=== PATIENT | male | born 1945 | race Two or more races ===

== ENCOUNTER 2017-04-09 17:45 | Inpatient (IN) | payer SELFPAY ==
[~2017-04-09] VITALS: Ht 160 cm; Wt 104.8 kg
[~2017-04-09 17:45] MED LIST: CAR200T PO; LIS5T PO; TRAM-297 PO
[2017-04-09] MEDS ORDERED: PANTOPRAZOLE 40 MG/10 ML VIAL IV STA (18:24)
[2017-04-09] MEDS ORDERED: SODIUM CHLORIDE 0.9% 500 ML IVB ONE (18:24)
[2017-04-09] MEDS ORDERED: ONDANSETRON HCL 4 MG/2 ML VIAL IV ONE ×2 (18:30→20:45)
[2017-04-09] MEDS ORDERED: MORPHINE SULFATE 4 MG/ML SYR/VIAL IV ONE (18:30)
[2017-04-09 18:52] LABS: Albumin 3.2 g/dL (3.4-5.0); Potassium 3.3 mmol/L (3.5-5.1)
[2017-04-09 18:53] LABS: INR 1.11 (0.9-1.15); Partial Thromboplastin Time 32.1 sec (22.64-33.71); Prothrombin Time 12.1 sec (9.37-12.3)
[2017-04-09 18:54] LABS: Basophils # (auto) 0 uL; Eosinophils # (auto) 0 uL; Lymphocytes # (auto) 0.9 uL; Lymphocytes % (auto) 7.6 % (10.0-50.0)
[2017-04-09 18:59] LABS: BUN/Creatinine Ratio 11.2; Basophils % (auto) 0.2 % (0.0-2.0); Bilirubin, Total 2.7 mg/dL (0.2-1.0); Eosinophils % (auto) 0.1 % (0.0-7.0); Hematocrit 51.2 % (41.0-53.0); Hemoglobin 18.1 g/dL (13.5-17.5); Mean Corpuscular Hemoglobin 36.2 pg (28.0-32.0); Mean Corpuscular Hgb Conc. 35.3 g/dL (32.0-36.0); Mean Corpuscular Volume 102.4 fL (80.0-100.0); Monocytes # (auto) 0.9 uL; Monocytes % (auto) 7.3 % (0.0-12.0); Neutrophils # (auto) 10.2 uL; Neutrophils % (auto) 84.8 % (37.0-80.0); Nucleated Red Blood Cells % 0.7 %; Platelet Count (auto) 103 10^3/uL (140-450); Red Cell Distribution Width 14.4 % (11.8-14.3); Total Protein 7.8 g/dL (6.4-8.2)
[2017-04-09 19:01] LABS: Amylase 141 U/L (25-115); Lipase 274 U/L (73-393)
[2017-04-09] MEDS ORDERED: BENZOCAINE (DENTAL) 20 % SPRAY 60ML MT ONE (20:42)
[2017-04-09] MEDS ORDERED: HYDROcodone-ACET 5/325MG TAB PO PRN (21:00)
[2017-04-09] MEDS ORDERED: ACETAMINOPHEN 500 MG TAB PO PRN (21:00)
[2017-04-09] MEDS ORDERED: cefTRIAXone 1GM/10ml IVPUSH 10 ML IV ONE (21:15)
[2017-04-09] MEDS: metroNIDAZOLE 500MG/100ML 100 ML IV SCH (21:48)
[2017-04-09] MEDS ORDERED: SODIUM CHLORIDE 0.9% 1,000 ML IV SCH (23:30)
[2017-04-10 00:57] LABS: Urine Bacteria NONE SEEN /hpf (None Seen); Urine Blood 2+ /uL (Negative); Urine Hyaline Cast MANY /lpf (0 - 2); Urine Mucus FEW (None Seen); Urine Specific Gravity 1.021 (1.001-1.035); Urine WBC 11 /hpf (0 - 3)
[2017-04-10] MEDS ORDERED: cefTRIAXone 1GM/10ml IVPUSH 10 ML IV ONE (03:02)
[2017-04-10] MEDS: metroNIDAZOLE 500MG/100ML 100 ML IV SCH ×3 (05:44→22:06)
[2017-04-10 06:48] LABS: Basophils # (auto) 0 uL; Lymphocytes # (auto) 1.1 uL; Neutrophils # (auto) 8.3 uL; Nucleated Red Blood Cells % 0.1 %
[2017-04-10 06:50] LABS: Basophils % (auto) 0.2 % (0.0-2.0); Eosinophils # (auto) 0.1 uL; Eosinophils % (auto) 0.5 % (0.0-7.0); Hematocrit 45.3 % (41.0-53.0); Lymphocytes % (auto) 10.2 % (10.0-50.0); Mean Corpuscular Hemoglobin 36.3 pg (28.0-32.0); Mean Corpuscular Hgb Conc. 35.3 g/dL (32.0-36.0); Monocytes # (auto) 1.2 uL; Monocytes % (auto) 11.5 % (0.0-12.0); Neutrophils % (auto) 77.6 % (37.0-80.0); Platelet Count (auto) 70 10^3/uL (140-450); Red Cell Distribution Width 14.5 % (11.8-14.3); White Blood Cell 10.7 10^3/uL (4.4-10.8)
[2017-04-10 06:53] LABS: BUN/Creatinine Ratio 15.3; Calcium 7.9 mg/dL (8.5-10.1); Potassium 3.5 mmol/L (3.5-5.1)
[2017-04-10] MEDS: cefTRIAXone 1GM/10ml IVPUSH 10 ML IV SCH (09:47)
[2017-04-10] MEDS: ONDANSETRON HCL 4 MG/2 ML VIAL IV PRN ×2 (10:08→10:59)
[2017-04-10] MEDS: MORPHINE SULFATE 4 MG/ML SYR/VIAL IV PRN ×2 (10:08→15:44)
[2017-04-10] MEDS ORDERED: GASTROGRAFIN 120 ML SOL ONE (11:41)
[2017-04-10] MEDS: D5W/SOD CHL 0.45%/KCL 20MEQ 1,000 ML IV SCH ×2 (11:42→22:06)
[2017-04-10 17:08] LABS: Basophils # (auto) 0 uL; Basophils % (auto) 0.3 % (0.0-2.0); Eosinophils # (auto) 0.1 uL; Mean Corpuscular Hgb Conc. 35.4 g/dL (32.0-36.0); Neutrophils # (auto) 7.5 uL
[2017-04-10 17:10] LABS: Eosinophils % (auto) 0.9 % (0.0-7.0); Hematocrit 48.1 % (41.0-53.0); Lymphocytes # (auto) 0.6 uL; Lymphocytes % (auto) 6.7 % (10.0-50.0); Mean Corpuscular Hemoglobin 36.6 pg (28.0-32.0); Mean Corpuscular Volume 103.4 fL (80.0-100.0); Monocytes % (auto) 10.7 % (0.0-12.0); Neutrophils % (auto) 81.4 % (37.0-80.0); Nucleated Red Blood Cells % 0.2 %; Platelet Count (auto) 71 10^3/uL (140-450); Red Blood Cells 4.65 10^6/uL (4.5-5.90); White Blood Cell 9.2 10^3/uL (4.4-10.8)
[2017-04-10 17:22] LABS: Albumin 2.8 g/dL (3.4-5.0); BUN/Creatinine Ratio 20.3; Calcium 7.9 mg/dL (8.5-10.1); Potassium 3.3 mmol/L (3.5-5.1)
[2017-04-10 17:25] LABS: Bilirubin, Total 2.7 mg/dL (0.2-1.0)
[2017-04-10 18:45] VITALS: BP 141/83
[2017-04-10 19:00] VITALS: BP 115/81
[2017-04-10 22:31] VITALS: BP 115/81
[2017-04-11] MEDS: MORPHINE SULFATE 4 MG/ML SYR/VIAL IV PRN ×4 (04:10→23:53)
[2017-04-11 05:34] VITALS: BP 133/77
[2017-04-11] MEDS: metroNIDAZOLE 500MG/100ML 100 ML IV SCH ×3 (05:58→23:27)
[2017-04-11 08:00] VITALS: BP 134/84
[2017-04-11 08:35] VITALS: BP 134/84
[2017-04-11] MEDS: D5W/SOD CHL 0.45%/KCL 20MEQ 1,000 ML IV SCH (10:00)
[2017-04-11] MEDS: cefTRIAXone 1GM/10ml IVPUSH 10 ML IV SCH (10:00)
[2017-04-11] MEDS: ONDANSETRON HCL 4 MG/2 ML VIAL IV PRN ×3 (10:18→23:52)
[2017-04-11] MEDS ORDERED: METOCLOPRAMIDE HCL 5MG/ml INJ 2ml VIAL IV ONE (10:30)
[2017-04-11 11:33] LABS: BUN/Creatinine Ratio 25.9
[2017-04-11 13:00] VITALS: BP 120/75
[2017-04-11] MEDS: D5W/SOD CHL 0.45%/KCL 40MEQ 1,000 ML IV SCH ×2 (13:42→20:15)
[2017-04-11 16:44] VITALS: BP 132/66
[2017-04-11 22:13] VITALS: BP 130/90
[2017-04-12 05:00] VITALS: BP 124/83
[2017-04-12] MEDS: metroNIDAZOLE 500MG/100ML 100 ML IV SCH ×3 (05:51→20:44)
[2017-04-12] MEDS: D5W/SOD CHL 0.45%/KCL 40MEQ 1,000 ML IV SCH ×3 (05:51→20:44)
[2017-04-12] MEDS: MORPHINE SULFATE 4 MG/ML SYR/VIAL IV PRN ×3 (06:49→16:30)
[2017-04-12] MEDS: ONDANSETRON HCL 4 MG/2 ML VIAL IV PRN (06:49)
[2017-04-12 08:00] VITALS: BP 139/93
[2017-04-12] MEDS: cefTRIAXone 1GM/10ml IVPUSH 10 ML IV SCH (09:53)
[2017-04-12] MEDS: HYDROcodone-ACET 10/325MG TAB PO PRN ×3 (11:36→19:03)
[2017-04-12 12:00] VITALS: BP 153/81
[2017-04-12 17:00] VITALS: BP 132/82
[2017-04-12] MEDS: CARISOPRODOL 350 MG TAB PO PRN (17:28)
[2017-04-12 21:56] VITALS: BP 136/90
[2017-04-13] MEDS: MORPHINE SULFATE 4 MG/ML SYR/VIAL IV PRN ×3 (03:25→13:34)
[2017-04-13 05:29] VITALS: BP 130/85
[2017-04-13] MEDS: metroNIDAZOLE 500MG/100ML 100 ML IV SCH ×3 (05:46→22:19)
[2017-04-13 07:06] LABS: Potassium 3.6 mmol/L (3.5-5.1)
[2017-04-13 07:09] LABS: BUN/Creatinine Ratio 17.9; Calcium 7.9 mg/dL (8.5-10.1)
[2017-04-13] MEDS: HYDROcodone-ACET 10/325MG TAB PO PRN ×4 (07:33→18:56)
[2017-04-13] MEDS: CARISOPRODOL 350 MG TAB PO PRN ×2 (07:33→15:37)
[2017-04-13] MEDS: D5W/SOD CHL 0.45%/KCL 40MEQ 1,000 ML IV SCH ×2 (08:00→18:21)
[2017-04-13 09:00] VITALS: BP 146/92
[2017-04-13] MEDS: cefTRIAXone 1GM/10ml IVPUSH 10 ML IV SCH (10:05)
[2017-04-13 13:00] VITALS: BP 150/90
[2017-04-13 17:00] VITALS: BP 143/88
[2017-04-13 20:00] VITALS: BP 141/86
[2017-04-13 22:00] VITALS: BP 141/86
[2017-04-14] MEDS: D5W/SOD CHL 0.45%/KCL 40MEQ 1,000 ML IV SCH ×2 (04:29→13:39)
[2017-04-14] MEDS: metroNIDAZOLE 500MG/100ML 100 ML IV SCH ×3 (05:36→21:39)
[2017-04-14 05:38] VITALS: BP 137/69
[2017-04-14 05:50] LABS: Basophils # (auto) 0 uL; Basophils % (auto) 0.9 % (0.0-2.0); Eosinophils # (auto) 0.4 uL; Hemoglobin 15.2 g/dL (13.5-17.5); Lymphocytes # (auto) 0.6 uL; Mean Corpuscular Hgb Conc. 35.4 g/dL (32.0-36.0); Monocytes # (auto) 0.4 uL; Red Blood Cells 4.14 10^6/uL (4.5-5.90)
[2017-04-14 05:53] LABS: Eosinophils % (auto) 13.1 % (0.0-7.0); Hematocrit 42.9 % (41.0-53.0); Mean Corpuscular Hemoglobin 36.7 pg (28.0-32.0); Mean Corpuscular Volume 103.7 fL (80.0-100.0); Monocytes % (auto) 13.8 % (0.0-12.0); Neutrophils # (auto) 1.4 uL; Neutrophils % (auto) 50.2 % (37.0-80.0); Nucleated Red Blood Cells % 0.3 %; Red Cell Distribution Width 14.5 % (11.8-14.3)
[2017-04-14 05:57] LABS: White Blood Cell 2.9 10^3/uL (4.4-10.8)
[2017-04-14 05:58] LABS: Platelet Count (auto) 43 10^3/uL (140-450)
[2017-04-14] MEDS: HYDROcodone-ACET 10/325MG TAB PO PRN (08:22)
[2017-04-14 08:30] VITALS: BP 133/82
[2017-04-14] MEDS: cefTRIAXone 1GM/10ml IVPUSH 10 ML IV SCH (09:22)
[2017-04-14 13:00] VITALS: BP 136/92
[2017-04-14 17:00] VITALS: BP 105/74
[2017-04-14 20:00] VITALS: BP 148/60
[2017-04-14 22:20] VITALS: BP 148/60
[2017-04-15] MEDS: D5W/SOD CHL 0.45%/KCL 40MEQ 1,000 ML IV SCH ×2 (00:20→10:00)
[2017-04-15 04:10] VITALS: BP 133/78
[2017-04-15] MEDS: metroNIDAZOLE 500MG/100ML 100 ML IV SCH (06:26)
[2017-04-15 06:58] LABS: BUN/Creatinine Ratio 11.6; Calcium 7.3 mg/dL (8.5-10.1); Potassium 3.9 mmol/L (3.5-5.1)
[2017-04-15] MEDS: cefTRIAXone 1GM/10ml IVPUSH 10 ML IV SCH (08:42)
[2017-04-15 08:44] VITALS: BP 132/93
[2017-04-15 12:19] VITALS: BP 139/92
== END 2017-04-15 13:30 | disposition home or self-care (01) | DRG 389 ==
LOC: ER 17:45 → OVERFLOW 17:46 → EAST 04-10 18:38
PROVIDERS: ADMIT Nurse Practitioner Family; ATTEND Internal Medicine Pulmonary Disease
DX: K56.0 Paralytic ileus (principal); K76.6 Portal hypertension; E44.0 Moderate protein-calorie malnutrition; D69.6 Thrombocytopenia, unspecified; Z68.41 Body mass index [BMI] 40.0-44.9, adult; E86.0 Dehydration; I11.9 Hypertensive heart disease without heart failure; K56.609 Unspecified intestinal obstruction, unspecified as to partial versus complete obstruction; D72.829 Elevated white blood cell count, unspecified; E87.6 Hypokalemia; K56.600 Partial intestinal obstruction, unspecified as to cause; K74.60 Unspecified cirrhosis of liver; N20.0 Calculus of kidney
CPT/HCPCS: 36415; 71045; 74021; 74176; 74250; 80048; 80053; 81001; 82150; 83690; 85025; 85610; 85730; 87040; 93005; 94761; 96361; 96365; 96375; 96376; C9113; J2405; J3490

== ENCOUNTER 2017-09-14 09:39 | Inpatient (IN) | payer MEDICAID, MEDICARE ==
[~2017-09-14] VITALS: Ht 167.6 cm; Wt 108.0 kg
[2017-09-14 10:42] LABS: Basophils # (auto) 0 uL; Lymphocytes # (auto) 1.1 uL; Monocytes # (auto) 0.9 uL; Neutrophils # (auto) 6.5 uL; Platelet Count (auto) 72 10^3/uL (140-450)
[2017-09-14 10:43] LABS: Basophils % (auto) 0.5 % (0.0-2.0); Eosinophils # (auto) 0.1 uL; Eosinophils % (auto) 0.7 % (0.0-7.0); Hematocrit 49.5 % (41.0-53.0); Hemoglobin 17.6 g/dL (13.5-17.5); Mean Corpuscular Hgb Conc. 35.5 g/dL (32.0-36.0); Mean Corpuscular Volume 104.3 fL (80.0-100.0); Monocytes % (auto) 10.7 % (0.0-12.0); Neutrophils % (auto) 75.1 % (37.0-80.0); Nucleated Red Blood Cells % 0.3 %; Red Blood Cells 4.74 10^6/uL (4.5-5.90); Red Cell Distribution Width 14.2 % (11.8-14.3); White Blood Cell 8.7 10^3/uL (4.4-10.8)
[2017-09-14 10:52] LABS: Alanine Aminotransferase 38 U/L (16-61); Albumin 2.8 g/dL (3.4-5.0); Amylase 78 U/L (25-115); Anion Gap 11 (5-15); Aspartate Aminotransferase 44 U/L (15-37); BUN/Creatinine Ratio 12.3; Blood Urea Nitrogen 19 mg/dL (7-18); Calcium 8.2 mg/dL (8.5-10.1); Carbon Dioxide 25 mmol/L (21-32); Chloride 104 mmol/L (98-107); GFR African American 57 mL/min; GFR Non-African American 47 mL/min; Glucose 105 mg/dL (74-106); Lipase 192 U/L (73-393); Potassium 3.5 mmol/L (3.5-5.1); Sodium 140 mmol/L (136-145)
[2017-09-14 11:03] LABS: Alkaline Phosphatase 105 U/L (45-117); Bilirubin, Total 3.6 mg/dL (0.2-1.0); Total Protein 7.5 g/dL (6.4-8.2)
[2017-09-14 11:11] LABS: Urine Bacteria FEW /hpf (None Seen); Urine Blood 1+ /uL (Negative); Urine Mucus FEW (None Seen); Urine Specific Gravity 1.025 (1.001-1.035); Urine WBC 5 /hpf (0 - 3)
[2017-09-14] MEDS ORDERED: SODIUM CHLORIDE 0.9% 1,000 ML IV ONE (11:17)
[2017-09-14] MEDS ORDERED: MORPHINE SULFATE 4 MG/ML SYR/VIAL IV ONE (13:00)
[2017-09-14] MEDS ORDERED: ONDANSETRON HCL 4 MG/2 ML VIAL IV ONE (13:00)
[2017-09-14] MEDS: SODIUM CHLORIDE 0.9% 1,000 ML IV SCH ×2 (13:28→23:16)
[2017-09-14] MEDS ORDERED: MORPHINE SULF INJ 2 MG/ML SYRINGE 1ML IV PRN (13:30)
[2017-09-14] MEDS ORDERED: NITROGLYCERIN 0.4 MG SL TAB SL PRN (13:30)
[2017-09-14] MEDS ORDERED: TEMAZEPAM 15 MG CAP PO PRN (13:30)
[2017-09-14] MEDS ORDERED: cefTRIAXone 1GM/10ml IVPUSH 10 ML IV ONE (13:30)
[2017-09-14] MEDS ORDERED: LORazepam 0.5 MG TAB PO PRN (13:30)
[2017-09-14] MEDS ORDERED: PROMETHAZINE HCL 25 MG/ML 1ML IV PRN (13:30)
[2017-09-14 13:40] LABS: Amylase 80 U/L (25-115); Lipase 179 U/L (73-393)
[2017-09-14] MEDS: metroNIDAZOLE 500MG/100ML 100 ML IV SCH ×3 (13:52→23:40)
[2017-09-14] MEDS: FAMOTIDINE (10MG/ML) 2ML VL IV SCH (13:52)
[2017-09-14 20:00] VITALS: BP 107/71
[2017-09-14 21:07] VITALS: BP_SYST 107; BP_SYST 109; BP_SYST 134; BP_DIAS 65; BP_DIAS 71; BP_DIAS 76
[2017-09-14] MEDS: MORPHINE SULFATE 4 MG/ML SYR/VIAL IV PRN (22:07)
[2017-09-15] MEDS: FAMOTIDINE (10MG/ML) 2ML VL IV SCH ×2 (01:18→13:23)
[2017-09-15] MEDS: MORPHINE SULFATE 4 MG/ML SYR/VIAL IV PRN ×4 (02:47→20:37)
[2017-09-15] MEDS: SODIUM CHLORIDE 0.9% 1,000 ML IV SCH ×3 (05:04→20:09)
[2017-09-15 05:32] VITALS: BP 122/87
[2017-09-15 05:55] LABS: Basophils # (auto) 0 uL; Lymphocytes # (auto) 0.9 uL; Monocytes # (auto) 0.7 uL; Nucleated Red Blood Cells % 0.1 %; Red Blood Cells 4.24 10^6/uL (4.5-5.90); White Blood Cell 6.6 10^3/uL (4.4-10.8)
[2017-09-15 05:57] LABS: Basophils % (auto) 0.3 % (0.0-2.0); Eosinophils # (auto) 0.3 uL; Eosinophils % (auto) 4.7 % (0.0-7.0); Hematocrit 44.8 % (41.0-53.0); Lymphocytes % (auto) 14.4 % (10.0-50.0); Mean Corpuscular Hemoglobin 37.8 pg (28.0-32.0); Mean Corpuscular Hgb Conc. 35.8 g/dL (32.0-36.0); Mean Corpuscular Volume 105.7 fL (80.0-100.0); Monocytes % (auto) 10.7 % (0.0-12.0); Neutrophils # (auto) 4.6 uL; Neutrophils % (auto) 69.9 % (37.0-80.0); Platelet Count (auto) 55 10^3/uL (140-450); Red Cell Distribution Width 14.5 % (11.8-14.3)
[2017-09-15] MEDS: metroNIDAZOLE 500MG/100ML 100 ML IV SCH ×4 (06:04→23:44)
[2017-09-15 06:19] LABS: Albumin 2.5 g/dL (3.4-5.0); BUN/Creatinine Ratio 21.9; Bilirubin, Total 2.8 mg/dL (0.2-1.0); Calcium 7.2 mg/dL (8.5-10.1); Potassium 3.5 mmol/L (3.5-5.1); Total Protein 6.6 g/dL (6.4-8.2)
[2017-09-15 09:00] VITALS: BP 135/82
[2017-09-15] MEDS: cefTRIAXone 1GM/10ml IVPUSH 10 ML IV SCH (09:00)
[2017-09-15] MEDS: ENOXAPARIN SOD 40 MG/0.4 ML SYRINGE SC SCH (09:45)
[2017-09-15 13:00] VITALS: BP 116/84
[2017-09-15 17:24] VITALS: BP 156/97
[2017-09-15 20:00] VITALS: BP 144/92
[2017-09-15 21:55] VITALS: BP 144/92
[2017-09-16] MEDS: MORPHINE SULFATE 4 MG/ML SYR/VIAL IV PRN ×2 (02:51→20:27)
[2017-09-16 05:24] VITALS: BP 132/77
[2017-09-16] MEDS: metroNIDAZOLE 500MG/100ML 100 ML IV SCH ×4 (05:42→23:49)
[2017-09-16 05:51] LABS: Basophils # (auto) 0 uL; Eosinophils # (auto) 0.4 uL; Mean Corpuscular Volume 106.5 fL (80.0-100.0); Monocytes # (auto) 0.4 uL
[2017-09-16 05:54] LABS: Basophils % (auto) 0.4 % (0.0-2.0); Eosinophils % (auto) 9.5 % (0.0-7.0); Hematocrit 41.9 % (41.0-53.0); Hemoglobin 15.1 g/dL (13.5-17.5); Lymphocytes # (auto) 0.9 uL; Lymphocytes % (auto) 21.9 % (10.0-50.0); Mean Corpuscular Hemoglobin 38.3 pg (28.0-32.0); Mean Corpuscular Hgb Conc. 35.9 g/dL (32.0-36.0); Monocytes % (auto) 10.2 % (0.0-12.0); Neutrophils # (auto) 2.3 uL; Nucleated Red Blood Cells % 0.3 %; Platelet Count (auto) 51 10^3/uL (140-450); Red Blood Cells 3.94 10^6/uL (4.5-5.90); Red Cell Distribution Width 14.3 % (11.8-14.3)
[2017-09-16 06:03] LABS: Potassium 3.5 mmol/L (3.5-5.1)
[2017-09-16 06:08] LABS: Albumin 2.5 g/dL (3.4-5.0); Calcium 7.8 mg/dL (8.5-10.1); Magnesium 2.2 mg/dL (1.6-2.6)
[2017-09-16 06:11] LABS: Bilirubin, Total 1.8 mg/dL (0.2-1.0); Total Protein 6.3 g/dL (6.4-8.2)
[2017-09-16 08:06] VITALS: BP 140/60
[2017-09-16] MEDS: cefTRIAXone 1GM/10ml IVPUSH 10 ML IV SCH (09:13)
[2017-09-16] MEDS: ENOXAPARIN SOD 40 MG/0.4 ML SYRINGE SC SCH (09:13)
[2017-09-16] MEDS: PANTOPRAZOLE 40 MG/10 ML VIAL IV SCH (09:13)
[2017-09-16 12:21] VITALS: BP 138/62
[2017-09-16] MEDS ORDERED: GASTROGRAFIN 120 ML SOL ONE (14:23)
[2017-09-16 16:12] VITALS: BP 147/79
[2017-09-16] MEDS: SODIUM CHLORIDE 0.9% 1,000 ML IV SCH (17:11)
[2017-09-16 20:00] VITALS: BP 148/93
[2017-09-16 21:30] VITALS: BP 148/93
[2017-09-17] VITALS (7 sets, daily range): BP systolic 109–159; BP diastolic 65–96
[2017-09-17] MEDS: SODIUM CHLORIDE 0.9% 1,000 ML IV SCH ×2 (04:31→12:27)
[2017-09-17] MEDS: metroNIDAZOLE 500MG/100ML 100 ML IV SCH ×3 (05:32→18:13)
[2017-09-17 07:27] LABS: Basophils # (auto) 0 uL; Eosinophils # (auto) 0.2 uL; Neutrophils # (auto) 2.5 uL
[2017-09-17 07:30] LABS: Basophils % (auto) 0.5 % (0.0-2.0); Eosinophils % (auto) 5.8 % (0.0-7.0); Hematocrit 42.5 % (41.0-53.0); Lymphocytes # (auto) 0.6 uL; Lymphocytes % (auto) 17.1 % (10.0-50.0); Mean Corpuscular Hemoglobin 37.1 pg (28.0-32.0); Mean Corpuscular Hgb Conc. 35.2 g/dL (32.0-36.0); Mean Corpuscular Volume 105.4 fL (80.0-100.0); Monocytes # (auto) 0.4 uL; Monocytes % (auto) 10.9 % (0.0-12.0); Neutrophils % (auto) 65.7 % (37.0-80.0); Nucleated Red Blood Cells % 0.1 %; Platelet Count (auto) 58 10^3/uL (140-450); Red Blood Cells 4.04 10^6/uL (4.5-5.90); Red Cell Distribution Width 14.4 % (11.8-14.3); White Blood Cell 3.8 10^3/uL (4.4-10.8)
[2017-09-17 07:51] LABS: Albumin 2.5 g/dL (3.4-5.0); BUN/Creatinine Ratio 19.4; Bilirubin, Total 1.4 mg/dL (0.2-1.0); Calcium 7.6 mg/dL (8.5-10.1); Potassium 3.6 mmol/L (3.5-5.1); Total Protein 6.5 g/dL (6.4-8.2)
[2017-09-17] MEDS: cefTRIAXone 1GM/10ml IVPUSH 10 ML IV SCH (10:07)
[2017-09-17] MEDS: PANTOPRAZOLE 40 MG/10 ML VIAL IV SCH (10:07)
[2017-09-17] MEDS: ENOXAPARIN SOD 40 MG/0.4 ML SYRINGE SC SCH (10:07)
[2017-09-17] MEDS: LACTULOSE 20Gm/30ML SOLN PO SCH ×2 (12:42→18:13)
[2017-09-18 05:00] VITALS: BP 101/67
[2017-09-18] MEDS: metroNIDAZOLE 500MG/100ML 100 ML IV SCH ×3 (05:48→11:46)
[2017-09-18] MEDS: LACTULOSE 20Gm/30ML SOLN PO SCH ×3 (05:48→11:46)
[2017-09-18 07:25] LABS: Albumin 2.3 g/dL (3.4-5.0); BUN/Creatinine Ratio 15.2; Calcium 7.5 mg/dL (8.5-10.1); Potassium 3.4 mmol/L (3.5-5.1)
[2017-09-18 07:28] LABS: Total Protein 5.6 g/dL (6.4-8.2)
[2017-09-18 08:30] VITALS: BP 98/69
[2017-09-18 09:07] VITALS: BP 98/69
[2017-09-18] MEDS: PANTOPRAZOLE 40 MG/10 ML VIAL IV SCH (09:38)
[2017-09-18] MEDS: cefTRIAXone 1GM/10ml IVPUSH 10 ML IV SCH (09:38)
[2017-09-18] MEDS: ENOXAPARIN SOD 40 MG/0.4 ML SYRINGE SC SCH (09:38)
[2017-09-18] MEDS: SODIUM CHLORIDE 0.9% 1,000 ML IV SCH (11:46)
[2017-09-18] MEDS ORDERED: POTASSIUM CHL 20 Meq TABLET PO ONE (13:15)
[2017-09-18 13:18] VITALS: BP 99/69
[2017-09-18 14:24] VITALS: BP 99/69
[2017-09-18 17:00] VITALS: BP 125/75
== END 2017-09-18 17:40 | disposition home health service (06) | DRG 388 ==
LOC: ER 09:39 → TELE 09:40 → TELE-WESTW 16:04
PROVIDERS: ADMIT Internal Medicine; ATTEND Internal Medicine
DX: K56.609 Unspecified intestinal obstruction, unspecified as to partial versus complete obstruction (principal); N17.0 Acute kidney failure with tubular necrosis; N39.0 Urinary tract infection, site not specified; K76.6 Portal hypertension; E44.0 Moderate protein-calorie malnutrition; K43.9 Ventral hernia without obstruction or gangrene; K74.60 Unspecified cirrhosis of liver; D69.59 Other secondary thrombocytopenia; I10 Essential (primary) hypertension; I70.0 Atherosclerosis of aorta; K56.0 Paralytic ileus; Z90.49 Acquired absence of other specified parts of digestive tract; D75.89 Other specified diseases of blood and blood-forming organs; Z68.38 Body mass index [BMI] 38.0-38.9, adult
CPT/HCPCS: 36415; 71045; 74176; 74250; 80053; 81001; 82140; 82150; 83690; 83735; 84484; 85025; 85652; 87086; 93005; 96361; 96374; 96375; 97163; A6257; C9113; J0696; J2405; J3490

== ENCOUNTER → 2017-09-27 | Outpatient (CLI) | payer MEDICAID ==
[2017-09-27 08:07] LABS: Basophils # (auto) 0 uL; Eosinophils # (auto) 0.2 uL; Hemoglobin 16.2 g/dL (13.5-17.5); Lymphocytes # (auto) 1.2 uL; Lymphocytes % (auto) 38.7 % (10.0-50.0); Monocytes # (auto) 0.4 uL; Neutrophils # (auto) 1.3 uL; Red Cell Distribution Width 14.9 % (11.8-14.3); White Blood Cell 3.1 10^3/uL (4.4-10.8)
[2017-09-27 08:11] LABS: Basophils % (auto) 1.5 % (0.0-2.0); Eosinophils % (auto) 5.6 % (0.0-7.0); Hematocrit 45.5 % (41.0-53.0); Mean Corpuscular Hemoglobin 37.7 pg (28.0-32.0); Mean Corpuscular Hgb Conc. 35.6 g/dL (32.0-36.0); Mean Corpuscular Volume 105.8 fL (80.0-100.0); Monocytes % (auto) 12.6 % (0.0-12.0); Neutrophils % (auto) 41.6 % (37.0-80.0); Nucleated Red Blood Cells % 0.2 %; Platelet Count (auto) 85 10^3/uL (140-450); Urine Blood TRACE /uL (Negative); Urine Specific Gravity 1.009 (1.001-1.035)
[2017-09-27 08:18] LABS: INR 1.15 (0.9-1.15); Prothrombin Time 12.2 sec (9.27-12.13)
[2017-09-27 08:33] LABS: Albumin 2.8 g/dL (3.4-5.0); BUN/Creatinine Ratio 12.8; Bilirubin, Total 2.1 mg/dL (0.2-1.0); Calcium 8.1 mg/dL (8.5-10.1); Potassium 3.9 mmol/L (3.5-5.1); Total Protein 7.3 g/dL (6.4-8.2)
[2017-09-27 08:35] LABS: % Iron Saturation 83.6 % (20-55)
[2017-09-27 08:42] LABS: Folate (Folic Acid) 10.92 ng/mL (5.38-24)
== END | disposition home or self-care (01) ==
LOC: LAB 07:17
PROVIDERS: ATTEND Nurse Practitioner
DX: K70.30 Alcoholic cirrhosis of liver without ascites (principal); I10 Essential (primary) hypertension
CPT/HCPCS: 36415; 80053; 80061; 81003; 82150; 82306; 82607; 82746; 83036; 83540; 83550; 83690; 84443; 85025; 85610; 85730

== ENCOUNTER → 2017-10-02 | Outpatient (CLI) | payer MEDICAID | END | disposition home or self-care (01) | LOC: LAB 12:12 | PROVIDERS: ATTEND Nurse Practitioner | DX: K70.30 Alcoholic cirrhosis of liver without ascites (principal) | CPT/HCPCS: 82270 ==

== ENCOUNTER 2019-08-01 13:48 | Inpatient (IN) | payer MEDICAID, MEDICARE ==
[~2019-08-01] VITALS: Ht 162.6 cm; Wt 110.6 kg
[~2019-08-01 13:48] MED LIST changes: -CAR200T PO; +ENAL2.5T PO; +GABA300C10 PO; +LACT10SO3 PO; -LIS5T PO; +RIFA550T PO; +SPIR25TA88 PO; -TRAM-297 PO
[2019-08-01] MEDS ORDERED: KETOROLAC TROMETH 60MG/2ML VIAL IM ONE (14:45)
[2019-08-01 15:20] LABS: Anion Gap 6 (5-15); Blood Urea Nitrogen 15 mg/dL (7-18); Calcium 7.4 mg/dL (8.5-10.1); Carbon Dioxide 22 mmol/L (21-32); Chloride 114 mmol/L (98-107); Glucose 88 mg/dL (74-106); Hemoglobin 9.7 g/dL (13.5-17.5); Sodium 142 mmol/L (136-145)
[2019-08-01 15:22] LABS: Basophils # (auto) 0 10 ^3/uL (0-0.2); Basophils % (auto) 0.9 % (0.0-2.0); Eosinophils # (auto) 0.2 10 ^3/uL (0-0.8); Eosinophils % (auto) 6.8 % (0.0-7.0); Hematocrit 30.2 % (41.0-53.0); Lymphocytes # (auto) 0.7 10 ^3/uL (0.4-5.4); Lymphocytes % (auto) 21.3 % (10.0-50.0); Mean Corpuscular Hemoglobin 27.8 pg (28.0-32.0); Mean Corpuscular Hgb Conc. 32.2 g/dL (32.0-36.0); Mean Corpuscular Volume 86.3 fL (80.0-100.0); Monocytes # (auto) 0.4 10 ^3/uL (0-1.3); Monocytes % (auto) 13.4 % (0.0-12.0); Neutrophils # (auto) 1.9 10 ^3/uL (1.6-8.6); Neutrophils % (auto) 57.6 % (37.0-80.0); Nucleated Red Blood Cells % 0.2 %; White Blood Cell 3.3 10^3/uL (4.4-10.8)
[2019-08-01 15:23] LABS: Alanine Aminotransferase 34 U/L (16-61); Aspartate Aminotransferase 41 U/L (15-37); BUN/Creatinine Ratio 14.9; GFR African American 94 mL/min; GFR Non-African American 77 mL/min
[2019-08-01 15:27] LABS: Alkaline Phosphatase 87 U/L (45-117); Bilirubin, Total 1.3 mg/dL (0.2-1.0); Total Protein 5.5 g/dL (6.4-8.2)
[2019-08-01 15:30] LABS: Red Cell Distribution Width 20.8 % (11.8-14.3)
[2019-08-01 15:31] LABS: Platelet Count (auto) 17 10^3/uL (140-450)
[2019-08-01] MEDS ORDERED: ALUM & MAG HYDROX-SIMETH LIQ(MAALOX) 30 ML PO PRN (17:00)
[2019-08-01] MEDS ORDERED: ONDANSETRON HCL 4 MG/2 ML VIAL IV PRN (17:00)
[2019-08-01] MEDS ORDERED: LORazepam 0.5 MG TAB PO PRN (17:00)
[2019-08-01] MEDS ORDERED: DOCUSATE SOD 100 MG CAP PO PRN (17:00)
[2019-08-01] MEDS ORDERED: MORPHINE SULF INJ 2 MG/ML SYRINGE 1ML IV PRN ×3 (17:00)
[2019-08-01] MEDS ORDERED: NITROGLYCERIN 0.4 MG SL TAB SL PRN ×2 (17:00)
[2019-08-01 17:25] LABS: Urine Bacteria NONE SEEN /hpf (None Seen); Urine Blood Negative /uL (Negative); Urine Specific Gravity 1.004 (1.001-1.035); Urine WBC <1 /hpf (0 - 3)
[2019-08-01 17:42] LABS: Amphetamine Screen, Urine NEGATIVE (NEGATIVE); Barbiturate Scree,Urine NEGATIVE (NEGATIVE); Benzodiazephine Screen, Urine NEGATIVE (NEGATIVE); Cannabinoid Screen, Urine NEGATIVE (NEGATIVE); Cocaine Screen, Urine NEGATIVE (NEGATIVE); Opiate Scree,Urine NEGATIVE (NEGATIVE); Phencyclidine Screen, Urine NEGATIVE (NEGATIVE)
[2019-08-01 17:49] LABS: Alcohol, Urine < 3.0 mg/dL (0-10)
[2019-08-01 18:06] LABS: Cholesterol 92 mg/dL (< 200)
[2019-08-01 18:10] LABS: HDL Cholesterol 46 mg/dL (40-59); LDL Cholesterol 38 mg/dL (< 100); Triglycerides 66 mg/dL (< 150)
[2019-08-01] MEDS ORDERED: GABAPENTIN 300 MG CAP PO ONE (18:30)
[2019-08-01] MEDS ORDERED: FUROSEMIDE 20 MG/2 ML VIAL IV ONE (18:30)
[2019-08-01] MEDS ORDERED: PANTOPRAZOLE 40 MG/10 ML VIAL INJ IV ONE (18:30)
[2019-08-01 20:40] VITALS: BP 132/90
[2019-08-01] MEDS: HYDROcodone-ACET 5/325MG TAB PO PRN (21:24)
[2019-08-01] MEDS: rifAXIMin 550 MG TAB PO SCH (21:24)
[2019-08-01 22:00] VITALS: BP 132/90
[2019-08-02 05:00] VITALS: BP 124/86
[2019-08-02] MEDS: GABAPENTIN 300 MG CAP PO SCH ×2 (05:15→13:59)
[2019-08-02] MEDS: LACTULOSE 20Gm/30ML SOLN PO SCH ×3 (05:15→12:00)
[2019-08-02] MEDS ORDERED: FUROSEMIDE 20 MG/2 ML VIAL IV SCH (06:00)
[2019-08-02 06:53] LABS: Basophils # (auto) 0 10 ^3/uL (0-0.2); Eosinophils # (auto) 0.2 10 ^3/uL (0-0.8); Hemoglobin 9.9 g/dL (13.5-17.5); Lymphocytes # (auto) 0.6 10 ^3/uL (0.4-5.4); Monocytes # (auto) 0.4 10 ^3/uL (0-1.3); Neutrophils # (auto) 1.4 10 ^3/uL (1.6-8.6); White Blood Cell 2.6 10^3/uL (4.4-10.8)
[2019-08-02 06:55] LABS: Basophils % (auto) 0.7 % (0.0-2.0); Eosinophils % (auto) 9.1 % (0.0-7.0); Hematocrit 30.3 % (41.0-53.0); Lymphocytes % (auto) 21.6 % (10.0-50.0); Mean Corpuscular Hemoglobin 28.3 pg (28.0-32.0); Mean Corpuscular Hgb Conc. 32.5 g/dL (32.0-36.0); Mean Corpuscular Volume 87.1 fL (80.0-100.0); Monocytes % (auto) 15.1 % (0.0-12.0); Neutrophils % (auto) 53.5 % (37.0-80.0); Nucleated Red Blood Cells % 0.1 %; Red Blood Cells 3.48 10^6/uL (4.5-5.90)
[2019-08-02 06:57] LABS: INR 1.28 (0.9-1.15); Partial Thromboplastin Time 34.2 sec (23.64-32.05)
[2019-08-02 06:59] LABS: Red Cell Distribution Width 20.7 % (11.8-14.3)
[2019-08-02 07:07] LABS: Alanine Aminotransferase 33 U/L (16-61); Albumin 1.9 g/dL (3.4-5.0); Anion Gap 6 (5-15); Aspartate Aminotransferase 39 U/L (15-37); BUN/Creatinine Ratio 15.2; Blood Urea Nitrogen 14 mg/dL (7-18); Carbon Dioxide 22 mmol/L (21-32); Chloride 113 mmol/L (98-107); GFR African American 104 mL/min; GFR Non-African American 86 mL/min; Glucose 72 mg/dL (74-106); Potassium 3.7 mmol/L (3.5-5.1); Sodium 141 mmol/L (136-145); Uric Acid 6.9 mg/dL (3.5-7.2)
[2019-08-02 07:12] LABS: Alkaline Phosphatase 86 U/L (45-117); Bilirubin, Total 1.9 mg/dL (0.2-1.0); Phosphorus 3.4 mg/dL (2.5-4.90); Total Protein 5.4 g/dL (6.4-8.2)
[2019-08-02 08:56] VITALS: BP 132/81
[2019-08-02] MEDS: HYDROcodone-ACET 5/325MG TAB PO PRN (09:17)
[2019-08-02] MEDS: rifAXIMin 550 MG TAB PO SCH (09:17)
[2019-08-02] MEDS ORDERED: ENALAPRIL MALEATE 2.5 MG TAB PO SCH (10:00)
[2019-08-02] MEDS ORDERED: SPIRONOLACTONE 25 MG TAB PO SCH (10:00)
[2019-08-02] MEDS ORDERED: PANTOPRAZOLE 40 MG/10 ML VIAL INJ IV SCH (10:00)
[2019-08-02 10:03] LABS: Platelet Count (auto) 30 10^3/uL (140-450)
[2019-08-02 12:33] VITALS: BP 132/75
[2019-08-02] MEDS ORDERED: GICOCKTAIL PO (15:05)
[2019-08-02] MEDS ORDERED: LACT10SO3 PO (15:05)
[2019-08-02] MEDS ORDERED: RIFA550T PO (15:05)
[2019-08-02] MEDS ORDERED: PANT40TA2 PO (15:05)
[2019-08-02] MEDS ORDERED: FURO1TAB31 PO (15:05)
[2019-08-02] MEDS ORDERED: SPIR25TA88 PO (15:05)
[2019-08-02] MEDS ORDERED: ENAL2.5T PO (15:05)
[2019-08-02] MEDS ORDERED: GABA300C10 PO (15:05)
[2019-08-02] MEDS ORDERED: DOCU100C8 PO (15:05)
[2019-08-02 16:40] VITALS: BP 128/74
[2019-08-02 16:41] VITALS: BP 128/84
== END 2019-08-02 17:30 | disposition home or self-care (01) | DRG 48 ==
LOC: ER 13:48 → TELE 13:49 → TELE-WESTW 20:35
PROVIDERS: ADMIT Hospitalist; ATTEND Hospitalist
DX: G50.0 Trigeminal neuralgia (principal); E43 Unspecified severe protein-calorie malnutrition; K70.31 Alcoholic cirrhosis of liver with ascites; G93.40 Encephalopathy, unspecified; N18.6 End stage renal disease; D61.818 Other pancytopenia; K76.6 Portal hypertension; Z68.41 Body mass index [BMI] 40.0-44.9, adult; K72.90 Hepatic failure, unspecified without coma; K43.2 Incisional hernia without obstruction or gangrene; Z79.899 Other long term (current) drug therapy; K31.89 Other diseases of stomach and duodenum; R60.1 Generalized edema; D63.8 Anemia in other chronic diseases classified elsewhere; D46.9 Myelodysplastic syndrome, unspecified
CPT/HCPCS: 36415; 70450; 80053; 80061; 80307; 81001; 83036; 83735; 83880; 84100; 84484; 84550; 85025; 85610; 85730; 87086; 93005; 99291; C9113; G0378; J1885

== ENCOUNTER 2019-08-15 02:58 | Inpatient (IN) | payer MEDICAID, MEDICARE ==
[~2019-08-15] VITALS: Ht 167.6 cm; Wt 99.5 kg
[~2019-08-15 02:58] MED LIST changes: +DOCU100C8 PO; +FURO1TAB31 PO; +GICOCKTAIL PO; +PANT40TA2 PO
[2019-08-15] MEDS ORDERED: ACCU-CHEK COMFORT CURVE STRIP VI ONE (03:15)
[2019-08-15] MEDS ORDERED: HALOPERIDOL LACTATE 5 MG/ML INJ VIAL IM ONE ×2 (03:45→04:30)
[2019-08-15] MEDS ORDERED: diphenhdrAMINE HCL 50 MG/1 ML VL IM ONE ×2 (03:45→04:30)
[2019-08-15] MEDS ORDERED: LORazepam 2MG/ML-1ML VIAL IM ONE ×2 (03:45→04:30)
[2019-08-15 04:43] LABS: Urine Bacteria FEW /hpf (None Seen); Urine Blood Negative /uL (Negative); Urine Specific Gravity 1.016 (1.001-1.035); Urine WBC 1 /hpf (0 - 3)
[2019-08-15 04:46] LABS: Amphetamine Screen, Urine NEGATIVE (NEGATIVE); Barbiturate Scree,Urine NEGATIVE (NEGATIVE); Benzodiazephine Screen, Urine NEGATIVE (NEGATIVE); Cannabinoid Screen, Urine NEGATIVE (NEGATIVE); Cocaine Screen, Urine NEGATIVE (NEGATIVE); Opiate Scree,Urine NEGATIVE (NEGATIVE); Phencyclidine Screen, Urine NEGATIVE (NEGATIVE)
[2019-08-15 04:49] LABS: Alcohol, Urine < 3.0 mg/dL (0-10)
[2019-08-15 06:07] LABS: Basophils # (auto) 0 10 ^3/uL (0-0.2); Eosinophils # (auto) 0 10 ^3/uL (0-0.8); Hemoglobin 10.5 g/dL (13.5-17.5); Lymphocytes # (auto) 0.2 10 ^3/uL (0.4-5.4); Mean Corpuscular Hgb Conc. 32.4 g/dL (32.0-36.0); Monocytes # (auto) 0.3 10 ^3/uL (0-1.3); Neutrophils # (auto) 1.7 10 ^3/uL (1.6-8.6); White Blood Cell 2.3 10^3/uL (4.4-10.8)
[2019-08-15 06:12] LABS: Basophils % (auto) 0.9 % (0.0-2.0); Eosinophils % (auto) 1.1 % (0.0-7.0); Hematocrit 32.6 % (41.0-53.0); Lymphocytes % (auto) 9.4 % (10.0-50.0); Mean Corpuscular Volume 86.5 fL (80.0-100.0); Monocytes % (auto) 13.5 % (0.0-12.0); Neutrophils % (auto) 75.1 % (37.0-80.0); Nucleated Red Blood Cells % 0.2 %; Red Blood Cells 3.76 10^6/uL (4.5-5.90)
[2019-08-15 06:21] LABS: Red Cell Distribution Width 20.5 % (11.8-14.3)
[2019-08-15 06:24] LABS: Alanine Aminotransferase 32 U/L (16-61); Albumin 2.3 g/dL (3.4-5.0); Anion Gap 6 (5-15); Aspartate Aminotransferase 40 U/L (15-37); BUN/Creatinine Ratio 15.8; Blood Urea Nitrogen 18 mg/dL (7-18); Calcium 7.8 mg/dL (8.5-10.1); Carbon Dioxide 24 mmol/L (21-32); Chloride 114 mmol/L (98-107); GFR African American 81 mL/min; GFR Non-African American 67 mL/min; Glucose 102 mg/dL (74-106); INR 1.23 (0.9-1.15); Potassium 3.6 mmol/L (3.5-5.1); Sodium 144 mmol/L (136-145)
[2019-08-15 06:25] LABS: Platelet Count (auto) 19 10^3/uL (140-450)
[2019-08-15 06:29] LABS: Alkaline Phosphatase 81 U/L (45-117); Bilirubin, Total 1.7 mg/dL (0.2-1.0); Total Protein 6.1 g/dL (6.4-8.2)
[2019-08-15] MEDS ORDERED: LACTULOSE 20Gm/30ML SOLN PR ONE (07:15)
[2019-08-15] MEDS ORDERED: NITROGLYCERIN 0.4 MG SL TAB SL PRN (07:30)
[2019-08-15] MEDS ORDERED: ONDANSETRON HCL 4 MG/2 ML VIAL IV PRN (07:30)
[2019-08-15] MEDS ORDERED: MORPHINE SULF INJ 2 MG/ML SYRINGE 1ML IV PRN (07:30)
[2019-08-15] MEDS: SODIUM CHLORIDE 0.9% 1,000 ML IV SCH ×2 (08:14→18:16)
[2019-08-15] MEDS: cefTRIAXone 1GM/50ML D5W 50 ML IV SCH (08:58)
[2019-08-15] MEDS ORDERED: LACTULOSE 20Gm/30ML SOLN PR SCH (12:00)
[2019-08-15 12:01] VITALS: BP 118/62
[2019-08-15] MEDS: LACTULOSE 20Gm/30ML SOLN NG SCH ×2 (12:16→18:15)
[2019-08-15 12:17] VITALS: BP 128/82
[2019-08-15 14:15] VITALS: BP 131/77
[2019-08-15 15:15] VITALS: BP 135/75
--- NOTE | 2019-08-15 15:30 | NUR ---
MS admit from ER MARK BLANCHARD admitted to tele/MS after SBAR received. Patient unresponsive when asked name. Respirations noted to be even and unlabored on 2L oxygen via nasal cannula. NG tube to R nare is currently clamped. This nurse did not receive orders to start suction. Patient also has a urethral catheter hanging below bladder and draining to gravity. Rectal tube is also in place and secure. Mittens applied to both hands for safety. Patient trying to pull IVF tubing, fraser tubing. Sitter is at bedside for safety. Bed is low, locked with 2x side rails up. Call light is within reach. Will continue to monitor Q1hr and PRN.
--- NOTE | 2019-08-15 15:55 | NUR ---
Spoke with family Spoke with Olga () and obtained patient's history. Advised to bring a copy of medication list, verbalized understanding. is aware of patient's status. She stated that patient became very altered over night and then stopped responding verbally when asked questions. All questions have been answered. Will continue to monitor.
[2019-08-15 16:44] VITALS: BP 111/64
[2019-08-15] MEDS ORDERED: chlordiazePOXIDE HCL 5 MG CAP NG PRN (17:45)
--- NOTE | 2019-08-15 18:06 | NUR ---
MRSA swab Collected and sent to lab.
--- NOTE | 2019-08-15 19:25 | NUR ---
Opening Shift Note Assumed care of patient, awake, alert to self, on 2L of oxygen via NC with even and unlabored respirations, no S/S of distress/SOB or pain. Sitter at bedside, patient able to turn in bed independently, bed in lowest locked position, side rails up x2, and call light within reach. Instructed on POC and to call for assist PRN, will continue to monitor for changes Q1hr and PRN.
[2019-08-15 21:14] VITALS: BP 118/70
[2019-08-16 04:56] VITALS: BP 101/63
--- NOTE | 2019-08-16 05:45 | NUR ---
NG TUBE REMOVED ROUNDING ON PATIENT, NOTICED HIS NG TUBE HAD BEEN PULLED FROM NARES. PATIENT STILL SLEEPING AND HARD TO WAKE, WILL CONTINUE TO MONITOR.
[2019-08-16 06:00] VITALS: BP 139/82
[2019-08-16 06:08] LABS: Hematocrit 30.5 % (41.0-53.0); White Blood Cell 2.7 10^3/uL (4.4-10.8)
[2019-08-16 06:10] LABS: Hemoglobin 9.8 g/dL (13.5-17.5); Mean Corpuscular Hemoglobin 27.7 pg (28.0-32.0); Mean Corpuscular Hgb Conc. 32.2 g/dL (32.0-36.0); Red Blood Cells 3.54 10^6/uL (4.5-5.90)
[2019-08-16 06:13] LABS: Platelet Count (auto) 19 10^3/uL (140-450); Red Cell Distribution Width 20.9 % (11.8-14.3)
[2019-08-16 06:14] LABS: Band Neutrophils % (manual) 0; Basophils % (manual) 0 (0.0-2.0); Blast Cells 0; Metamyelocytes % 0; Myelocytes % 0; Promyelocytes % 0; Reactive Lymphocytes 0
--- NOTE | 2019-08-16 06:25 | NUR ---
CRITICAL LAB RECEIVED CALL FROM LAB, PLATELETS 19. HOSPITALIST PAGED, NO NEW ORDERS RECEIVED, WILL CONTINUE TO MONITOR AND NOTIFY DAY SHIFT RN.
[2019-08-16 06:27] LABS: Albumin 2.1 g/dL (3.4-5.0); BUN/Creatinine Ratio 14.6; Calcium 7.4 mg/dL (8.5-10.1); Potassium 3.7 mmol/L (3.5-5.1)
[2019-08-16 06:30] LABS: Bilirubin, Total 2.2 mg/dL (0.2-1.0); Total Protein 5.7 g/dL (6.4-8.2)
[2019-08-16 08:50] LABS: Eosinophils % (manual) 5 (0-7); Lymphocytes % (manual) 23 (10.0-50.0); Monocytes % (manual) 13 (0-12)
[2019-08-16] MEDS: LACTULOSE 20Gm/30ML SOLN NG SCH ×5 (09:04→23:06)
[2019-08-16] MEDS: SODIUM CHLORIDE 0.9% 1,000 ML IV SCH ×2 (09:04→23:30)
[2019-08-16] MEDS: cefTRIAXone 1GM/50ML D5W 50 ML IV SCH (09:45)
[2019-08-16] MEDS: IBUPROFEN 600 MG TAB PO PRN (12:33)
[2019-08-16 13:00] VITALS: BP 123/77
[2019-08-16 16:57] VITALS: BP 128/73
[2019-08-16 22:00] VITALS: BP 124/75
[2019-08-16] MEDS: GABAPENTIN 100 MG CAP PO SCH (22:00)
[2019-08-17 05:00] VITALS: BP 124/69
[2019-08-17] MEDS: LACTULOSE 20Gm/30ML SOLN NG SCH (05:15)
[2019-08-17 09:00] VITALS: BP 115/59
[2019-08-17] MEDS: cefTRIAXone 1GM/50ML D5W 50 ML IV SCH (09:10)
[2019-08-17] MEDS: GABAPENTIN 100 MG CAP PO SCH (09:44)
--- NOTE | 2019-08-17 10:00 | NUR ---
REMOVED RECTAL TUBE PATIENT AMBULATED TO BATHROOM HAD LARGE SOFT BM. NO COMPLAINTS OF ABDOMINAL PAIN.
[2019-08-17 10:30] LABS: Basophils # (auto) 0 10 ^3/uL (0-0.2); Eosinophils # (auto) 0.2 10 ^3/uL (0-0.8); Hemoglobin 10.2 g/dL (13.5-17.5); Lymphocytes # (auto) 0.6 10 ^3/uL (0.4-5.4); Monocytes # (auto) 0.4 10 ^3/uL (0-1.3); Neutrophils # (auto) 1.7 10 ^3/uL (1.6-8.6); Neutrophils % (auto) 58.7 % (37.0-80.0); Nucleated Red Blood Cells % 0.1 %
[2019-08-17 10:31] LABS: Eosinophils % (auto) 5.9 % (0.0-7.0); Hematocrit 31.5 % (41.0-53.0); Lymphocytes % (auto) 20.9 % (10.0-50.0); Mean Corpuscular Hemoglobin 27.9 pg (28.0-32.0); Mean Corpuscular Hgb Conc. 32.5 g/dL (32.0-36.0); Mean Corpuscular Volume 85.9 fL (80.0-100.0); Monocytes % (auto) 13.5 % (0.0-12.0); Platelet Count (auto) 44 10^3/uL (140-450); Red Blood Cells 3.66 10^6/uL (4.5-5.90); White Blood Cell 2.9 10^3/uL (4.4-10.8)
[2019-08-17 10:32] LABS: Red Cell Distribution Width 20.4 % (11.8-14.3)
[2019-08-17] MEDS ORDERED: rifAXIMin 550 MG TAB PO ONE (12:15)
[2019-08-17 13:00] VITALS: BP 115/57
[2019-08-17] MEDS: SODIUM CHLORIDE 0.9% 1,000 ML IV SCH (13:36)
--- NOTE | 2019-08-17 16:10 | NUR ---
Nutrition Assessment Notes Please refer to link for full assessment notes. Est Energy needs: 3034-3651 kcals (14-18 kcal/kgBW) Est Protein needs: 97-129 gms/day (1.56-2.0 gm/kgIBW) Will continue to monitor and reassess prn. Addendum: 08/17/19 at [address] Amended: Links added.
[2019-08-17 17:00] VITALS: BP 129/80
[2019-08-17] MEDS: LACTULOSE 20Gm/30ML SOLN PO SCH ×2 (18:05→23:06)
--- NOTE | 2019-08-17 20:05 | NUR ---
C/O PAIN PATIENT C/O SUDDEN ONSET OF HEADACHE RATED 9/10 USING ADULT PAIN SCALE. ONLY PRN OFFERED AT THIS TIME, PATIENT VERBALIZED UNDERSTANDING AND IN AGREEMENT. SEE EMAR FOR ADMINISTRATION. ON[facility]CALL [facility] PAGED. AWAITING CALL BACK.
[2019-08-17] MEDS: IBUPROFEN 600 MG TAB PO PRN (20:06)
--- NOTE | 2019-08-17 20:30 | NUR ---
CALL BACK FROM MD RECEIVED CALL BACK FROM ON-CALL HOSP. UPDATED MD ON PATIENT STATUS AND COMPLAINT. NEW ORDERS RECEIVED, READ BACK AND VERIFIED (SEE NEW ORDERS). WILL CARRY OUT. WILL CONTINUE TO MONITOR PATIENT.
[2019-08-17] MEDS ORDERED: ACETAMINOPHEN 325 MG TAB PO PRN (20:45)
[2019-08-17] MEDS ORDERED: HYDROcodone-ACET 5/325MG TAB PO PRN (20:45)
--- NOTE | 2019-08-17 21:00 | NUR ---
Robles catheter dc'd Robles not indicated. Patient requests removal which is causing discomfort. Per protocol, Robles dc'd with clean technique after deflation of balloon. Patient tolerated well with no complaints of pain. Will continue to monitor urine output.
[2019-08-17] MEDS: rifAXIMin 550 MG TAB PO SCH (21:16)
[2019-08-17 22:00] VITALS: BP 104/72
[2019-08-17] MEDS: MORPHINE SULF INJ 2 MG/ML SYRINGE 1ML IV PRN (22:54)
--- NOTE | 2019-08-17 23:00 | NUR ---
Urine Output Patient's urine output 300ml at this. Will continue to monitor.
--- NOTE | 2019-08-18 01:00 | NUR ---
URINE OUTPUT PATIENT URINATED ADDITIONAL 200ML AFTER PULIDO REMOVAL. NO BLADDER DISTENSION. WILL CONTINUE TO MONITOR.
[2019-08-18] MEDS: SODIUM CHLORIDE 0.9% 1,000 ML IV SCH ×3 (01:20→21:25)
--- NOTE | 2019-08-18 05:00 | NUR ---
URINE OUTPUT ADDITIONAL 185 ML URINE OUTPUT. NO BLADDER DISTENSION OR DISCOMFORT. WILL CONTINUE TO MONITOR.
[2019-08-18 05:16] VITALS: BP 123/70
[2019-08-18] MEDS: LACTULOSE 20Gm/30ML SOLN PO SCH ×3 (05:23→17:30)
--- NOTE | 2019-08-18 07:10 | NUR ---
OPENING SHIFT NOTE ASSUMED CARE OF PATIENT FROM GROUP ACCOUNT DIRECTOR RN PATI. PATIENT IS AWAKE, ALERT, AND ORIENTED X4. PATIENT HAS NO S/S OF DISTRESS/SOB OR PAIN. INSTRUCTED PATIENT ON POC, PATIENT VERBALIZED UNDERSTANDING. BED IS IN LOWEST POSITION WITH SIDE RAILS RAISED X2, BED WHEELS LOCKED, AND CALL LIGHT IS WITHIN REACH. WILL CONTINUE TO MONITOR.
[2019-08-18 08:00] VITALS: BP 116/75
[2019-08-18 09:00] VITALS: BP 116/75
[2019-08-18] MEDS: rifAXIMin 550 MG TAB PO SCH ×2 (09:13→21:25)
[2019-08-18] MEDS: cefTRIAXone 1GM/50ML D5W 50 ML IV SCH (09:13)
--- NOTE | 2019-08-18 10:27 | NUR ---
PATIENT TAKEN DOWN FOR SMALL BOWEL SERIES.
[2019-08-18] MEDS ORDERED: GASTROGRAFIN 120 ML SOL ONE (10:41)
--- NOTE | 2019-08-18 11:25 | NUR ---
SPOKE WITH DR. MAGALLON. PER MD CALL JESSICA WITH SMALL BOWEL SERIES RESULTS AND IF THEY ARE NEGATIVE AND DR. LOPEZ CLEARS HIM, HE WILL PUT IN DISCHARGE ORDER. WILL FOLLOW THROUGH WITH ORDERS.
--- NOTE | 2019-08-18 12:36 | NUR ---
SPOKE WITH AUDITOR IN CHARGE. PER TECH THEY ARE NOT DONE WITH SMALL BOWEL SERIES, PATIENT IS NPO.
[2019-08-18 13:00] VITALS: BP 122/85
--- NOTE | 2019-08-18 14:20 | NUR ---
ELECTROENCEPHALOGRAM EEG COMPLETED AT BEDSIDE. PRIMARY RN JANETT MACIAS.
[2019-08-18 15:28] LABS: Folate (Folic Acid) 12.55 ng/mL (5.38-24)
[2019-08-18 17:00] VITALS: BP 136/82
[2019-08-18] MEDS: MORPHINE SULF INJ 2 MG/ML SYRINGE 1ML IV PRN (17:31)
--- NOTE | 2019-08-18 19:07 | NUR ---
CLOSING SHIFT NOTE ENDORSED CARE TO FLIGHT SECURITY SPECIALIST RN LAZARO. PATIENT HAS NO S/S OF DISTRESS/SOB OR PAIN AT THIS TIME.
--- NOTE | 2019-08-18 19:45 | NUR ---
Opening Shift Note Assumed care of patient after receiving report from day RN. Patient is awake and alert with no S/S of distress/SOB or pain. Call light within reach, bed in lowest position x2 side rails, HOB in semi Fowlers. Instructed on POC and to call for assist PRN, will continue to monitor for changes Q1hr and PRN.
--- NOTE | 2019-08-18 21:00 | NUR ---
Patient ambulating Patient ambulated to restroom, even gait noted. Standby assistance needed for stability.
[2019-08-18 22:00] VITALS: BP 132/77
[2019-08-19] MEDS: LACTULOSE 20Gm/30ML SOLN PO SCH ×3 (00:15→12:00)
[2019-08-19 05:00] VITALS: BP 116/78
[2019-08-19 08:00] VITALS: BP 124/82
[2019-08-19] MEDS: rifAXIMin 550 MG TAB PO SCH (09:10)
[2019-08-19] MEDS: cefTRIAXone 1GM/50ML D5W 50 ML IV SCH (09:10)
[2019-08-19 09:11] VITALS: BP 124/82
[2019-08-19 12:44] VITALS: BP 124/86
--- NOTE | 2019-08-19 12:52 | NUR ---
PATIENT DISCHARGED HOME WITH FAMILY. ALL IV ACCESS DISCONTINUED. PATIENT NON TELEMETRY. ALL DISCHARGE INSTRUCTIONS GIVEN. ALL DISCHARGE PAPERWORK SIGNED.
== END 2019-08-19 12:50 | disposition home or self-care (01) | DRG 280 ==
LOC: ER 03:01 → OVERFLOW 03:02 → WEST WING 15:04
PROVIDERS: ADMIT Nurse Practitioner; ATTEND Family Medicine
PROC: 30233R1 Transfusion of Nonautologous Platelets into Peripheral Vein, Percutaneous Approach (ICD-10-PCS; principal; 2019-08-15)
DX: K70.40 Alcoholic hepatic failure without coma (principal); G92 Toxic encephalopathy; K56.600 Partial intestinal obstruction, unspecified as to cause; D61.818 Other pancytopenia; E72.20 Disorder of urea cycle metabolism, unspecified; K70.31 Alcoholic cirrhosis of liver with ascites; G50.0 Trigeminal neuralgia; I10 Essential (primary) hypertension; D69.6 Thrombocytopenia, unspecified; F17.200 Nicotine dependence, unspecified, uncomplicated; J32.0 Chronic maxillary sinusitis; Z79.899 Other long term (current) drug therapy; Z82.49 Family history of ischemic heart disease and other diseases of the circulatory system; Z87.898 Personal history of other specified conditions
CPT/HCPCS: 36415; 36430; 70450; 71045; 71250; 74176; 74250; 80053; 80307; 81001; 82140; 82607; 82746; 82962; 83605; 83880; 84484; 85007; 85025; 85027; 85610; 85730; 86850; 86900; 86901; 87040; 87081; 93005; 95819; 96365; 96372; A4565; G0378; J0696

== ENCOUNTER 2019-09-16 16:20 | Emergency (ER) | payer MEDICAID ==
[~2019-09-16] VITALS: Ht 167.6 cm; Wt 93.0 kg
[~2019-09-16 16:20] MED LIST changes: -ENAL2.5T PO; +ENAL2.5T7 PO
[2019-09-16 17:17] LABS: Basophils # (auto) 0 10 ^3/uL (0-0.2); Eosinophils # (auto) 0.1 10 ^3/uL (0-0.8); Lymphocytes # (auto) 0.6 10 ^3/uL (0.4-5.4); Mean Corpuscular Volume 86.1 fL (80.0-100.0); Monocytes # (auto) 0.2 10 ^3/uL (0-1.3); Platelet Count (auto) 46 10^3/uL (140-450)
[2019-09-16 17:19] LABS: Basophils % (auto) 0.9 % (0.0-2.0); Eosinophils % (auto) 7.3 % (0.0-7.0); Hematocrit 31.5 % (41.0-53.0); Lymphocytes % (auto) 29.4 % (10.0-50.0); Mean Corpuscular Hemoglobin 27.4 pg (28.0-32.0); Mean Corpuscular Hgb Conc. 31.8 g/dL (32.0-36.0); Monocytes % (auto) 11.1 % (0.0-12.0); Neutrophils % (auto) 51.3 % (37.0-80.0); Red Blood Cells 3.66 10^6/uL (4.5-5.90)
[2019-09-16 17:26] LABS: Red Cell Distribution Width 21.6 % (11.8-14.3)
[2019-09-16 17:34] LABS: Albumin 1.9 g/dL (3.4-5.0); Anion Gap 7 (5-15); Blood Urea Nitrogen 12 mg/dL (7-18); Calcium 7.5 mg/dL (8.5-10.1); Carbon Dioxide 20 mmol/L (21-32); Chloride 115 mmol/L (98-107); Glucose 126 mg/dL (74-106); Sodium 142 mmol/L (136-145)
[2019-09-16 17:36] LABS: Alanine Aminotransferase 34 U/L (16-61); GFR African American 104 mL/min; GFR Non-African American 86 mL/min
[2019-09-16 17:38] LABS: Alkaline Phosphatase 81 U/L (45-117); Aspartate Aminotransferase 37 U/L (15-37); Bilirubin, Total 1.3 mg/dL (0.2-1.0); Total Protein 5.7 g/dL (6.4-8.2)
[2019-09-16] MEDS ORDERED: ONDANSETRON HCL 4 MG/2 ML VIAL IV ONE (20:45)
[2019-09-16] MEDS ORDERED: MORPHINE SULFATE 4 MG/ML SYR/VIAL IV ONE (20:45)
[2019-09-16 21:00] VITALS: BP 108/67
[2019-09-16 22:43] LABS: Urine Bacteria NONE SEEN /hpf (None Seen); Urine Blood Negative /uL (Negative); Urine Specific Gravity 1.014 (1.001-1.035); Urine WBC 4 /hpf (0 - 3)
== END 2019-09-16 22:20 | disposition home or self-care (01) ==
LOC: ER 16:20
DX: R60.0 Localized edema (principal); R10.9 Unspecified abdominal pain; D72.819 Decreased white blood cell count, unspecified; Z90.49 Acquired absence of other specified parts of digestive tract
CPT/HCPCS: 36415; 70450; 74176; 80053; 81001; 83880; 84484; 85025; 93005; 96374; 96375; 99285; J2270; J2405

== ENCOUNTER 2020-03-29 14:26 | Inpatient (IN) | payer MEDICAID, MEDICARE ==
[~2020-03-29] VITALS: Ht 167.6 cm; Wt 104.6 kg
[~2020-03-29 14:26] MED LIST changes: +DOCU100C10 PO; -DOCU100C8 PO; +SPIR25TA PO; -SPIR25TA88 PO
[2020-03-29 16:38] LABS: Albumin 2.2 g/dL (3.4-5.0); Calcium 8.1 mg/dL (8.5-10.1); Potassium 3.9 mmol/L (3.5-5.1)
[2020-03-29 16:39] LABS: BUN/Creatinine Ratio 16.8
[2020-03-29 16:42] LABS: Bilirubin, Total 1.4 mg/dL (0.2-1.0); Total Protein 6.2 g/dL (6.4-8.2)
[2020-03-29 18:53] LABS: Hematocrit 34.1 % (41.0-53.0); Hemoglobin 11.1 g/dL (13.5-17.5); Mean Corpuscular Hgb Conc. 32.7 g/dL (32.0-36.0); Mean Corpuscular Volume 91.9 fL (80.0-100.0); Red Blood Cells 3.71 10^6/uL (4.5-5.90); Red Cell Distribution Width 22.2 % (11.8-14.3); White Blood Cell 3.9 10^3/uL (4.4-10.8)
[2020-03-29 18:54] LABS: Basophils % (manual) 0 (0.0-2.0); Blast Cells 0; Eosinophils % (manual) 0 (0-7); Platelet Count (auto) 32 10^3/uL (140-450); Promyelocytes % 0; Reactive Lymphocytes 0
[2020-03-29 19:09] LABS: Band Neutrophils % (manual) 22; Lymphocytes % (manual) 12 (10.0-50.0); Metamyelocytes % 1; Monocytes % (manual) 17 (0-12); Myelocytes % 1
[2020-03-29] MEDS ORDERED: MORPHINE SULF INJ 2 MG/ML SYRINGE 1ML IV PRN ×2 (19:30)
[2020-03-29] MEDS ORDERED: NITROGLYCERIN 0.4 MG SL TAB SL PRN (19:30)
[2020-03-29] MEDS ORDERED: ONDANSETRON HCL 4 MG/2 ML VIAL IV PRN (19:30)
[2020-03-29] MEDS ORDERED: ACETAMINOPHEN 500 MG TAB PO PRN (19:30)
[2020-03-30] VITALS (8 sets, daily range): BP systolic 107–130; BP diastolic 66–83
[2020-03-30] MEDS: LACTULOSE 20Gm/30ML SOLN PO SCH ×3 (03:30→21:26)
[2020-03-30] MEDS: PROPRANOLOL HCL 20 MG TAB PO SCH ×3 (03:31→21:28)
[2020-03-30] MEDS: carBAMazepine 200 MG TAB PO SCH ×3 (03:32→21:29)
[2020-03-30 06:33] LABS: Albumin 1.9 g/dL (3.4-5.0); Calcium 7.8 mg/dL (8.5-10.1); Potassium 4.1 mmol/L (3.5-5.1)
[2020-03-30 06:36] LABS: BUN/Creatinine Ratio 18.5
[2020-03-30 06:42] LABS: Bilirubin, Total 1.2 mg/dL (0.2-1.0); Total Protein 5.3 g/dL (6.4-8.2)
[2020-03-30 08:10] LABS: Hemoglobin 10.2 g/dL (13.5-17.5)
[2020-03-30 08:14] LABS: Hematocrit 30.3 % (41.0-53.0); Mean Corpuscular Hemoglobin 31.2 pg (28.0-32.0); Mean Corpuscular Hgb Conc. 33.7 g/dL (32.0-36.0); Mean Corpuscular Volume 92.4 fL (80.0-100.0); Red Blood Cells 3.28 10^6/uL (4.5-5.90); White Blood Cell 3.3 10^3/uL (4.4-10.8)
[2020-03-30 08:22] LABS: Platelet Count (auto) 18 10^3/uL (140-450); Red Cell Distribution Width 22.3 % (11.8-14.3)
[2020-03-30 08:23] LABS: Basophils % (manual) 0 (0.0-2.0); Blast Cells 0; Metamyelocytes % 0; Myelocytes % 0; Promyelocytes % 0; Reactive Lymphocytes 0
[2020-03-30 09:18] LABS: Band Neutrophils % (manual) 1; Eosinophils % (manual) 3 (0-7); Lymphocytes % (manual) 20 (10.0-50.0); Monocytes % (manual) 27 (0-12)
[2020-03-30] MEDS: FUROSEMIDE 40 MG TAB PO SCH (11:25)
[2020-03-30] MEDS: SPIRONOLACTONE 25 MG TAB PO SCH (11:26)
[2020-03-30] MEDS ORDERED: AZITHROMYCIN 500MG/ 250ML 250 ML IV ONE ×2 (12:45→16:15)
[2020-03-30] MEDS ORDERED: cefTRIAXone 1GM/50ML D5W 50 ML IV ONE ×2 (12:45→16:15)
[2020-03-30] MEDS ORDERED: CHOLECALCIFEROL (VITD3) 2,000 UNIT CAP/TAB PO ONE ×2 (12:45→16:15)
[2020-03-30] MEDS ORDERED: ZINC SULFATE 220mg CAP or TAB PO ONE ×2 (12:45→16:15)
[2020-03-30] MEDS ORDERED: ASCORBIC ACID 500 MG TAB PO ONE ×2 (12:45→16:15)
[2020-03-30] MEDS ORDERED: IOHEXOL 350 MG/ML 100ML IJ ONE ×2 (12:53→16:16)
[2020-03-30] MEDS: DexAMETHasone SOD PHOS 10MG/1ML VIAL INJ IV SCH (13:28)
[2020-03-30 17:15] LABS: BUN/Creatinine Ratio 17.3; Calcium 7.6 mg/dL (8.5-10.1)
[2020-03-30 17:17] LABS: INR 1.18 (0.9-1.15); Partial Thromboplastin Time 32.6 sec (23.0-31.2)
[2020-03-30] MEDS ORDERED: [UNRECOGNIZED DRUG - CODE] PO (18:23)
[2020-03-30 20:09] LABS: Hematocrit 33.2 % (41.0-53.0); Mean Corpuscular Hgb Conc. 33.2 g/dL (32.0-36.0)
[2020-03-30 20:12] LABS: Mean Corpuscular Hemoglobin 30.7 pg (28.0-32.0); Mean Corpuscular Volume 92.4 fL (80.0-100.0); Red Blood Cells 3.59 10^6/uL (4.5-5.90)
[2020-03-30 20:34] LABS: Red Cell Distribution Width 22.3 % (11.8-14.3)
[2020-03-30 20:35] LABS: Platelet Count (auto) 19 10^3/uL (140-450)
[2020-03-30 20:36] LABS: Basophils % (manual) 0 (0.0-2.0); Blast Cells 0; Promyelocytes % 0; Reactive Lymphocytes 0
[2020-03-30 22:05] LABS: Band Neutrophils % (manual) 25; Eosinophils % (manual) 6 (0-7); Lymphocytes % (manual) 20 (10.0-50.0); Metamyelocytes % 3; Monocytes % (manual) 15 (0-12); Myelocytes % 1
[2020-03-31 01:29] VITALS: BP 122/73
[2020-03-31 05:00] VITALS: BP 105/73
[2020-03-31 06:44] LABS: Hemoglobin 9.9 g/dL (13.5-17.5); White Blood Cell 2.6 10^3/uL (4.4-10.8)
[2020-03-31 06:47] LABS: Hematocrit 28.9 % (41.0-53.0); Mean Corpuscular Hemoglobin 31.3 pg (28.0-32.0); Mean Corpuscular Hgb Conc. 34.3 g/dL (32.0-36.0); Mean Corpuscular Volume 91.4 fL (80.0-100.0); Red Blood Cells 3.16 10^6/uL (4.5-5.90)
[2020-03-31 07:07] LABS: Band Neutrophils % (manual) 0; Basophils % (manual) 0 (0.0-2.0); Blast Cells 0; Metamyelocytes % 0; Myelocytes % 0; Promyelocytes % 0; Reactive Lymphocytes 0
[2020-03-31 07:51] LABS: Eosinophils % (manual) 5 (0-7); Lymphocytes % (manual) 35 (10.0-50.0); Monocytes % (manual) 16 (0-12)
[2020-03-31 08:24] VITALS: BP 87/42
[2020-03-31] MEDS: FUROSEMIDE 40 MG TAB PO SCH (10:00)
[2020-03-31] MEDS: PROPRANOLOL HCL 20 MG TAB PO SCH ×2 (10:00→22:00)
[2020-03-31] MEDS: cefTRIAXone 1GM/50ML D5W 50 ML IV SCH (10:29)
[2020-03-31] MEDS: DexAMETHasone SOD PHOS 10MG/1ML VIAL INJ IV SCH (10:29)
[2020-03-31] MEDS: AZITHROMYCIN 500MG/ 250ML 250 ML IV SCH (10:30)
[2020-03-31] MEDS: SPIRONOLACTONE 25 MG TAB PO SCH (10:31)
[2020-03-31] MEDS: ZINC SULFATE 220mg CAP or TAB PO SCH (10:31)
[2020-03-31] MEDS: LACTULOSE 20Gm/30ML SOLN PO SCH ×2 (10:31→22:35)
[2020-03-31] MEDS: carBAMazepine 200 MG TAB PO SCH ×2 (10:32→22:36)
[2020-03-31] MEDS: CHOLECALCIFEROL (VITD3) 2,000 UNIT CAP/TAB PO SCH (10:33)
[2020-03-31] MEDS: ASCORBIC ACID 500 MG TAB PO SCH (10:33)
[2020-03-31 12:39] VITALS: BP 98/66
[2020-03-31 16:55] VITALS: BP 97/66
[2020-03-31 22:00] VITALS: BP 95/52
[2020-04-01 05:00] VITALS: BP 120/72
[2020-04-01 06:29] LABS: Basophils # (auto) 0 10 ^3/uL (0-0.2); Basophils % (auto) 0.1 % (0.0-2.0); Eosinophils # (auto) 0 10 ^3/uL (0-0.8); Monocytes % (auto) 6.1 % (0.0-12.0); Neutrophils # (auto) 4.5 10 ^3/uL (1.6-8.6); White Blood Cell 5.7 10^3/uL (4.4-10.8)
[2020-04-01 06:31] LABS: Hematocrit 31.5 % (41.0-53.0); Hemoglobin 10.6 g/dL (13.5-17.5); Lymphocytes # (auto) 0.8 10 ^3/uL (0.4-5.4); Lymphocytes % (auto) 14.8 % (10.0-50.0); Mean Corpuscular Hemoglobin 31.1 pg (28.0-32.0); Mean Corpuscular Hgb Conc. 33.7 g/dL (32.0-36.0); Mean Corpuscular Volume 92.2 fL (80.0-100.0); Monocytes # (auto) 0.3 10 ^3/uL (0-1.3); Nucleated Red Blood Cells % 0.3 %; Red Blood Cells 3.42 10^6/uL (4.5-5.90)
[2020-04-01 06:42] LABS: Red Cell Distribution Width 21.5 % (11.8-14.3)
[2020-04-01 06:45] LABS: Albumin 2.1 g/dL (3.4-5.0); Calcium 7.8 mg/dL (8.5-10.1); Potassium 4.1 mmol/L (3.5-5.1)
[2020-04-01 06:47] LABS: BUN/Creatinine Ratio 16.7
[2020-04-01 06:49] LABS: Bilirubin, Total 1.3 mg/dL (0.2-1.0); Total Protein 5.7 g/dL (6.4-8.2)
[2020-04-01 09:00] VITALS: BP 107/69
[2020-04-01] MEDS: cefTRIAXone 1GM/50ML D5W 50 ML IV SCH (09:56)
[2020-04-01 10:13] LABS: Hepatitis B Surface Antibody Negative
[2020-04-01] MEDS: LACTULOSE 20Gm/30ML SOLN PO SCH ×2 (10:17→21:52)
[2020-04-01] MEDS: ZINC SULFATE 220mg CAP or TAB PO SCH (10:17)
[2020-04-01] MEDS: AZITHROMYCIN 500MG/ 250ML 250 ML IV SCH (10:17)
[2020-04-01] MEDS: DexAMETHasone SOD PHOS 10MG/1ML VIAL INJ IV SCH (10:17)
[2020-04-01] MEDS: SPIRONOLACTONE 25 MG TAB PO SCH (10:18)
[2020-04-01] MEDS: carBAMazepine 200 MG TAB PO SCH ×2 (10:18→21:53)
[2020-04-01] MEDS: PROPRANOLOL HCL 20 MG TAB PO SCH ×2 (10:18→21:52)
[2020-04-01] MEDS: ASCORBIC ACID 500 MG TAB PO SCH (10:18)
[2020-04-01] MEDS: FUROSEMIDE 40 MG TAB PO SCH (10:18)
[2020-04-01] MEDS: CHOLECALCIFEROL (VITD3) 2,000 UNIT CAP/TAB PO SCH (10:19)
[2020-04-01 10:21] LABS: Hepatitis A Total Antibody Positive
[2020-04-01 12:29] LABS: Hepatitis B Core Total AB Negative; Hepatitis B Surface Antigen Negative (Negative); Hepatitis C Antibody Negative (Negative)
[2020-04-01 13:00] VITALS: BP 109/70
[2020-04-01 17:00] VITALS: BP 124/74
[2020-04-01] MEDS: HYDROcodone-ACET 5/325MG TAB PO PRN (17:42)
[2020-04-01 22:04] VITALS: BP 127/79
[2020-04-02] MEDS: HYDROcodone-ACET 5/325MG TAB PO PRN ×2 (04:57→11:42)
[2020-04-02 05:00] VITALS: BP 121/72
[2020-04-02 06:04] LABS: Basophils # (auto) 0 10 ^3/uL (0-0.2); Eosinophils # (auto) 0 10 ^3/uL (0-0.8); Hemoglobin 11.1 g/dL (13.5-17.5); Lymphocytes # (auto) 0.9 10 ^3/uL (0.4-5.4); Monocytes # (auto) 0.5 10 ^3/uL (0-1.3); Nucleated Red Blood Cells % 0.1 %; White Blood Cell 6.1 10^3/uL (4.4-10.8)
[2020-04-02 06:06] LABS: Basophils % (auto) 0.1 % (0.0-2.0); Hematocrit 32.9 % (41.0-53.0); Lymphocytes % (auto) 15.4 % (10.0-50.0); Mean Corpuscular Hemoglobin 31.3 pg (28.0-32.0); Mean Corpuscular Hgb Conc. 33.6 g/dL (32.0-36.0); Mean Corpuscular Volume 93.2 fL (80.0-100.0); Monocytes % (auto) 8.9 % (0.0-12.0); Neutrophils # (auto) 4.6 10 ^3/uL (1.6-8.6); Neutrophils % (auto) 75.6 % (37.0-80.0); Red Blood Cells 3.53 10^6/uL (4.5-5.90)
[2020-04-02 06:10] LABS: Red Cell Distribution Width 21.6 % (11.8-14.3)
[2020-04-02 06:23] LABS: Potassium 4.1 mmol/L (3.5-5.1)
[2020-04-02 06:31] LABS: Albumin 2.2 g/dL (3.4-5.0); BUN/Creatinine Ratio 19.2; Bilirubin, Total 1.2 mg/dL (0.2-1.0); Calcium 7.4 mg/dL (8.5-10.1); Total Protein 6.1 g/dL (6.4-8.2)
[2020-04-02 08:00] VITALS: BP 94/42
[2020-04-02] MEDS: DexAMETHasone SOD PHOS 10MG/1ML VIAL INJ IV SCH (09:28)
[2020-04-02] MEDS: cefTRIAXone 1GM/50ML D5W 50 ML IV SCH (09:28)
[2020-04-02] MEDS: carBAMazepine 200 MG TAB PO SCH ×2 (09:29→21:31)
[2020-04-02] MEDS: AZITHROMYCIN 500MG/ 250ML 250 ML IV SCH (09:29)
[2020-04-02] MEDS: CHOLECALCIFEROL (VITD3) 2,000 UNIT CAP/TAB PO SCH (09:30)
[2020-04-02] MEDS: ASCORBIC ACID 500 MG TAB PO SCH (09:30)
[2020-04-02] MEDS: LACTULOSE 20Gm/30ML SOLN PO SCH ×2 (09:32→21:31)
[2020-04-02] MEDS: ZINC SULFATE 220mg CAP or TAB PO SCH (09:33)
[2020-04-02] MEDS: SPIRONOLACTONE 25 MG TAB PO SCH (09:36)
[2020-04-02 10:00] VITALS: BP 97/61
[2020-04-02 16:00] VITALS: BP 90/64
[2020-04-02 22:00] VITALS: BP 97/65
[2020-04-03 05:00] VITALS: BP 95/55
[2020-04-03 08:30] VITALS: BP 98/62
[2020-04-03] MEDS: ZINC SULFATE 220mg CAP or TAB PO SCH (09:59)
[2020-04-03] MEDS: CHOLECALCIFEROL (VITD3) 2,000 UNIT CAP/TAB PO SCH (09:59)
[2020-04-03] MEDS: cefTRIAXone 1GM/50ML D5W 50 ML IV SCH (09:59)
[2020-04-03] MEDS: ASCORBIC ACID 500 MG TAB PO SCH (09:59)
[2020-04-03] MEDS: LACTULOSE 20Gm/30ML SOLN PO SCH ×2 (09:59→21:47)
[2020-04-03] MEDS: SPIRONOLACTONE 25 MG TAB PO SCH (10:00)
[2020-04-03] MEDS: carBAMazepine 200 MG TAB PO SCH ×2 (10:00→21:47)
[2020-04-03] MEDS: DexAMETHasone SOD PHOS 10MG/1ML VIAL INJ IV SCH (10:00)
[2020-04-03] MEDS: AZITHROMYCIN 500MG/ 250ML 250 ML IV SCH (11:22)
[2020-04-03 12:30] VITALS: BP 120/71
[2020-04-03 16:40] VITALS: BP 109/74
[2020-04-03 22:02] VITALS: BP 123/79
[2020-04-04 05:28] VITALS: BP 100/61
[2020-04-04] MEDS: HYDROcodone-ACET 5/325MG TAB PO PRN (05:30)
[2020-04-04 08:41] VITALS: BP 124/88
[2020-04-04] MEDS: cefTRIAXone 1GM/50ML D5W 50 ML IV SCH (08:43)
[2020-04-04] MEDS: ASCORBIC ACID 500 MG TAB PO SCH (08:43)
[2020-04-04] MEDS: DexAMETHasone SOD PHOS 10MG/1ML VIAL INJ IV SCH (08:43)
[2020-04-04] MEDS: carBAMazepine 200 MG TAB PO SCH (08:43)
[2020-04-04] MEDS: LACTULOSE 20Gm/30ML SOLN PO SCH (08:43)
[2020-04-04] MEDS: ZINC SULFATE 220mg CAP or TAB PO SCH (08:44)
[2020-04-04] MEDS: CHOLECALCIFEROL (VITD3) 2,000 UNIT CAP/TAB PO SCH (08:44)
[2020-04-04] MEDS: AZITHROMYCIN 500MG/ 250ML 250 ML IV SCH (10:00)
[2020-04-04 11:33] VITALS: BP 124/88
== END 2020-04-04 13:04 | disposition home or self-care (01) | DRG 280 ==
LOC: ER 14:26 → TELE 14:27 → TELE-WESTW 03-30 16:05
PROVIDERS: ADMIT Nurse Practitioner Acute Care; ATTEND Family Medicine
PROC: 30233R1 Transfusion of Nonautologous Platelets into Peripheral Vein, Percutaneous Approach (ICD-10-PCS; principal; 2020-03-30)
DX: K70.31 Alcoholic cirrhosis of liver with ascites (principal); K72.90 Hepatic failure, unspecified without coma; U07.1 COVID-19; J12.82 Pneumonia due to coronavirus disease 2019; K76.6 Portal hypertension; E44.0 Moderate protein-calorie malnutrition; G50.0 Trigeminal neuralgia; I11.0 Hypertensive heart disease with heart failure; I50.9 Heart failure, unspecified; D69.6 Thrombocytopenia, unspecified; D63.8 Anemia in other chronic diseases classified elsewhere; E66.9 Obesity, unspecified; I67.2 Cerebral atherosclerosis; Z90.49 Acquired absence of other specified parts of digestive tract; Z79.899 Other long term (current) drug therapy; Z82.49 Family history of ischemic heart disease and other diseases of the circulatory system; Z68.37 Body mass index [BMI] 37.0-37.9, adult
CPT/HCPCS: 36415; 70450; 71045; 71250; 71275; 74176; 80048; 80053; 82140; 83880; 84484; 85007; 85025; 85027; 85379; 85610; 85730; 86704; 86706; 86708; 86803; 86850; 86900; 86901; 87340; 87426; 93005; 93970; 99291; G0378; J0696; J1100; J2405

== ENCOUNTER 2020-04-13 09:50 | Inpatient (IN) | payer MEDICAID, MEDICARE ==
[~2020-04-13] VITALS: Ht 165.1 cm; Wt 108.0 kg
[~2020-04-13 09:50] MED LIST changes: +[UNRECOGNIZED DRUG - CODE] PO
[2020-04-13 10:37] LABS: Urine WBC None Seen /hpf (0 - 3)
[2020-04-13 10:42] LABS: White Blood Cell 2.5 10^3/uL (4.4-10.8)
[2020-04-13 10:44] LABS: Hematocrit 29.1 % (41.0-53.0); Hemoglobin 9.6 g/dL (13.5-17.5); Mean Corpuscular Hemoglobin 30.9 pg (28.0-32.0); Mean Corpuscular Hgb Conc. 33.1 g/dL (32.0-36.0); Mean Corpuscular Volume 93.5 fL (80.0-100.0); Red Blood Cells 3.11 10^6/uL (4.5-5.90)
[2020-04-13 10:50] LABS: Urine Bacteria NONE SEEN /hpf (None Seen); Urine Blood Negative /uL (Negative); Urine Specific Gravity 1.006 (1.001-1.035)
[2020-04-13 10:53] LABS: Red Cell Distribution Width 21.7 % (11.8-14.3)
[2020-04-13 10:54] LABS: Band Neutrophils % (manual) 0; Blast Cells 0; Metamyelocytes % 0; Myelocytes % 0; Promyelocytes % 0; Reactive Lymphocytes 0
[2020-04-13 11:06] LABS: Basophils % (manual) 1 (0.0-2.0); Eosinophils % (manual) 1 (0-7); Lymphocytes % (manual) 22 (10.0-50.0); Monocytes % (manual) 13 (0-12)
[2020-04-13 11:08] LABS: Albumin 1.9 g/dL (3.4-5.0); Calcium 7.2 mg/dL (8.5-10.1); Potassium 3.7 mmol/L (3.5-5.1)
[2020-04-13 11:11] LABS: Bilirubin, Total 0.9 mg/dL (0.2-1.0); Total Protein 5.4 g/dL (6.4-8.2)
[2020-04-13] MEDS ORDERED: NITROGLYCERIN 0.4 MG SL TAB SL PRN (12:30)
[2020-04-13] MEDS ORDERED: ONDANSETRON HCL 4 MG/2 ML VIAL IV PRN (12:30)
[2020-04-13] MEDS ORDERED: MORPHINE SULFATE INJECTION 2 MG/ML SYRG IV PRN (12:30)
[2020-04-13] MEDS ORDERED: ACETAMINOPHEN 500 MG TAB PO PRN (12:30)
[2020-04-13] MEDS: cefTRIAXone 1GM/50ML D5W 50 ML IV SCH (13:28)
[2020-04-13] MEDS: MORPHINE SULFATE INJECTION 2 MG/ML SYRG IV PRN (13:42)
[2020-04-13] MEDS: GABAPENTIN 300 MG CAP PO SCH ×2 (14:11→21:33)
[2020-04-13 16:41] VITALS: BP 139/77
[2020-04-13] MEDS: LACTULOSE 20Gm/30ML SOLN PO SCH (17:33)
[2020-04-13 20:00] VITALS: BP 107/76
[2020-04-13] MEDS: HYDROcodone-ACET 5/325MG TAB PO PRN (20:07)
[2020-04-13 21:53] VITALS: BP 112/67
[2020-04-13 22:00] VITALS: BP 112/67
[2020-04-13 22:09] VITALS: BP 112/67
[2020-04-14] VITALS (8 sets, daily range): BP systolic 100–135; BP diastolic 54–84
[2020-04-14] MEDS: MORPHINE SULFATE INJECTION 2 MG/ML SYRG IV PRN (04:10)
[2020-04-14 05:36] LABS: Hematocrit 28.8 % (41.0-53.0)
[2020-04-14 05:40] LABS: Hemoglobin 9.5 g/dL (13.5-17.5); Mean Corpuscular Hemoglobin 30.9 pg (28.0-32.0); Mean Corpuscular Volume 93.4 fL (80.0-100.0); Red Blood Cells 3.08 10^6/uL (4.5-5.90)
[2020-04-14 05:50] LABS: INR 1.22 (0.9-1.15); Partial Thromboplastin Time 37.3 sec (23.0-31.2)
[2020-04-14] MEDS: GABAPENTIN 300 MG CAP PO SCH ×3 (05:50→21:46)
[2020-04-14] MEDS: LACTULOSE 20Gm/30ML SOLN PO SCH ×5 (05:50→18:09)
[2020-04-14 05:55] LABS: Albumin 1.8 g/dL (3.4-5.0); Calcium 7.2 mg/dL (8.5-10.1); Potassium 4.3 mmol/L (3.5-5.1)
[2020-04-14 05:59] LABS: BUN/Creatinine Ratio 18.9
[2020-04-14 07:01] LABS: Red Cell Distribution Width 22.1 % (11.8-14.3); White Blood Cell 1.7 10^3/uL (4.4-10.8)
[2020-04-14 07:03] LABS: Blast Cells 0; Metamyelocytes % 0; Myelocytes % 0; Promyelocytes % 0; Reactive Lymphocytes 0
[2020-04-14 08:08] LABS: Band Neutrophils % (manual) 1; Basophils % (manual) 1 (0.0-2.0); Eosinophils % (manual) 11 (0-7); Lymphocytes % (manual) 10 (10.0-50.0); Monocytes % (manual) 19 (0-12)
[2020-04-14] MEDS ORDERED: CARBAMAZEPINE 100 MG PO SCH (10:00)
[2020-04-14] MEDS ORDERED: FUROSEMIDE 40 MG/4 ML VIAL IV SCH (10:00)
[2020-04-14] MEDS: cefTRIAXone 1GM/50ML D5W 50 ML IV SCH (10:21)
[2020-04-14] MEDS: SPIRONOLACTONE 25 MG TAB PO SCH ×2 (10:28→13:04)
[2020-04-14] MEDS: PANTOPRAZOLE 40 MG TAB PO SCH (10:28)
[2020-04-14] MEDS ORDERED: carBAMazepine 200 MG TAB PO ONE (11:00)
[2020-04-14] MEDS: HYDROcodone-ACET 5/325MG TAB PO PRN (19:43)
[2020-04-14] MEDS: carBAMazepine 200 MG TAB PO SCH (21:46)
[2020-04-15 05:10] VITALS: BP 101/65
[2020-04-15] MEDS: LACTULOSE 20Gm/30ML SOLN PO SCH ×4 (05:45→19:15)
[2020-04-15] MEDS: GABAPENTIN 300 MG CAP PO SCH ×3 (05:45→21:14)
[2020-04-15 06:36] LABS: Basophils # (auto) 0 10 ^3/uL (0-0.2); Eosinophils # (auto) 0.1 10 ^3/uL (0-0.8); Hematocrit 27.2 % (41.0-53.0); Hemoglobin 9.1 g/dL (13.5-17.5); Lymphocytes # (auto) 0.5 10 ^3/uL (0.4-5.4); Mean Corpuscular Hgb Conc. 33.5 g/dL (32.0-36.0); Monocytes # (auto) 0.3 10 ^3/uL (0-1.3); Neutrophils # (auto) 0.8 10 ^3/uL (1.6-8.6)
[2020-04-15 06:39] LABS: Basophils % (auto) 1.2 % (0.0-2.0); Eosinophils % (auto) 4.5 % (0.0-7.0); Lymphocytes % (auto) 28.9 % (10.0-50.0); Mean Corpuscular Hemoglobin 31.3 pg (28.0-32.0); Mean Corpuscular Volume 93.5 fL (80.0-100.0); Monocytes % (auto) 17.8 % (0.0-12.0); Neutrophils % (auto) 47.6 % (37.0-80.0); Nucleated Red Blood Cells % 0.4 %; Red Blood Cells 2.91 10^6/uL (4.5-5.90)
[2020-04-15 06:54] LABS: White Blood Cell 1.6 10^3/uL (4.4-10.8)
[2020-04-15 07:08] LABS: Calcium 7.1 mg/dL (8.5-10.1)
[2020-04-15 07:11] LABS: BUN/Creatinine Ratio 19.5
[2020-04-15 08:39] VITALS: BP 105/73
[2020-04-15] MEDS ORDERED: FUROSEMIDE 40 MG TAB PO SCH (10:00)
[2020-04-15] MEDS ORDERED: FUROSEMIDE 20 MG/2 ML VIAL IV ONE (11:15)
[2020-04-15 12:56] VITALS: BP 109/65
[2020-04-15] MEDS: SPIRONOLACTONE 25 MG TAB PO SCH (15:20)
[2020-04-15] MEDS: carBAMazepine 200 MG TAB PO SCH ×2 (15:20→21:14)
[2020-04-15] MEDS: cefTRIAXone 1GM/50ML D5W 50 ML IV SCH (15:20)
[2020-04-15] MEDS: PANTOPRAZOLE 40 MG TAB PO SCH (15:20)
[2020-04-15 17:00] VITALS: BP 108/63
[2020-04-15] MEDS: HYDROcodone-ACET 5/325MG TAB PO PRN (20:39)
[2020-04-15 22:40] VITALS: BP 101/61
[2020-04-16] MEDS: HYDROcodone-ACET 5/325MG TAB PO PRN (04:47)
[2020-04-16 05:20] VITALS: BP 112/64
[2020-04-16] MEDS: GABAPENTIN 300 MG CAP PO SCH (06:02)
[2020-04-16] MEDS: LACTULOSE 20Gm/30ML SOLN PO SCH ×3 (06:02→11:48)
[2020-04-16 06:04] LABS: Calcium 7.3 mg/dL (8.5-10.1); Potassium 3.8 mmol/L (3.5-5.1)
[2020-04-16 06:07] LABS: BUN/Creatinine Ratio 17.9
[2020-04-16] MEDS: cefTRIAXone 1GM/50ML D5W 50 ML IV SCH (08:46)
[2020-04-16] MEDS: PANTOPRAZOLE 40 MG TAB PO SCH (08:47)
[2020-04-16] MEDS: carBAMazepine 200 MG TAB PO SCH (08:47)
[2020-04-16] MEDS: SPIRONOLACTONE 25 MG TAB PO SCH (08:47)
[2020-04-16 08:55] VITALS: BP 100/61
[2020-04-16] MEDS ORDERED: FUROSEMIDE 20 MG/2 ML VIAL IV SCH (10:00)
[2020-04-16 12:40] VITALS: BP 100/61
[2020-06-25] MEDS ORDERED: AMOX500T86 PO (12:06)
[2020-06-25] MEDS ORDERED: LACT10SO3 PO (12:17)
[2020-06-25] MEDS ORDERED: RIFA550T PO (12:17)
== END 2020-04-16 13:30 | disposition home or self-care (01) | DRG 432 ==
LOC: ER 09:50 → TELE 09:51 → TELE-CENTR 14:22 → TELE-EAST 14:46 → TELE-CENTR 17:32 → CENTRAL 04-14 14:16
PROVIDERS: ADMIT Nurse Practitioner Acute Care; ATTEND Internal Medicine
PROC: 0W9G3ZZ Drainage of Peritoneal Cavity, Percutaneous Approach (ICD-10-PCS; principal; 2020-04-14)
DX: K74.60 Unspecified cirrhosis of liver (principal); K65.9 Peritonitis, unspecified; R18.8 Other ascites; D61.818 Other pancytopenia; E44.0 Moderate protein-calorie malnutrition; Z68.41 Body mass index [BMI] 40.0-44.9, adult; E66.9 Obesity, unspecified; G50.0 Trigeminal neuralgia; D63.8 Anemia in other chronic diseases classified elsewhere; D72.819 Decreased white blood cell count, unspecified; D73.1 Hypersplenism; Z20.822 Contact with and (suspected) exposure to COVID-19; I10 Essential (primary) hypertension; Z82.49 Family history of ischemic heart disease and other diseases of the circulatory system; E87.70 Fluid overload, unspecified; Z90.49 Acquired absence of other specified parts of digestive tract
CPT/HCPCS: 10022; 36415; 49083; 74176; 76700; 76942; 80048; 80053; 81001; 83605; 83880; 83986; 85007; 85025; 85027; 85610; 85730; 86850; 86900; 86901; 87040; 87081; 87205; 87426; 89051; 93005; 96365; 96375; G0378; J0696; J2405

== ENCOUNTER 2020-06-14 20:46 | Inpatient (IN) | payer MEDICARE, MEDICAID ==
[~2020-06-14] VITALS: Ht 165.1 cm; Wt 100.0 kg
[2020-06-14 22:08] LABS: Urine Bacteria NONE SEEN /hpf (None Seen); Urine Blood Negative /uL (Negative); Urine Specific Gravity 1.014 (1.001-1.035); Urine WBC <1 /hpf (0 - 3)
[2020-06-14 22:11] LABS: Eosinophils # (auto) 0 10 ^3/uL (0-0.8); Hemoglobin 10.3 g/dL (13.5-17.5); Lymphocytes # (auto) 0.2 10 ^3/uL (0.4-5.4); Monocytes # (auto) 0.4 10 ^3/uL (0-1.3); Neutrophils # (auto) 2.4 10 ^3/uL (1.6-8.6); Red Cell Distribution Width 19.5 % (11.8-14.3)
[2020-06-14 22:13] LABS: Basophils # (auto) 0.1 10 ^3/uL (0-0.2); Basophils % (auto) 1.6 % (0.0-2.0); Eosinophils % (auto) 0.9 % (0.0-7.0); Hematocrit 31.4 % (41.0-53.0); Lymphocytes % (auto) 7.7 % (10.0-50.0); Mean Corpuscular Hemoglobin 31.2 pg (28.0-32.0); Mean Corpuscular Hgb Conc. 32.8 g/dL (32.0-36.0); Mean Corpuscular Volume 95.1 fL (80.0-100.0); Monocytes % (auto) 13.6 % (0.0-12.0); Neutrophils % (auto) 76.2 % (37.0-80.0); Nucleated Red Blood Cells % 0.3 %; White Blood Cell 3.2 10^3/uL (4.4-10.8)
[2020-06-14 22:21] LABS: Alcohol, Urine < 3.0 mg/dL (0-10); Amphetamine Screen, Urine NEGATIVE (NEGATIVE); Barbiturate Scree,Urine NEGATIVE (NEGATIVE); Benzodiazephine Screen, Urine NEGATIVE (NEGATIVE); Cannabinoid Screen, Urine NEGATIVE (NEGATIVE); Cocaine Screen, Urine NEGATIVE (NEGATIVE); Opiate Scree,Urine NEGATIVE (NEGATIVE); Phencyclidine Screen, Urine NEGATIVE (NEGATIVE)
[2020-06-14 22:22] LABS: Albumin 2.1 g/dL (3.4-5.0); Anion Gap 11 (5-15); Blood Alcohol < 3.0 mg/dL (0-5); Blood Urea Nitrogen 15 mg/dL (7-18); Calcium 7.2 mg/dL (8.5-10.1); Carbon Dioxide 14 mmol/L (21-32); Chloride 111 mmol/L (98-107); Glucose 97 mg/dL (74-106); Lipase 173 U/L (73-393); Magnesium 2.2 mg/dL (1.6-2.6); Potassium 4.6 mmol/L (3.5-5.1); Sodium 136 mmol/L (136-145)
[2020-06-14 22:25] LABS: Lactic Acid w/Reflex 2.8 mmol/L (0.4-2.0)
[2020-06-14 22:26] LABS: Alanine Aminotransferase 32 U/L (16-61); Alkaline Phosphatase 85 U/L (45-117); Aspartate Aminotransferase 45 U/L (15-37); Bilirubin, Total 1.2 mg/dL (0.2-1.0); GFR African American 109 mL/min; GFR Non-African American 90 mL/min; Total Protein 5.6 g/dL (6.4-8.2)
[2020-06-14 22:54] LABS: INR 1.32 (0.9-1.15); Partial Thromboplastin Time 34.9 sec (23.0-31.2)
[2020-06-14] MEDS ORDERED: LACTULOSE 20Gm/30ML SOLN PO ONE (23:00)
[2020-06-14 23:03] LABS: Platelet Count (auto) 220 10^3/uL (140-450)
[2020-06-14] MEDS ORDERED: IOHEXOL 300 MG/ML 100ML BOTTLE IJ ONE (23:19)
[2020-06-15] VITALS (17 sets, daily range): BP systolic 106–139; BP diastolic 62–83
[2020-06-15] MEDS ORDERED: MORPHINE SULF INJ 2 MG/ML SYRINGE 1ML IV PRN (02:30)
[2020-06-15] MEDS ORDERED: NITROGLYCERIN 0.4 MG SL TAB SL PRN (02:30)
[2020-06-15] MEDS ORDERED: LACTULOSE 20Gm/30ML SOLN ONE ×3 (02:53→02:55)
[2020-06-15] MEDS ORDERED: LACTULOSE 10g/15ml SOLN PR ONE ×2 (04:00)
[2020-06-15] MEDS: LACTULOSE 10g/15ml SOLN PR SCH ×4 (09:45→18:11)
[2020-06-15] MEDS: FUROSEMIDE 40 MG TAB PO SCH (10:00)
[2020-06-15] MEDS: SPIRONOLACTONE 25 MG TAB PO SCH (10:00)
[2020-06-15] MEDS: ENALAPRIL MALEATE 2.5 MG TAB PO SCH (10:00)
[2020-06-15] MEDS: rifAXIMin 550 MG TAB PO SCH ×2 (10:00→22:00)
[2020-06-15] MEDS: PANTOPRAZOLE 40 MG TAB PO SCH (10:00)
[2020-06-16] VITALS (76 sets, daily range): BP systolic 95–131; BP diastolic 57–88
[2020-06-16] MEDS: LACTULOSE 10g/15ml SOLN PR SCH ×2 (00:03→06:31)
[2020-06-16 05:11] LABS: Basophils # (auto) 0 10 ^3/uL (0-0.2); Eosinophils # (auto) 0.1 10 ^3/uL (0-0.8); Eosinophils % (auto) 1.6 % (0.0-7.0); Hemoglobin 9.6 g/dL (13.5-17.5); Lymphocytes # (auto) 0.5 10 ^3/uL (0.4-5.4); Monocytes # (auto) 0.5 10 ^3/uL (0-1.3); Neutrophils # (auto) 2.9 10 ^3/uL (1.6-8.6); Nucleated Red Blood Cells % 0.1 %
[2020-06-16 05:14] LABS: Basophils % (auto) 0.4 % (0.0-2.0); Hematocrit 28.1 % (41.0-53.0); Mean Corpuscular Hgb Conc. 34.2 g/dL (32.0-36.0); Mean Corpuscular Volume 99.5 fL (80.0-100.0); Monocytes % (auto) 12.8 % (0.0-12.0); Neutrophils % (auto) 72.2 % (37.0-80.0); Red Blood Cells 2.83 10^6/uL (4.5-5.90); Red Cell Distribution Width 19.4 % (11.8-14.3); White Blood Cell 4.1 10^3/uL (4.4-10.8)
[2020-06-16 05:26] LABS: INR 1.31 (0.9-1.15)
[2020-06-16 05:28] LABS: Calcium 7.5 mg/dL (8.5-10.1); Magnesium 2.2 mg/dL (1.6-2.6)
[2020-06-16 05:32] LABS: BUN/Creatinine Ratio 19.5; Bilirubin, Total 1.9 mg/dL (0.2-1.0)
[2020-06-16 06:20] LABS: Platelet Count (auto) 186 10^3/uL (140-450)
[2020-06-16] MEDS: PANTOPRAZOLE 40 MG TAB PO SCH (09:31)
[2020-06-16] MEDS: SPIRONOLACTONE 25 MG TAB PO SCH (09:31)
[2020-06-16] MEDS: rifAXIMin 550 MG TAB PO SCH ×2 (09:31→23:17)
[2020-06-16] MEDS: ENALAPRIL MALEATE 2.5 MG TAB PO SCH (09:31)
[2020-06-16] MEDS: FUROSEMIDE 40 MG TAB PO SCH (09:32)
[2020-06-16] MEDS: LACTULOSE 20Gm/30ML SOLN PO SCH ×3 (13:26→23:17)
[2020-06-16] MEDS ORDERED: FOLIC ACID 1 MG, MULTIPLE VITAMIN 10 ML, MAGNESIUM SULF SDV 50% 8 MEQ, THIAMINE INJ 100... INJ ONE ×5 (14:15)
[2020-06-17] MEDS: chlordiazePOXIDE HCL 25 MG CAP PO PRN ×2 (03:27→23:35)
[2020-06-17 05:45] VITALS: BP 119/74
[2020-06-17] MEDS: LACTULOSE 20Gm/30ML SOLN PO SCH ×4 (05:59→23:35)
[2020-06-17 06:10] LABS: INR 1.29 (0.9-1.15)
[2020-06-17 06:11] LABS: Calcium 7.5 mg/dL (8.5-10.1); Magnesium 2.3 mg/dL (1.6-2.6); Potassium 3.4 mmol/L (3.5-5.1)
[2020-06-17 07:33] LABS: Basophils # (auto) 0 10 ^3/uL (0-0.2); Lymphocytes # (auto) 0.6 10 ^3/uL (0.4-5.4); Monocytes # (auto) 0.5 10 ^3/uL (0-1.3); Neutrophils # (auto) 1.8 10 ^3/uL (1.6-8.6)
[2020-06-17 07:35] LABS: Basophils % (auto) 0.9 % (0.0-2.0); Eosinophils # (auto) 0.1 10 ^3/uL (0-0.8); Eosinophils % (auto) 2.2 % (0.0-7.0); Hemoglobin 10.8 g/dL (13.5-17.5); Lymphocytes % (auto) 21.2 % (10.0-50.0); Mean Corpuscular Hgb Conc. 33.6 g/dL (32.0-36.0); Mean Corpuscular Volume 92.1 fL (80.0-100.0); Monocytes % (auto) 15.9 % (0.0-12.0); Neutrophils % (auto) 59.8 % (37.0-80.0); Nucleated Red Blood Cells % 0.3 %; Red Blood Cells 3.47 10^6/uL (4.5-5.90); Red Cell Distribution Width 19.6 % (11.8-14.3); White Blood Cell 2.9 10^3/uL (4.4-10.8)
[2020-06-17 09:00] VITALS: BP 124/76
[2020-06-17] MEDS ORDERED: POTASSIUM CHL 20 Meq TABLET PO ONE (10:15)
[2020-06-17] MEDS: rifAXIMin 550 MG TAB PO SCH ×2 (10:33→22:08)
[2020-06-17] MEDS: SPIRONOLACTONE 25 MG TAB PO SCH (10:34)
[2020-06-17] MEDS: ENALAPRIL MALEATE 2.5 MG TAB PO SCH (10:35)
[2020-06-17] MEDS: FUROSEMIDE 40 MG TAB PO SCH (10:36)
[2020-06-17] MEDS: PANTOPRAZOLE 40 MG TAB PO SCH (10:37)
[2020-06-17] MEDS ORDERED: FOLIC ACID 1 MG, MULTIPLE VITAMIN 10 ML, MAGNESIUM SULF SDV 50% 8 MEQ, THIAMINE INJ 100... INJ SCH ×5 (12:00)
[2020-06-17] MEDS ORDERED: THIAMINE HCL 100 MG TAB PO ONE (12:30)
[2020-06-17] MEDS ORDERED: FOLIC ACID 1 MG TAB PO ONE (12:30)
[2020-06-17 13:00] VITALS: BP 135/78
[2020-06-17 17:00] VITALS: BP 98/124
[2020-06-17 22:18] VITALS: BP 133/78
[2020-06-18 04:42] VITALS: BP 109/74
[2020-06-18] MEDS: LACTULOSE 20Gm/30ML SOLN PO SCH ×3 (05:35→19:51)
[2020-06-18 06:13] LABS: Magnesium 2.2 mg/dL (1.6-2.6); Potassium 3.6 mmol/L (3.5-5.1)
[2020-06-18 06:18] LABS: Bilirubin, Total 2.2 mg/dL (0.2-1.0)
[2020-06-18 09:05] VITALS: BP 108/71
[2020-06-18] MEDS: THIAMINE HCL 100 MG TAB PO SCH (09:57)
[2020-06-18] MEDS: MULTIPLE VITAMINS W/ MINERALS TAB PO SCH (09:58)
[2020-06-18] MEDS: PANTOPRAZOLE 40 MG TAB PO SCH (09:58)
[2020-06-18] MEDS: ENALAPRIL MALEATE 2.5 MG TAB PO SCH (09:58)
[2020-06-18] MEDS: rifAXIMin 550 MG TAB PO SCH ×2 (09:58→21:44)
[2020-06-18] MEDS: FUROSEMIDE 40 MG TAB PO SCH (09:58)
[2020-06-18] MEDS: SPIRONOLACTONE 25 MG TAB PO SCH (09:59)
[2020-06-18] MEDS: FOLIC ACID 1 MG TAB PO SCH (09:59)
[2020-06-18] MEDS ORDERED: HYDROcodone-ACET 5/325MG TAB PO ONE (10:15)
[2020-06-18 13:36] VITALS: BP 103/66
[2020-06-18] MEDS: ALUM & MAG HYDROX-SIMETH LIQ(MAALOX) 30 ML PO PRN (16:44)
[2020-06-18 17:00] VITALS: BP 106/70
[2020-06-18 22:00] VITALS: BP 100/53
[2020-06-19] MEDS: LACTULOSE 20Gm/30ML SOLN PO SCH ×4 (00:02→18:00)
[2020-06-19] MEDS: ALUM & MAG HYDROX-SIMETH LIQ(MAALOX) 30 ML PO PRN ×2 (04:47→12:28)
[2020-06-19 05:00] VITALS: BP 121/78
[2020-06-19 06:49] LABS: Basophils # (auto) 0 10 ^3/uL (0-0.2); Eosinophils # (auto) 0 10 ^3/uL (0-0.8); Lymphocytes # (auto) 0.4 10 ^3/uL (0.4-5.4); Monocytes # (auto) 0.5 10 ^3/uL (0-1.3); Neutrophils # (auto) 3.1 10 ^3/uL (1.6-8.6)
[2020-06-19 06:51] LABS: Basophils % (auto) 0.4 % (0.0-2.0); Eosinophils % (auto) 0.6 % (0.0-7.0); Hematocrit 35.3 % (41.0-53.0); Hemoglobin 11.9 g/dL (13.5-17.5); Lymphocytes % (auto) 10.5 % (10.0-50.0); Mean Corpuscular Hemoglobin 31.1 pg (28.0-32.0); Mean Corpuscular Hgb Conc. 33.7 g/dL (32.0-36.0); Mean Corpuscular Volume 92.2 fL (80.0-100.0); Monocytes % (auto) 11.7 % (0.0-12.0); Neutrophils % (auto) 76.8 % (37.0-80.0); Nucleated Red Blood Cells % 0.1 %; Red Blood Cells 3.82 10^6/uL (4.5-5.90); Red Cell Distribution Width 19.2 % (11.8-14.3)
[2020-06-19 07:14] LABS: Potassium 3.7 mmol/L (3.5-5.1)
[2020-06-19 07:18] LABS: Albumin 2.4 g/dL (3.4-5.0); BUN/Creatinine Ratio 12.5
[2020-06-19 07:21] LABS: Bilirubin, Total 2.6 mg/dL (0.2-1.0); Total Protein 6.3 g/dL (6.4-8.2)
[2020-06-19 09:00] VITALS: BP 118/70
[2020-06-19] MEDS: Pro-Stat SF 30ml Vanilla PO SCH (10:00)
[2020-06-19] MEDS ORDERED: ONDANSETRON HCL 4 MG/2 ML VIAL IV PRN (10:15)
[2020-06-19] MEDS ORDERED: ONDANSETRON HCL 4 MG/2 ML VIAL ONE (10:21)
[2020-06-19] MEDS: THIAMINE HCL 100 MG TAB PO SCH (10:25)
[2020-06-19] MEDS: rifAXIMin 550 MG TAB PO SCH ×2 (10:26→20:58)
[2020-06-19] MEDS: PANTOPRAZOLE 40 MG TAB PO SCH (10:26)
[2020-06-19] MEDS: SPIRONOLACTONE 25 MG TAB PO SCH (10:26)
[2020-06-19] MEDS: MULTIPLE VITAMINS W/ MINERALS TAB PO SCH (10:26)
[2020-06-19] MEDS: FUROSEMIDE 40 MG TAB PO SCH (10:27)
[2020-06-19] MEDS: FOLIC ACID 1 MG TAB PO SCH (10:27)
[2020-06-19] MEDS: ENALAPRIL MALEATE 2.5 MG TAB PO SCH (10:27)
[2020-06-19] MEDS: Ensure Pudding Vanilla 4 oz Cup PO SCH ×2 (12:00→18:00)
[2020-06-19 12:39] VITALS: BP 128/86
[2020-06-19] MEDS: ONDANSETRON HCL 4 MG/2 ML VIAL IV PRN ×2 (15:41→20:59)
[2020-06-19 17:00] VITALS: BP 125/80
[2020-06-19] MEDS: chlordiazePOXIDE HCL 25 MG CAP PO PRN (20:58)
[2020-06-19 21:47] VITALS: BP 126/78
[2020-06-20] MEDS: LACTULOSE 20Gm/30ML SOLN PO SCH ×5 (02:09→18:00)
[2020-06-20] MEDS: ONDANSETRON HCL 4 MG/2 ML VIAL IV PRN ×3 (03:01→18:58)
[2020-06-20] MEDS: ALUM & MAG HYDROX-SIMETH LIQ(MAALOX) 30 ML PO PRN (03:31)
[2020-06-20 05:00] VITALS: BP 120/76
[2020-06-20 06:36] LABS: Basophils # (auto) 0 10 ^3/uL (0-0.2); Basophils % (auto) 0.1 % (0.0-2.0); Hemoglobin 12.7 g/dL (13.5-17.5); Lymphocytes # (auto) 0.9 10 ^3/uL (0.4-5.4); Lymphocytes % (auto) 9.1 % (10.0-50.0); Monocytes # (auto) 1.1 10 ^3/uL (0-1.3); Neutrophils # (auto) 7.6 10 ^3/uL (1.6-8.6); Nucleated Red Blood Cells % 0.1 %; White Blood Cell 9.6 10^3/uL (4.4-10.8)
[2020-06-20 06:39] LABS: Eosinophils # (auto) 0 10 ^3/uL (0-0.8); Eosinophils % (auto) 0.3 % (0.0-7.0); Hematocrit 37.3 % (41.0-53.0); Mean Corpuscular Volume 91.3 fL (80.0-100.0); Monocytes % (auto) 11.6 % (0.0-12.0); Neutrophils % (auto) 78.9 % (37.0-80.0); Red Blood Cells 4.08 10^6/uL (4.5-5.90); Red Cell Distribution Width 19.5 % (11.8-14.3)
[2020-06-20 06:47] LABS: Albumin 2.6 g/dL (3.4-5.0); Calcium 8.8 mg/dL (8.5-10.1); Potassium 3.6 mmol/L (3.5-5.1)
[2020-06-20 06:50] LABS: BUN/Creatinine Ratio 14.1
[2020-06-20 06:52] LABS: Bilirubin, Total 2.8 mg/dL (0.2-1.0); Total Protein 6.6 g/dL (6.4-8.2)
[2020-06-20] MEDS: Ensure Pudding Vanilla 4 oz Cup PO SCH ×3 (08:00→18:00)
[2020-06-20 09:00] VITALS: BP 138/86
[2020-06-20] MEDS ORDERED: ALUM & MAG HYDROX-SIMETH LIQ(MAALOX) 30 ML GT PRN (09:30)
[2020-06-20] MEDS: Pro-Stat SF 30ml Vanilla PO SCH (10:00)
[2020-06-20] MEDS: PROMETHAZINE HCL 25 MG/ML 1ML IV PRN ×2 (10:16→21:13)
[2020-06-20] MEDS: THIAMINE HCL 100 MG TAB PO SCH (12:28)
[2020-06-20] MEDS: FOLIC ACID 1 MG TAB PO SCH (12:28)
[2020-06-20] MEDS: SPIRONOLACTONE 25 MG TAB PO SCH (12:29)
[2020-06-20] MEDS: FUROSEMIDE 40 MG TAB PO SCH (12:29)
[2020-06-20] MEDS: MULTIPLE VITAMINS W/ MINERALS TAB PO SCH (12:29)
[2020-06-20] MEDS: ENALAPRIL MALEATE 2.5 MG TAB PO SCH (12:30)
[2020-06-20] MEDS: PANTOPRAZOLE 40 MG TAB PO SCH (12:30)
[2020-06-20] MEDS: rifAXIMin 550 MG TAB PO SCH ×2 (12:30→21:12)
[2020-06-20 13:00] VITALS: BP 124/81
[2020-06-20] MEDS: LACTULOSE 10g/15ml SOLN PR SCH ×2 (13:27→18:57)
[2020-06-20 21:56] VITALS: BP 114/72
[2020-06-21] MEDS: LACTULOSE 10g/15ml SOLN PR SCH (00:30)
[2020-06-21] MEDS: LACTULOSE 20Gm/30ML SOLN PO SCH ×7 (02:24→22:09)
[2020-06-21] MEDS: ONDANSETRON HCL 4 MG/2 ML VIAL IV PRN (02:26)
[2020-06-21 05:00] VITALS: BP 127/70
[2020-06-21 06:40] LABS: Basophils # (auto) 0 10 ^3/uL (0-0.2); Eosinophils # (auto) 0.1 10 ^3/uL (0-0.8); Eosinophils % (auto) 1.2 % (0.0-7.0); Hemoglobin 11.6 g/dL (13.5-17.5); Lymphocytes # (auto) 1.3 10 ^3/uL (0.4-5.4); Nucleated Red Blood Cells % 0.2 %
[2020-06-21 06:42] LABS: Basophils % (auto) 0.3 % (0.0-2.0); Hematocrit 34.3 % (41.0-53.0); Lymphocytes % (auto) 12.3 % (10.0-50.0); Mean Corpuscular Hemoglobin 31.4 pg (28.0-32.0); Mean Corpuscular Hgb Conc. 33.9 g/dL (32.0-36.0); Mean Corpuscular Volume 92.6 fL (80.0-100.0); Monocytes # (auto) 1.5 10 ^3/uL (0-1.3); Monocytes % (auto) 14.3 % (0.0-12.0); Neutrophils # (auto) 7.5 10 ^3/uL (1.6-8.6); Neutrophils % (auto) 71.9 % (37.0-80.0); Red Blood Cells 3.71 10^6/uL (4.5-5.90); Red Cell Distribution Width 19.8 % (11.8-14.3); White Blood Cell 10.4 10^3/uL (4.4-10.8)
[2020-06-21 07:12] LABS: BUN/Creatinine Ratio 18.7; Calcium 8.4 mg/dL (8.5-10.1); Potassium 3.4 mmol/L (3.5-5.1)
[2020-06-21] MEDS: Ensure Pudding Vanilla 4 oz Cup PO SCH ×3 (08:00→18:00)
[2020-06-21 09:00] VITALS: BP 101/65
[2020-06-21] MEDS: THIAMINE HCL 100 MG TAB PO SCH (10:00)
[2020-06-21] MEDS: FOLIC ACID 1 MG TAB PO SCH (10:00)
[2020-06-21] MEDS: Pro-Stat SF 30ml Vanilla PO SCH (10:00)
[2020-06-21] MEDS: PANTOPRAZOLE 40 MG TAB PO SCH (10:00)
[2020-06-21] MEDS: rifAXIMin 550 MG TAB PO SCH ×2 (10:00→22:09)
[2020-06-21] MEDS: MULTIPLE VITAMINS W/ MINERALS TAB PO SCH (10:00)
[2020-06-21] MEDS ORDERED: HALOPERIDOL LACTATE 5 MG/ML INJ VIAL IM PRN (11:30)
[2020-06-21] MEDS ORDERED: MORPHINE SULF INJ 2 MG/ML SYRINGE 1ML IV PRN (12:00)
[2020-06-21 13:00] VITALS: BP 111/62
[2020-06-21] MEDS ORDERED: POTASSIUM CHL 20MEQ/100ML 100 ML IV ONE (13:30)
[2020-06-21] MEDS: LORazepam 2MG/ML-1ML VIAL IV PRN ×2 (15:27→23:06)
[2020-06-21] MEDS: SODIUM CHLORIDE 0.9% 1,000 ML IV SCH (17:30)
[2020-06-21] MEDS ORDERED: LACTULOSE 20Gm/30ML SOLN PO ONE (20:00)
[2020-06-21] MEDS ORDERED: LACTULOSE 10g/15ml SOLN PR ONE (20:00)
[2020-06-22] MEDS: LACTULOSE 20Gm/30ML SOLN PO SCH ×9 (02:00→21:38)
[2020-06-22 02:50] VITALS: BP 114/78
[2020-06-22 06:28] LABS: Potassium 3.7 mmol/L (3.5-5.1)
[2020-06-22 06:33] LABS: Hemoglobin 11.2 g/dL (13.5-17.5); Red Blood Cells 3.55 10^6/uL (4.5-5.90)
[2020-06-22 06:35] LABS: Albumin 2.4 g/dL (3.4-5.0); BUN/Creatinine Ratio 20.4; Bilirubin, Total 2.4 mg/dL (0.2-1.0); Calcium 8.1 mg/dL (8.5-10.1); Magnesium 2.8 mg/dL (1.6-2.6); Mean Corpuscular Hemoglobin 31.5 pg (28.0-32.0); Mean Corpuscular Hgb Conc. 33.9 g/dL (32.0-36.0); Mean Corpuscular Volume 92.9 fL (80.0-100.0); Red Cell Distribution Width 19.9 % (11.8-14.3); White Blood Cell 7.1 10^3/uL (4.4-10.8)
[2020-06-22 06:56] LABS: Basophils % (manual) 0 (0.0-2.0); Blast Cells 0; Eosinophils % (manual) 0 (0-7); Metamyelocytes % 0; Myelocytes % 0; Promyelocytes % 0; Reactive Lymphocytes 0
[2020-06-22 07:40] LABS: Band Neutrophils % (manual) 1; Lymphocytes % (manual) 16 (10.0-50.0); Monocytes % (manual) 11 (0-12)
[2020-06-22] MEDS: Ensure Pudding Vanilla 4 oz Cup PO SCH ×3 (08:00→18:00)
[2020-06-22] MEDS: Pro-Stat SF 30ml Vanilla PO SCH (10:00)
[2020-06-22] MEDS: FOLIC ACID 1 MG TAB PO SCH (10:00)
[2020-06-22] MEDS: PANTOPRAZOLE 40 MG TAB PO SCH (10:00)
[2020-06-22] MEDS: rifAXIMin 550 MG TAB PO SCH ×2 (10:00→21:44)
[2020-06-22] MEDS: THIAMINE HCL 100 MG TAB PO SCH (10:00)
[2020-06-22] MEDS: MULTIPLE VITAMINS W/ MINERALS TAB PO SCH (10:00)
[2020-06-22] MEDS: LORazepam 2MG/ML-1ML VIAL IV PRN (11:13)
[2020-06-22 11:32] VITALS: BP 116/78
[2020-06-22] MEDS ORDERED: LORazepam 2MG/ML-1ML VIAL IV PRN (14:45)
[2020-06-22] MEDS: SODIUM CHLORIDE 0.9% 1,000 ML IV SCH ×2 (15:14→22:50)
[2020-06-22 22:00] VITALS: BP 120/69
[2020-06-23] MEDS: LACTULOSE 20Gm/30ML SOLN PO SCH ×6 (02:00→21:27)
[2020-06-23 05:00] VITALS: BP 103/55
[2020-06-23 05:47] LABS: Albumin 2.1 g/dL (3.4-5.0); BUN/Creatinine Ratio 18.5; Calcium 7.5 mg/dL (8.5-10.1); Potassium 3.4 mmol/L (3.5-5.1)
[2020-06-23 05:50] LABS: Bilirubin, Total 2.3 mg/dL (0.2-1.0); Total Protein 4.9 g/dL (6.4-8.2)
[2020-06-23] MEDS: Ensure Pudding Vanilla 4 oz Cup PO SCH ×3 (08:32→18:13)
[2020-06-23] MEDS: FOLIC ACID 1 MG TAB PO SCH (10:00)
[2020-06-23] MEDS: PANTOPRAZOLE 40 MG TAB PO SCH (10:00)
[2020-06-23] MEDS: MULTIPLE VITAMINS W/ MINERALS TAB PO SCH (10:00)
[2020-06-23] MEDS: Pro-Stat SF 30ml Vanilla PO SCH (10:00)
[2020-06-23] MEDS: THIAMINE HCL 100 MG TAB PO SCH (10:00)
[2020-06-23] MEDS: rifAXIMin 550 MG TAB PO SCH ×2 (10:00→21:27)
[2020-06-23] MEDS ORDERED: POTASSIUM EFFERVESENT TAB 25 MEQ PO ONE (10:45)
[2020-06-23] MEDS: carBAMazepine 200 MG/10 ML Ud ORAL Susp PO SCH (14:10)
[2020-06-23] MEDS ORDERED: cefTRIAXone 1GM/50ML D5W 50 ML IV ONE (14:15)
[2020-06-24] MEDS: LACTULOSE 20Gm/30ML SOLN PO SCH ×6 (02:01→21:39)
[2020-06-24 05:00] VITALS: BP 105/64
[2020-06-24 09:43] LABS: BUN/Creatinine Ratio 12.4; Calcium 7.8 mg/dL (8.5-10.1); Potassium 3.5 mmol/L (3.5-5.1)
[2020-06-24] MEDS: carBAMazepine 200 MG/10 ML Ud ORAL Susp PO SCH (10:00)
[2020-06-24 10:05] LABS: INR 1.36 (0.9-1.15)
[2020-06-24] MEDS: Ensure Pudding Vanilla 4 oz Cup PO SCH ×3 (10:41→18:48)
[2020-06-24] MEDS: cefTRIAXone 1GM/50ML D5W 50 ML IV SCH (10:41)
[2020-06-24] MEDS: MULTIPLE VITAMINS W/ MINERALS TAB PO SCH (10:42)
[2020-06-24] MEDS: FOLIC ACID 1 MG TAB PO SCH (10:42)
[2020-06-24] MEDS: Pro-Stat SF 30ml Vanilla PO SCH (10:42)
[2020-06-24] MEDS: THIAMINE HCL 100 MG TAB PO SCH (10:42)
[2020-06-24] MEDS: PANTOPRAZOLE 40 MG TAB PO SCH (10:43)
[2020-06-24] MEDS: rifAXIMin 550 MG TAB PO SCH ×2 (10:43→21:38)
[2020-06-24 22:00] VITALS: BP 127/72
[2020-06-25] MEDS: LACTULOSE 20Gm/30ML SOLN PO SCH ×4 (02:27→16:02)
[2020-06-25 05:00] VITALS: BP 112/55
[2020-06-25 06:42] LABS: Mean Corpuscular Volume 94.5 fL (80.0-100.0)
[2020-06-25 06:46] LABS: Hematocrit 30.6 % (41.0-53.0); Mean Corpuscular Hgb Conc. 32.8 g/dL (32.0-36.0); Red Blood Cells 3.24 10^6/uL (4.5-5.90); Red Cell Distribution Width 19.9 % (11.8-14.3); White Blood Cell 2.9 10^3/uL (4.4-10.8)
[2020-06-25 06:50] LABS: Potassium 3.3 mmol/L (3.5-5.1)
[2020-06-25 06:56] LABS: BUN/Creatinine Ratio 10.9; Calcium 7.1 mg/dL (8.5-10.1)
[2020-06-25 08:01] LABS: Basophils % (manual) 0 (0.0-2.0); Blast Cells 0; Metamyelocytes % 0; Promyelocytes % 0; Reactive Lymphocytes 0
[2020-06-25 08:19] LABS: Band Neutrophils % (manual) 5; Eosinophils % (manual) 7 (0-7); Lymphocytes % (manual) 15 (10.0-50.0); Monocytes % (manual) 15 (0-12); Myelocytes % 1
[2020-06-25] MEDS ORDERED: POTASSIUM CHL 20 Meq TABLET PO ONE (08:30)
[2020-06-25 09:00] VITALS: BP 150/74
[2020-06-25] MEDS: THIAMINE HCL 100 MG TAB PO SCH (10:13)
[2020-06-25] MEDS: FOLIC ACID 1 MG TAB PO SCH (10:13)
[2020-06-25] MEDS: Pro-Stat SF 30ml Vanilla PO SCH (10:14)
[2020-06-25] MEDS: MULTIPLE VITAMINS W/ MINERALS TAB PO SCH (10:14)
[2020-06-25] MEDS: carBAMazepine 200 MG/10 ML Ud ORAL Susp PO SCH (10:14)
[2020-06-25] MEDS: PANTOPRAZOLE 40 MG TAB PO SCH (10:14)
[2020-06-25] MEDS: rifAXIMin 550 MG TAB PO SCH (10:15)
[2020-06-25] MEDS: cefTRIAXone 1GM/50ML D5W 50 ML IV SCH (10:17)
[2020-06-25] MEDS: Ensure Pudding Vanilla 4 oz Cup PO SCH ×2 (10:18→16:01)
[2020-06-25] MEDS ORDERED: AMOX500T86 PO (12:06)
[2020-06-25] MEDS ORDERED: RIFA550T PO (12:17)
[2020-06-25] MEDS ORDERED: LACT10SO3 PO (12:17)
[2020-06-25 13:00] VITALS: BP 114/74
[2020-06-25 13:06] VITALS: BP 112/55
[2020-06-25 17:00] VITALS: BP 113/63
[2020-06-25 17:02] VITALS: BP 113/63
== END 2020-06-25 18:40 | disposition home health service (06) | DRG 441 ==
LOC: EDBD 20:46 → ER 20:50 → TELE 06-15 02:17 → DOU IN ICU 06-15 14:59 → TELE-CENTR 06-15 16:41
PROVIDERS: ADMIT Nurse Practitioner; ATTEND Internal Medicine
DX: K72.90 Hepatic failure, unspecified without coma (principal); N17.0 Acute kidney failure with tubular necrosis; K76.6 Portal hypertension; D61.818 Other pancytopenia; D68.4 Acquired coagulation factor deficiency; E87.1 Hypo-osmolality and hyponatremia; E44.0 Moderate protein-calorie malnutrition; R16.1 Splenomegaly, not elsewhere classified; E87.6 Hypokalemia; Y90.9 Presence of alcohol in blood, level not specified; E66.9 Obesity, unspecified; K70.30 Alcoholic cirrhosis of liver without ascites; I12.9 Hypertensive chronic kidney disease with stage 1 through stage 4 chronic kidney disease, or unspecified chronic kidney disease; J32.0 Chronic maxillary sinusitis; N18.9 Chronic kidney disease, unspecified; Z82.49 Family history of ischemic heart disease and other diseases of the circulatory system; Z90.49 Acquired absence of other specified parts of digestive tract; Z91.14 Patient's other noncompliance with medication regimen; Z87.01 Personal history of pneumonia (recurrent); Z68.36 Body mass index [BMI] 36.0-36.9, adult; Z86.16 Personal history of COVID-19; Z20.822 Contact with and (suspected) exposure to COVID-19; F10.10 Alcohol abuse, uncomplicated
CPT/HCPCS: 36415; 36600; 70450; 70486; 71045; 74021; 74177; 76700; 80048; 80053; 80307; 80320; 81001; 82140; 82247; 82805; 82962; 83605; 83690; 83735; 83880; 84132; 84443; 84484; 85007; 85025; 85027; 85610; 85730; 87426; 93005; 95819; 97110; 97116; 97163; 97530; G0378; J0696; J2405; J3480

== ENCOUNTER 2020-07-20 19:14 | Emergency (ER) | payer MEDICARE, MEDICAID ==
[~2020-07-20] VITALS: Ht 167.6 cm; Wt 95.3 kg
[~2020-07-20 19:14] MED LIST changes: +AMOX500T86 PO
[2020-07-20] MEDS ORDERED: MORPHINE SULFATE 4 MG/ML SYR/VIAL IV ONE (20:00)
[2020-07-20] MEDS ORDERED: ONDANSETRON HCL 4 MG/2 ML VIAL IV ONE (20:00)
[2020-07-20 20:34] LABS: Urine Bacteria FEW /hpf (None Seen); Urine Blood Negative /uL (Negative); Urine Specific Gravity 1.002 (1.001-1.035); Urine WBC 6 /hpf (0 - 3)
[2020-07-20 20:35] LABS: Hematocrit 28.8 % (41.0-53.0); Hemoglobin 9.5 g/dL (13.5-17.5); White Blood Cell 2.9 10^3/uL (4.4-10.8)
[2020-07-20 20:37] LABS: Mean Corpuscular Hemoglobin 28.8 pg (28.0-32.0); Mean Corpuscular Hgb Conc. 32.9 g/dL (32.0-36.0); Mean Corpuscular Volume 87.6 fL (80.0-100.0); Red Blood Cells 3.29 10^6/uL (4.5-5.90); Red Cell Distribution Width 19.6 % (11.8-14.3)
[2020-07-20 20:47] LABS: Band Neutrophils % (manual) 0; Basophils % (manual) 0 (0.0-2.0); Blast Cells 0; Metamyelocytes % 0; Myelocytes % 0; Promyelocytes % 0; Reactive Lymphocytes 0
[2020-07-20 20:50] LABS: Albumin 2.1 g/dL (3.4-5.0); BUN/Creatinine Ratio 8.1; Calcium 7.9 mg/dL (8.5-10.1); Potassium 4.8 mmol/L (3.5-5.1)
[2020-07-20 20:53] LABS: Bilirubin, Total 1.8 mg/dL (0.2-1.0); Total Protein 5.8 g/dL (6.4-8.2)
[2020-07-20 20:57] LABS: INR 1.2 (0.9-1.15); Partial Thromboplastin Time 33.4 sec (23.0-31.2)
[2020-07-20 21:41] LABS: Eosinophils % (manual) 8 (0-7); Lymphocytes % (manual) 23 (10.0-50.0); Monocytes % (manual) 19 (0-12)
[2020-07-21 04:00] VITALS: BP 121/86
[2020-07-21] MEDS ORDERED: cefTRIAXone 1GM/50ML D5W 50 ML IV ONE (04:45)
== END 2020-07-21 05:20 | disposition home or self-care (01) ==
LOC: ER 19:16
DX: N12 Tubulo-interstitial nephritis, not specified as acute or chronic (principal)
CPT/HCPCS: 36415; 80053; 81001; 83605; 83690; 85007; 85027; 85610; 85730; 93005; 96365; 96375; 99285; J0696; J2270; J2405

== ENCOUNTER 2020-08-09 15:00 | Emergency (ER) | payer MEDICARE, MEDICAID ==
[~2020-08-09] VITALS: Ht 170.2 cm; Wt 90.7 kg
[2020-08-09 16:20] LABS: Red Blood Cells 3.76 10^6/uL (4.5-5.90); White Blood Cell 2.2 10^3/uL (4.4-10.8)
[2020-08-09 16:22] LABS: Hematocrit 32.3 % (41.0-53.0); Mean Corpuscular Hemoglobin 29.3 pg (28.0-32.0); Mean Corpuscular Hgb Conc. 34.1 g/dL (32.0-36.0); Mean Corpuscular Volume 85.9 fL (80.0-100.0)
[2020-08-09 16:40] LABS: Albumin 2.7 g/dL (3.4-5.0); Calcium 8.8 mg/dL (8.5-10.1); Potassium 4.8 mmol/L (3.5-5.1)
[2020-08-09 16:42] LABS: BUN/Creatinine Ratio 10.4
[2020-08-09 16:45] LABS: Bilirubin, Total 2.5 mg/dL (0.2-1.0); Total Protein 6.9 g/dL (6.4-8.2)
[2020-08-09 17:25] LABS: Red Cell Distribution Width 21.4 % (11.8-14.3)
[2020-08-09 17:28] LABS: Basophils % (manual) 0 (0.0-2.0); Blast Cells 0; Metamyelocytes % 0; Myelocytes % 0; Promyelocytes % 0; Reactive Lymphocytes 0
[2020-08-09 20:00] VITALS: BP 121/84
[2020-08-09 23:21] LABS: Band Neutrophils % (manual) 1
[2020-08-09 23:22] LABS: Eosinophils % (manual) 1 (0-7); Lymphocytes % (manual) 22 (10.0-50.0); Monocytes % (manual) 12 (0-12)
== END 2020-08-09 23:20 | disposition home or self-care (01) ==
LOC: ER 15:00
DX: K74.69 Other cirrhosis of liver (principal); R18.8 Other ascites; E44.0 Moderate protein-calorie malnutrition; I10 Essential (primary) hypertension; Z68.31 Body mass index [BMI] 31.0-31.9, adult; Z20.822 Contact with and (suspected) exposure to COVID-19; Z79.899 Other long term (current) drug therapy; Z90.49 Acquired absence of other specified parts of digestive tract
CPT/HCPCS: 36415; 70450; 74176; 80053; 85007; 85027; 85049; 87426

== ENCOUNTER 2020-12-19 15:36 | Emergency (ER) | payer MEDICAID, MEDICARE ==
[~2020-12-19] VITALS: Ht 165.1 cm; Wt 92.5 kg
[2020-12-19 16:34] VITALS: BP 146/86
== END 2020-12-19 20:51 | disposition left against medical advice (07) ==
LOC: ER 15:36
DX: R10.31 Right lower quadrant pain (principal); R10.32 Left lower quadrant pain; Z53.21 Procedure and treatment not carried out due to patient leaving prior to being seen by health care provider
CPT/HCPCS: 93005

== ENCOUNTER 2020-12-22 14:21 | Emergency (ER) | payer MEDICARE, MEDICAID ==
[~2020-12-22] VITALS: Ht 175.3 cm; Wt 93.0 kg
[2020-12-22 16:27] LABS: White Blood Cell 3.2 10^3/uL (4.4-10.8)
[2020-12-22 16:29] LABS: Hematocrit 32.2 % (41.0-53.0); Hemoglobin 10.6 g/dL (13.5-17.5); Mean Corpuscular Hemoglobin 31.5 pg (28.0-32.0); Mean Corpuscular Hgb Conc. 32.9 g/dL (32.0-36.0); Mean Corpuscular Volume 95.6 fL (80.0-100.0); Red Blood Cells 3.37 10^6/uL (4.5-5.90)
[2020-12-22 16:57] LABS: Albumin 1.8 g/dL (3.4-5.0); BUN/Creatinine Ratio 7.7; Potassium 4.2 mmol/L (3.5-5.1)
[2020-12-22 17:00] LABS: Bilirubin, Total 1.5 mg/dL (0.2-1.0); Total Protein 5.7 g/dL (6.4-8.2)
[2020-12-22 17:18] LABS: Red Cell Distribution Width 20.6 % (11.8-14.3)
[2020-12-22 17:19] LABS: Basophils % (manual) 0 (0.0-2.0); Blast Cells 0; Metamyelocytes % 0; Myelocytes % 0; Promyelocytes % 0; Reactive Lymphocytes 0
[2020-12-22 17:23] LABS: Band Neutrophils % (manual) 2; Eosinophils % (manual) 2 (0-7); Lymphocytes % (manual) 26 (10.0-50.0); Monocytes % (manual) 8 (0-12)
[2020-12-22 22:00] VITALS: BP 130/72
== END 2020-12-22 22:55 | disposition home or self-care (01) ==
LOC: ER 14:21
DX: R18.8 Other ascites (principal); R51.9 Headache, unspecified; I10 Essential (primary) hypertension; Z86.2 Personal history of diseases of the blood and blood-forming organs and certain disorders involving the immune mechanism; Z90.49 Acquired absence of other specified parts of digestive tract; Z79.2 Long term (current) use of antibiotics; Z79.899 Other long term (current) drug therapy
CPT/HCPCS: 36415; 71045; 80053; 85007; 85027; 93005

== ENCOUNTER 2021-10-14 21:30 | Inpatient (IN) | payer MEDICARE, MEDICAID ==
[~2021-10-14] VITALS: Ht 170.2 cm; Wt 98.3 kg
[2021-10-14 23:00] LABS: Basophils # (auto) 0 10 ^3/uL (0-0.2); Eosinophils # (auto) 0 10 ^3/uL (0-0.8); Lymphocytes # (auto) 0.2 10 ^3/uL (0.4-5.4); Monocytes # (auto) 0.5 10 ^3/uL (0-1.3)
[2021-10-14 23:02] LABS: Basophils % (auto) 0.1 % (0.0-2.0); Eosinophils % (auto) 0.5 % (0.0-7.0); Hematocrit 39.3 % (41.0-53.0); Hemoglobin 13.1 g/dL (13.5-17.5); Lymphocytes % (auto) 2.9 % (10.0-50.0); Mean Corpuscular Hemoglobin 34.3 pg (28.0-32.0); Mean Corpuscular Hgb Conc. 33.3 g/dL (32.0-36.0); Mean Corpuscular Volume 103.1 fL (80.0-100.0); Monocytes % (auto) 6.3 % (0.0-12.0); Neutrophils # (auto) 6.7 10 ^3/uL (1.6-8.6); Neutrophils % (auto) 90.2 % (37.0-80.0); Nucleated Red Blood Cells % 0.1 %; Red Blood Cells 3.81 10^6/uL (4.5-5.90); Red Cell Distribution Width 16.5 % (11.8-14.3); White Blood Cell 7.4 10^3/uL (4.4-10.8)
[2021-10-14 23:18] LABS: Albumin 2.4 g/dL (3.4-5.0); Calcium 8.3 mg/dL (8.5-10.1)
[2021-10-14 23:22] LABS: BUN/Creatinine Ratio 15.5; Total Protein 5.9 g/dL (6.4-8.2)
[2021-10-15 00:31] LABS: Potassium 4.5 mmol/L (3.5-5.1)
[2021-10-15 00:59] LABS: Urine Bacteria FEW /hpf (None Seen); Urine Blood Negative /uL (Negative); Urine Hyaline Cast FEW /lpf (0 - 2); Urine Mucus FEW (None Seen); Urine Specific Gravity 1.012 (1.001-1.035); Urine WBC 1 /hpf (0 - 3)
[2021-10-15 01:13] LABS: Amphetamine Screen, Urine NEGATIVE (NEGATIVE); Barbiturate Scree,Urine NEGATIVE (NEGATIVE); Benzodiazephine Screen, Urine NEGATIVE (NEGATIVE); Cannabinoid Screen, Urine NEGATIVE (NEGATIVE); Cocaine Screen, Urine NEGATIVE (NEGATIVE); Opiate Scree,Urine NEGATIVE (NEGATIVE); Phencyclidine Screen, Urine NEGATIVE (NEGATIVE)
[2021-10-15] MEDS ORDERED: LORazepam 2MG/ML-1ML VIAL IV ONE (01:30)
[2021-10-15] MEDS ORDERED: DOCUSATE SOD 100 MG CAP PO PRN (03:45)
[2021-10-15] MEDS ORDERED: ONDANSETRON HCL 4 MG/2 ML VIAL IV PRN (03:45)
[2021-10-15] MEDS ORDERED: ACETAMINOPHEN 325 MG TAB PO PRN (03:45)
[2021-10-15] MEDS ORDERED: TEMAZEPAM 15 MG CAP PO PRN (03:45)
[2021-10-15] MEDS ORDERED: LORazepam 0.5 MG TAB PO PRN (03:45)
[2021-10-15] MEDS: cefTRIAXone 1GM/50ML D5W 50 ML IV SCH (05:05)
[2021-10-15] MEDS: SODIUM CHLORIDE 0.9% 1,000 ML IV SCH ×2 (05:20→20:25)
[2021-10-15] MEDS ORDERED: LACTULOSE 20Gm/30ML SOLN PO SCH (06:00)
[2021-10-15 06:42] LABS: Hemoglobin 13.2 g/dL (13.5-17.5); White Blood Cell 6.9 10^3/uL (4.4-10.8)
[2021-10-15 06:45] LABS: Hematocrit 39.1 % (41.0-53.0); Mean Corpuscular Hemoglobin 34.5 pg (28.0-32.0); Mean Corpuscular Hgb Conc. 33.7 g/dL (32.0-36.0); Mean Corpuscular Volume 102.4 fL (80.0-100.0); Red Blood Cells 3.82 10^6/uL (4.5-5.90); Red Cell Distribution Width 16.7 % (11.8-14.3)
[2021-10-15 06:59] LABS: BUN/Creatinine Ratio 16.1; Calcium 8.5 mg/dL (8.5-10.1); Potassium 4.3 mmol/L (3.5-5.1)
[2021-10-15] MEDS: LACTULOSE 10g/15ml SOLN 473ML PR ONE ×2 (07:18→08:35)
[2021-10-15 07:35] LABS: Basophils % (manual) 0 (0.0-2.0); Blast Cells 0; Myelocytes % 0; Promyelocytes % 0; Reactive Lymphocytes 0
[2021-10-15 07:44] LABS: Band Neutrophils % (manual) 18; Eosinophils % (manual) 1 (0-7); Lymphocytes % (manual) 8 (10.0-50.0); Metamyelocytes % 1; Monocytes % (manual) 8 (0-12)
[2021-10-15] MEDS ORDERED: THIAMINE 100mg/ml INJ (200mg/2ml VIAL) IV ONE (13:30)
[2021-10-15] MEDS ORDERED: PANTOPRAZOLE 40 MG/10 ML VIAL INJ IV ONE (13:30)
[2021-10-15] MEDS: LACTULOSE 20Gm/30ML SOLN PO SCH ×6 (16:04→22:23)
[2021-10-15 19:03] VITALS: BP 110/68
[2021-10-15 22:00] VITALS: BP 111/71
[2021-10-15] MEDS: rifAXIMin 550 MG TAB PO SCH (22:00)
[2021-10-16] VITALS (35 sets, daily range): BP systolic 113–159; BP diastolic 74–100
[2021-10-16] MEDS: LACTULOSE 20Gm/30ML SOLN PO SCH ×5 (02:00→09:00)
[2021-10-16 07:10] LABS: Basophils # (auto) 0 10 ^3/uL (0-0.2); Eosinophils # (auto) 0 10 ^3/uL (0-0.8); Eosinophils % (auto) 0.1 % (0.0-7.0); Hemoglobin 14.4 g/dL (13.5-17.5); Lymphocytes # (auto) 0.6 10 ^3/uL (0.4-5.4); Mean Corpuscular Hgb Conc. 34.2 g/dL (32.0-36.0); Monocytes # (auto) 1.1 10 ^3/uL (0-1.3); Monocytes % (auto) 14.9 % (0.0-12.0); Neutrophils # (auto) 5.8 10 ^3/uL (1.6-8.6); Red Blood Cells 4.12 10^6/uL (4.5-5.90); White Blood Cell 7.5 10^3/uL (4.4-10.8)
[2021-10-16 07:12] LABS: Basophils % (auto) 0.3 % (0.0-2.0); Hematocrit 42.2 % (41.0-53.0); Lymphocytes % (auto) 7.5 % (10.0-50.0); Mean Corpuscular Volume 102.4 fL (80.0-100.0); Neutrophils % (auto) 77.2 % (37.0-80.0); Nucleated Red Blood Cells % 0.2 %; Red Cell Distribution Width 17.1 % (11.8-14.3)
[2021-10-16 07:24] LABS: Potassium 3.8 mmol/L (3.5-5.1)
[2021-10-16 07:28] LABS: Albumin 2.5 g/dL (3.4-5.0); BUN/Creatinine Ratio 20.5; Calcium 8.5 mg/dL (8.5-10.1)
[2021-10-16 07:31] LABS: Bilirubin, Total 2.6 mg/dL (0.2-1.0); Total Protein 6.5 g/dL (6.4-8.2)
[2021-10-16] MEDS: rifAXIMin 550 MG TAB PO SCH ×2 (09:00→22:00)
[2021-10-16] MEDS: THIAMINE 100mg/ml INJ (200mg/2ml VIAL) IV SCH (09:02)
[2021-10-16] MEDS: cefTRIAXone 1GM/50ML D5W 50 ML IV SCH (09:02)
[2021-10-16] MEDS: PANTOPRAZOLE 40 MG/10 ML VIAL INJ IV SCH (09:02)
[2021-10-16] MEDS ORDERED: metroNIDAZOLE 500MG/100ML 100 ML IV ONE (10:45)
[2021-10-16] MEDS: SODIUM CHLORIDE 0.9% 1,000 ML IV SCH (12:10)
[2021-10-16] MEDS: LACTULOSE 10g/15ml SOLN 473ML PR SCH ×2 (13:59→17:36)
[2021-10-16] MEDS: metroNIDAZOLE 500MG/100ML 100 ML IV SCH (17:38)
[2021-10-16] MEDS: MORPHINE SULFATE INJ 2 MG/ml SYRG IV PRN (22:23)
[2021-10-17] VITALS (38 sets, daily range): BP systolic 84–130; BP diastolic 44–81
[2021-10-17] MEDS: metroNIDAZOLE 500MG/100ML 100 ML IV SCH ×3 (04:00→18:42)
[2021-10-17 04:23] LABS: INR 1.39 (0.9-1.15)
[2021-10-17 04:27] LABS: Basophils # (auto) 0 10 ^3/uL (0-0.2); Eosinophils # (auto) 0.1 10 ^3/uL (0-0.8); Mean Corpuscular Hemoglobin 34.5 pg (28.0-32.0); Mean Corpuscular Hgb Conc. 33.9 g/dL (32.0-36.0); Monocytes # (auto) 1.1 10 ^3/uL (0-1.3)
[2021-10-17 04:29] LABS: Basophils % (auto) 0.2 % (0.0-2.0); Eosinophils % (auto) 1.3 % (0.0-7.0); Hematocrit 38.9 % (41.0-53.0); Hemoglobin 13.2 g/dL (13.5-17.5); Lymphocytes # (auto) 0.8 10 ^3/uL (0.4-5.4); Lymphocytes % (auto) 11.6 % (10.0-50.0); Mean Corpuscular Volume 101.9 fL (80.0-100.0); Monocytes % (auto) 15.7 % (0.0-12.0); Neutrophils # (auto) 5.1 10 ^3/uL (1.6-8.6); Neutrophils % (auto) 71.2 % (37.0-80.0); Nucleated Red Blood Cells % 0.6 %; Red Blood Cells 3.82 10^6/uL (4.5-5.90); White Blood Cell 7.2 10^3/uL (4.4-10.8)
[2021-10-17 04:33] LABS: Albumin 2.2 g/dL (3.4-5.0); Calcium 8.2 mg/dL (8.5-10.1); Potassium 3.5 mmol/L (3.5-5.1)
[2021-10-17 04:37] LABS: BUN/Creatinine Ratio 27.9; Bilirubin, Total 1.7 mg/dL (0.2-1.0); Total Protein 5.4 g/dL (6.4-8.2)
[2021-10-17] MEDS: SODIUM CHLORIDE 0.9% 1,000 ML IV SCH ×2 (05:45→22:25)
[2021-10-17] MEDS: ALBUMIN 25% 50 ML IV SCH ×3 (08:32→22:37)
[2021-10-17 09:13] LABS: Sodium Urine 17 mmol/L (40-220)
[2021-10-17 09:14] LABS: Creatinine, Urine 97 mg/dL (30.0-125.0)
[2021-10-17] MEDS: rifAXIMin 550 MG TAB PO SCH ×2 (10:00→22:37)
[2021-10-17] MEDS: THIAMINE 100mg/ml INJ (200mg/2ml VIAL) IV SCH (11:05)
[2021-10-17] MEDS: PANTOPRAZOLE 40 MG/10 ML VIAL INJ IV SCH (11:05)
[2021-10-17 11:19] LABS: INR 1.43 (0.9-1.15); Partial Thromboplastin Time 32.8 sec (24.6-33.4)
[2021-10-17] MEDS: cefTRIAXone 1GM/50ML D5W 50 ML IV SCH (12:35)
[2021-10-17] MEDS ORDERED: PPN PER PHARMACY 0 ML IV SCH ×2 (14:30→14:45)
[2021-10-17 14:56] LABS: Magnesium 2.8 mg/dL (1.6-2.6); Phosphorus 3.9 mg/dL (2.5-4.90)
[2021-10-17] MEDS ORDERED: POTASSIUM CHL 20MEQ/100ML 100 ML IV ONE (15:30)
[2021-10-17] MEDS: MIDODRINE HCL 10 MG TAB PO SCH (17:00)
[2021-10-17] MEDS: LACTULOSE 20Gm/30ML SOLN PO SCH ×2 (17:00→23:47)
[2021-10-17] MEDS ORDERED: AMINO ACID INFUSION IN D10W 1,000 ML IV NR (20:00)
[2021-10-17] MEDS: ACCU-CHEK COMFORT CURVE STRIP VI SCH (23:47)
[2021-10-17] MEDS: InsuLIN REG 1unit/0.01ml Soln (100units/ml) SC SCH (23:47)
[2021-10-18] VITALS (24 sets, daily range): BP systolic 72–110; BP diastolic 39–69
[2021-10-18] MEDS ORDERED: DEXTROSE (50%) 50ML SYRG IV SCH
[2021-10-18] MEDS: metroNIDAZOLE 500MG/100ML 100 ML IV SCH ×4 (03:00→19:04)
[2021-10-18 04:10] LABS: Hematocrit 28.9 % (41.0-53.0); Mean Corpuscular Hemoglobin 36.9 pg (28.0-32.0); Mean Corpuscular Hgb Conc. 34.5 g/dL (32.0-36.0); Mean Corpuscular Volume 106.8 fL (80.0-100.0); White Blood Cell 2.7 10^3/uL (4.4-10.8)
[2021-10-18 04:32] LABS: Albumin 2.1 g/dL (3.4-5.0); Calcium 7.2 mg/dL (8.5-10.1); Magnesium 2.6 mg/dL (1.6-2.6); Potassium 3.3 mmol/L (3.5-5.1)
[2021-10-18 04:36] LABS: Bilirubin, Total 1.3 mg/dL (0.2-1.0); Phosphorus 1.7 mg/dL (2.5-4.90); Total Protein 4.5 g/dL (6.4-8.2)
[2021-10-18 05:01] LABS: Basophils % (manual) 0 (0.0-2.0); Blast Cells 0; Metamyelocytes % 0; Myelocytes % 0; Promyelocytes % 0; Reactive Lymphocytes 0
[2021-10-18] MEDS: ACCU-CHEK COMFORT CURVE STRIP VI SCH ×2 (05:50→12:14)
[2021-10-18] MEDS: InsuLIN REG 1unit/0.01ml Soln (100units/ml) SC SCH ×2 (05:50→12:00)
[2021-10-18] MEDS: MIDODRINE HCL 10 MG TAB PO SCH ×3 (05:55→19:03)
[2021-10-18] MEDS: LACTULOSE 20Gm/30ML SOLN PO SCH ×3 (05:55→19:03)
[2021-10-18] MEDS ORDERED: POTASSIUM CHL 20MEQ/100ML 100 ML IV ONE ×2 (07:45→10:15)
[2021-10-18 08:05] LABS: Band Neutrophils % (manual) 2; Eosinophils % (manual) 4 (0-7); Lymphocytes % (manual) 13 (10.0-50.0); Monocytes % (manual) 11 (0-12)
[2021-10-18] MEDS: SOD CHL 0.45% 1,000 ML IV SCH ×2 (08:39→23:09)
[2021-10-18] MEDS: PANTOPRAZOLE 40 MG/10 ML VIAL INJ IV SCH (09:33)
[2021-10-18] MEDS: THIAMINE 100mg/ml INJ (200mg/2ml VIAL) IV SCH (09:33)
[2021-10-18] MEDS: cefTRIAXone 1GM/50ML D5W 50 ML IV SCH (09:34)
[2021-10-18] MEDS: rifAXIMin 550 MG TAB PO SCH ×2 (09:34→21:48)
[2021-10-18] MEDS ORDERED: POTASSIUM CHL 20MEQ/100ML 100 ML IV SCH (10:15)
[2021-10-18 10:46] LABS: Basophils # (auto) 0 10 ^3/uL (0-0.2); Basophils % (auto) 0.4 % (0.0-2.0); Eosinophils # (auto) 0.1 10 ^3/uL (0-0.8); Hemoglobin 10.4 g/dL (13.5-17.5); Monocytes # (auto) 0.5 10 ^3/uL (0-1.3); Neutrophils # (auto) 1.8 10 ^3/uL (1.6-8.6); White Blood Cell 2.9 10^3/uL (4.4-10.8)
[2021-10-18 10:51] LABS: Eosinophils % (auto) 3.3 % (0.0-7.0); Hematocrit 31.1 % (41.0-53.0); Lymphocytes # (auto) 0.4 10 ^3/uL (0.4-5.4); Lymphocytes % (auto) 15.1 % (10.0-50.0); Mean Corpuscular Hemoglobin 35.5 pg (28.0-32.0); Mean Corpuscular Hgb Conc. 33.4 g/dL (32.0-36.0); Mean Corpuscular Volume 106.1 fL (80.0-100.0); Monocytes % (auto) 18.1 % (0.0-12.0); Neutrophils % (auto) 63.1 % (37.0-80.0); Nucleated Red Blood Cells % 0.4 %; Red Blood Cells 2.93 10^6/uL (4.5-5.90); Red Cell Distribution Width 16.2 % (11.8-14.3)
[2021-10-18] MEDS ORDERED: POTASSIUM PHOSPHATE 22 MEQ in SODIUM CHL 0.9% 100 ML IV ONE (12:00)
[2021-10-18 15:58] LABS: Hematocrit 31.4 % (41.0-53.0); Hemoglobin 10.4 g/dL (13.5-17.5); Mean Corpuscular Hemoglobin 34.6 pg (28.0-32.0); Mean Corpuscular Hgb Conc. 33.1 g/dL (32.0-36.0); Mean Corpuscular Volume 104.5 fL (80.0-100.0); Red Blood Cells 3.01 10^6/uL (4.5-5.90); Red Cell Distribution Width 16.7 % (11.8-14.3); White Blood Cell 3.4 10^3/uL (4.4-10.8)
[2021-10-18 17:28] LABS: Band Neutrophils % (manual) 0; Basophils % (manual) 0 (0.0-2.0); Blast Cells 0; Metamyelocytes % 0; Myelocytes % 0; Promyelocytes % 0; Reactive Lymphocytes 0
[2021-10-18 17:29] LABS: Eosinophils % (manual) 4 (0-7); Lymphocytes % (manual) 10 (10.0-50.0); Monocytes % (manual) 12 (0-12)
[2021-10-18] MEDS ORDERED: PPN PER PHARMACY IV NR ×7 (20:00)
[2021-10-19] VITALS (25 sets, daily range): BP systolic 76–126; BP diastolic 43–85
[2021-10-19] MEDS: LACTULOSE 20Gm/30ML SOLN PO SCH ×5 (00:05→17:47)
[2021-10-19] MEDS: MORPHINE SULFATE INJ 2 MG/ml SYRG IV PRN (02:10)
[2021-10-19] MEDS: metroNIDAZOLE 500MG/100ML 100 ML IV SCH ×3 (03:13→18:53)
[2021-10-19] MEDS: SOD CHL 0.45% 1,000 ML IV SCH (03:16)
[2021-10-19 04:29] LABS: Basophils # (auto) 0 10 ^3/uL (0-0.2); Eosinophils # (auto) 0.2 10 ^3/uL (0-0.8); Hemoglobin 10.7 g/dL (13.5-17.5); Lymphocytes # (auto) 0.5 10 ^3/uL (0.4-5.4); Monocytes # (auto) 0.5 10 ^3/uL (0-1.3); Neutrophils # (auto) 1.8 10 ^3/uL (1.6-8.6)
[2021-10-19 04:31] LABS: Basophils % (auto) 0.7 % (0.0-2.0); Eosinophils % (auto) 6.9 % (0.0-7.0); Hematocrit 31.8 % (41.0-53.0); Lymphocytes % (auto) 15.9 % (10.0-50.0); Mean Corpuscular Hemoglobin 35.9 pg (28.0-32.0); Mean Corpuscular Hgb Conc. 33.7 g/dL (32.0-36.0); Mean Corpuscular Volume 106.4 fL (80.0-100.0); Neutrophils % (auto) 60.5 % (37.0-80.0); Nucleated Red Blood Cells % 0.3 %; Red Blood Cells 2.99 10^6/uL (4.5-5.90); Red Cell Distribution Width 16.1 % (11.8-14.3); White Blood Cell 3.1 10^3/uL (4.4-10.8)
[2021-10-19 04:46] LABS: BUN/Creatinine Ratio 24.3; Calcium 7.1 mg/dL (8.5-10.1); Potassium 3.8 mmol/L (3.5-5.1)
[2021-10-19] MEDS: MIDODRINE HCL 10 MG TAB PO SCH ×3 (06:14→17:47)
[2021-10-19] MEDS: PANTOPRAZOLE 40 MG/10 ML VIAL INJ IV SCH (10:27)
[2021-10-19] MEDS: THIAMINE 100mg/ml INJ (200mg/2ml VIAL) IV SCH (10:27)
[2021-10-19] MEDS: cefTRIAXone 1GM/50ML D5W 50 ML IV SCH (10:28)
[2021-10-19] MEDS: rifAXIMin 550 MG TAB PO SCH ×2 (10:28→22:20)
[2021-10-20] VITALS (14 sets, daily range): BP systolic 97–120; BP diastolic 51–71
[2021-10-20] MEDS: LACTULOSE 20Gm/30ML SOLN PO SCH ×4 (00:18→17:09)
[2021-10-20] MEDS: metroNIDAZOLE 500MG/100ML 100 ML IV SCH ×3 (02:31→17:09)
[2021-10-20 04:25] LABS: BUN/Creatinine Ratio 18.9; Calcium 7.1 mg/dL (8.5-10.1); Potassium 3.8 mmol/L (3.5-5.1)
[2021-10-20] MEDS: MIDODRINE HCL 10 MG TAB PO SCH ×3 (06:05→17:09)
[2021-10-20] MEDS: rifAXIMin 550 MG TAB PO SCH ×2 (09:52→21:04)
[2021-10-20] MEDS: THIAMINE 100mg/ml INJ (200mg/2ml VIAL) IV SCH (09:53)
[2021-10-20] MEDS: PANTOPRAZOLE 40 MG/10 ML VIAL INJ IV SCH (09:53)
[2021-10-20] MEDS: cefTRIAXone 1GM/50ML D5W 50 ML IV SCH (09:53)
[2021-10-20] MEDS: metroNIDAZOLE 500 MG TAB PO SCH (21:03)
[2021-10-20] MEDS: AMOXICILLIN TRIHYDRATE 250 MG CAP PO SCH (21:03)
[2021-10-21] MEDS: LACTULOSE 20Gm/30ML SOLN PO SCH ×3 (00:34→12:49)
[2021-10-21 05:00] VITALS: BP 112/63
[2021-10-21 05:11] LABS: Basophils # (auto) 0 10 ^3/uL (0-0.2); Eosinophils # (auto) 0.3 10 ^3/uL (0-0.8); Hemoglobin 11.8 g/dL (13.5-17.5); Lymphocytes # (auto) 0.8 10 ^3/uL (0.4-5.4); Monocytes # (auto) 0.6 10 ^3/uL (0-1.3); Monocytes % (auto) 17.3 % (0.0-12.0); Neutrophils # (auto) 1.9 10 ^3/uL (1.6-8.6); White Blood Cell 3.6 10^3/uL (4.4-10.8)
[2021-10-21 05:13] LABS: Basophils % (auto) 1.1 % (0.0-2.0); Eosinophils % (auto) 7.5 % (0.0-7.0); Hematocrit 34.1 % (41.0-53.0); Lymphocytes % (auto) 21.6 % (10.0-50.0); Mean Corpuscular Hemoglobin 35.5 pg (28.0-32.0); Mean Corpuscular Hgb Conc. 34.7 g/dL (32.0-36.0); Mean Corpuscular Volume 102.2 fL (80.0-100.0); Neutrophils % (auto) 52.5 % (37.0-80.0); Nucleated Red Blood Cells % 0.2 %; Red Blood Cells 3.33 10^6/uL (4.5-5.90)
[2021-10-21 05:30] LABS: Potassium 3.6 mmol/L (3.5-5.1)
[2021-10-21 05:37] LABS: BUN/Creatinine Ratio 15.9; Calcium 7.1 mg/dL (8.5-10.1)
[2021-10-21] MEDS: metroNIDAZOLE 500 MG TAB PO SCH ×2 (06:10→14:00)
[2021-10-21] MEDS: MIDODRINE HCL 10 MG TAB PO SCH ×2 (06:11→12:49)
[2021-10-21] MEDS: AMOXICILLIN TRIHYDRATE 250 MG CAP PO SCH ×2 (06:11→14:00)
[2021-10-21 09:00] VITALS: BP 101/66
[2021-10-21] MEDS ORDERED: AMOX250C3 PO (09:46)
[2021-10-21] MEDS ORDERED: PANTOPRAZOLE 40 MG TAB PO SCH (10:00)
[2021-10-21] MEDS ORDERED: THIAMINE HCL 100 MG TAB PO SCH (10:00)
[2021-10-21] MEDS: rifAXIMin 550 MG TAB PO SCH (12:48)
[2021-10-21 13:00] VITALS: BP 114/64
[2021-10-21 14:06] VITALS: BP 114/64
== END 2021-10-21 14:50 | disposition home health service (06) | DRG 441 ==
LOC: EDBD 21:30 → ER 21:30 → TELE 10-15 03:40 → TELE-EAST 10-15 16:20 → ICU WEST 10-16 11:03 → TELE-CENTR 10-20 13:42
PROVIDERS: ADMIT Hospitalist; ATTEND Internal Medicine Pulmonary Disease
DX: K72.90 Hepatic failure, unspecified without coma (principal); J96.01 Acute respiratory failure with hypoxia; K76.7 Hepatorenal syndrome; N39.0 Urinary tract infection, site not specified; K56.7 Ileus, unspecified; N17.9 Acute kidney failure, unspecified; D61.818 Other pancytopenia; E87.4 Mixed disorder of acid-base balance; K70.30 Alcoholic cirrhosis of liver without ascites; N18.31 Chronic kidney disease, stage 3a; I12.9 Hypertensive chronic kidney disease with stage 1 through stage 4 chronic kidney disease, or unspecified chronic kidney disease; B96.20 Unspecified Escherichia coli [E. coli] as the cause of diseases classified elsewhere; F10.229 Alcohol dependence with intoxication, unspecified; D69.6 Thrombocytopenia, unspecified; E88.09 Other disorders of plasma-protein metabolism, not elsewhere classified; E87.6 Hypokalemia; Z20.822 Contact with and (suspected) exposure to COVID-19; K43.9 Ventral hernia without obstruction or gangrene; Z82.49 Family history of ischemic heart disease and other diseases of the circulatory system; Z90.49 Acquired absence of other specified parts of digestive tract
CPT/HCPCS: 36415; 36600; 70450; 71045; 74018; 76700; 80048; 80053; 80307; 80320; 81001; 82140; 82570; 82805; 82962; 83735; 84100; 84300; 84478; 84484; 85007; 85025; 85027; 85049; 85610; 85730; 86850; 86900; 86901; 86920; 87040; 87076; 87081; 87086; 87088; 87186; 93005; 96365; 96375; C9113; G0378; J0696; J3480; J3490

== ENCOUNTER 2022-01-08 19:13 | Emergency (ER) | payer MEDICARE, MEDICAID ==
[~2022-01-08] VITALS: Ht 167.6 cm; Wt 88.4 kg
[~2022-01-08 19:13] MED LIST changes: +AMOX250C3 PO; -AMOX500T86 PO
[2022-01-08 20:12] VITALS: BP 137/90
[2022-01-08 21:50] LABS: Alanine Aminotransferase 42 U/L (16-61); Albumin 2.5 g/dL (3.4-5.0); Anion Gap 9 (5-15); Aspartate Aminotransferase 41 U/L (15-37); BUN/Creatinine Ratio 13.3; Blood Urea Nitrogen 18 mg/dL (7-18); Carbon Dioxide 17 mmol/L (21-32); Chloride 111 mmol/L (98-107); GFR African American 66 mL/min; GFR Non-African American 55 mL/min; Glucose 82 mg/dL (74-106); Potassium 4.9 mmol/L (3.5-5.1); Sodium 137 mmol/L (136-145)
[2022-01-08 21:52] LABS: Alkaline Phosphatase 127 U/L (45-117); Bilirubin, Total 1.9 mg/dL (0.2-1.0); Total Protein 7.1 g/dL (6.4-8.2)
[2022-01-08] MEDS ORDERED: LACTULOSE 20Gm/30ML SOLN PO ONE (22:15)
[2022-01-08 22:18] LABS: Basophils # (auto) 0 10 ^3/uL (0-0.2); Basophils % (auto) 0.9 % (0.0-2.0); Eosinophils # (auto) 0.1 10 ^3/uL (0-0.8); Eosinophils % (auto) 3.5 % (0.0-7.0); Hemoglobin 14.9 g/dL (13.5-17.5); Lymphocytes % (auto) 28.5 % (10.0-50.0); Mean Corpuscular Hemoglobin 35.1 pg (28.0-32.0); Mean Corpuscular Hgb Conc. 33.9 g/dL (32.0-36.0); Mean Corpuscular Volume 103.4 fL (80.0-100.0); Monocytes # (auto) 0.5 10 ^3/uL (0-1.3); Monocytes % (auto) 15.3 % (0.0-12.0); Neutrophils # (auto) 1.8 10 ^3/uL (1.6-8.6); Neutrophils % (auto) 51.8 % (37.0-80.0); Nucleated Red Blood Cells % 0.7 %; Red Blood Cells 4.25 10^6/uL (4.5-5.90); Red Cell Distribution Width 17.2 % (11.8-14.3); White Blood Cell 3.5 10^3/uL (4.4-10.8)
[2022-01-08] MEDS ORDERED: FUROSEMIDE 20 MG TAB PO ONE (22:30)
== END 2022-01-09 00:17 | disposition left against medical advice (07) ==
LOC: ER 19:16
DX: K76.82 Hepatic encephalopathy (principal); K70.30 Alcoholic cirrhosis of liver without ascites; E72.20 Disorder of urea cycle metabolism, unspecified; I10 Essential (primary) hypertension; Z86.2 Personal history of diseases of the blood and blood-forming organs and certain disorders involving the immune mechanism; Z90.49 Acquired absence of other specified parts of digestive tract; Z79.2 Long term (current) use of antibiotics; Z79.899 Other long term (current) drug therapy; Z20.822 Contact with and (suspected) exposure to COVID-19
CPT/HCPCS: 36415; 70450; 71045; 80053; 80320; 82140; 83880; 85025; 87426; 93005

== ENCOUNTER 2022-01-09 16:10 | Emergency (ER) | payer MEDICARE, MEDICAID ==
[~2022-01-09] VITALS: Ht 165.1 cm; Wt 86.5 kg
[2022-01-09 17:08] LABS: Urine Bacteria NONE SEEN /hpf (None Seen); Urine Blood TRACE /uL (Negative); Urine Hyaline Cast FEW /lpf (0 - 2); Urine Mucus FEW (None Seen); Urine Specific Gravity 1.015 (1.001-1.035); Urine WBC 4 /hpf (0 - 3)
[2022-01-09 18:45] LABS: Basophils # (auto) 0 10 ^3/uL (0-0.2); Eosinophils # (auto) 0.1 10 ^3/uL (0-0.8); Eosinophils % (auto) 4.4 % (0.0-7.0); Mean Corpuscular Hemoglobin 34.9 pg (28.0-32.0); Monocytes # (auto) 0.5 10 ^3/uL (0-1.3); Monocytes % (auto) 16.3 % (0.0-12.0)
[2022-01-09 18:47] LABS: Basophils % (auto) 0.8 % (0.0-2.0); Hematocrit 45.9 % (41.0-53.0); Hemoglobin 15.7 g/dL (13.5-17.5); Lymphocytes % (auto) 32.2 % (10.0-50.0); Mean Corpuscular Hgb Conc. 34.1 g/dL (32.0-36.0); Mean Corpuscular Volume 102.4 fL (80.0-100.0); Neutrophils # (auto) 1.5 10 ^3/uL (1.6-8.6); Neutrophils % (auto) 46.3 % (37.0-80.0); Nucleated Red Blood Cells % 0.7 %; Red Blood Cells 4.48 10^6/uL (4.5-5.90); Red Cell Distribution Width 17.3 % (11.8-14.3); White Blood Cell 3.2 10^3/uL (4.4-10.8)
[2022-01-09 18:57] LABS: INR 1.24 (0.9-1.15); Partial Thromboplastin Time 33.9 sec (24.6-33.4)
[2022-01-09 19:21] LABS: Albumin 2.6 g/dL (3.4-5.0); BUN/Creatinine Ratio 12.3; Calcium 9.1 mg/dL (8.5-10.1); Magnesium 2.1 mg/dL (1.6-2.6); Potassium 5.1 mmol/L (3.5-5.1)
[2022-01-09 19:23] LABS: Bilirubin, Total 2.2 mg/dL (0.2-1.0)
[2022-01-10 14:22] LABS: Urine Specific Gravity 1.018 (1.001-1.035)
[2022-01-10 14:23] LABS: Urine Blood Negative /uL (Negative)
[2022-01-10] MEDS ORDERED: MORPHINE SULFATE INJ 2 MG/ml SYRG IV ONE (21:00)
[2022-01-10] MEDS ORDERED: ONDANSETRON HCL 4 MG/2 ML VIAL IM ONE (21:00)
[2022-01-10 21:19] VITALS: BP 108/83
== END 2022-01-10 22:27 | disposition short-term general hospital (02) ==
LOC: ER 16:10
DX: K56.609 Unspecified intestinal obstruction, unspecified as to partial versus complete obstruction (principal); K46.0 Unspecified abdominal hernia with obstruction, without gangrene; Z20.822 Contact with and (suspected) exposure to COVID-19
CPT/HCPCS: 36415; 74176; 80053; 81001; 82140; 83615; 83735; 85025; 85610; 85730; 87426; 93005; 96372; 96374; 99285; J2270; J2405

== ENCOUNTER 2022-01-17 23:25 | Inpatient (IN) | payer MEDICARE, MEDICAID ==
[2022-01-17 23:19] VITALS: BP 125/67
[2022-01-18] MEDS ORDERED: TEMAZEPAM 15 MG CAP PO PRN (01:15)
[2022-01-18] MEDS ORDERED: ONDANSETRON HCL 4 MG/2 ML VIAL IV PRN (01:15)
[2022-01-18 02:53] LABS: INR 1.38 (0.9-1.15); Partial Thromboplastin Time 36.7 sec (24.6-33.4)
[2022-01-18 02:54] LABS: Albumin 1.8 g/dL (3.4-5.0); BUN/Creatinine Ratio 11.9; Calcium 7.7 mg/dL (8.5-10.1); Potassium 3.8 mmol/L (3.5-5.1)
[2022-01-18 02:57] LABS: Bilirubin, Total 1.6 mg/dL (0.2-1.0)
[2022-01-18 03:10] LABS: Eosinophils # (auto) 0.2 10 ^3/uL (0-0.8); Mean Corpuscular Hemoglobin 36.3 pg (28.0-32.0)
[2022-01-18 03:12] LABS: Basophils # (auto) 0 10 ^3/uL (0-0.2); Basophils % (auto) 0.7 % (0.0-2.0); Hematocrit 34.8 % (41.0-53.0); Hemoglobin 12.1 g/dL (13.5-17.5); Lymphocytes # (auto) 0.6 10 ^3/uL (0.4-5.4); Mean Corpuscular Hgb Conc. 34.6 g/dL (32.0-36.0); Mean Corpuscular Volume 104.8 fL (80.0-100.0); Monocytes # (auto) 0.5 10 ^3/uL (0-1.3); Monocytes % (auto) 15.5 % (0.0-12.0); Neutrophils # (auto) 1.7 10 ^3/uL (1.6-8.6); Neutrophils % (auto) 57.8 % (37.0-80.0); Nucleated Red Blood Cells % 0.2 %; Red Blood Cells 3.32 10^6/uL (4.5-5.90); Red Cell Distribution Width 17.2 % (11.8-14.3); White Blood Cell 2.9 10^3/uL (4.4-10.8)
[2022-01-18 05:00] VITALS: BP 105/55
[2022-01-18 08:00] VITALS: BP 112/66
[2022-01-18 08:35] VITALS: BP 101/69
[2022-01-18] MEDS ORDERED: rifAXIMin 550 MG TAB PO SCH (10:00)
[2022-01-18] MEDS ORDERED: LACTULOSE 20Gm/30ML SOLN PO SCH (10:00)
[2022-01-18] MEDS ORDERED: PANTOPRAZOLE 40 MG TAB PO SCH (10:00)
[2022-01-18] MEDS ORDERED: SPIRONOLACTONE 25 MG TAB PO SCH (10:00)
[2022-01-18 12:25] VITALS: BP 112/66
[2022-01-18 13:27] VITALS: BP 112/66
== END 2022-01-18 16:30 | disposition home or self-care (01) | DRG 394 ==
LOC: CENTRAL 23:25
PROVIDERS: ADMIT Nurse Practitioner; ATTEND Internal Medicine
DX: K43.6 Other and unspecified ventral hernia with obstruction, without gangrene (principal); D61.818 Other pancytopenia; K70.30 Alcoholic cirrhosis of liver without ascites; I10 Essential (primary) hypertension; E66.9 Obesity, unspecified; F10.10 Alcohol abuse, uncomplicated; Z20.822 Contact with and (suspected) exposure to COVID-19
CPT/HCPCS: 36415; 80053; 82140; 85025; 85610; 85730; 87081; 87426; 87804; 97163; G0378

== ENCOUNTER 2022-04-10 16:30 | Inpatient (IN) | payer MEDICARE, MEDICAID ==
[~2022-04-10] VITALS: Ht 177.8 cm; Wt 94.3 kg
[2022-04-10 17:42] LABS: Sodium 144 mmol/L (136-145)
[2022-04-10 17:43] LABS: Alanine Aminotransferase 27 U/L (16-61); Alkaline Phosphatase 100 U/L (45-117); Anion Gap 6 (5-15); Aspartate Aminotransferase 38 U/L (15-37); Bilirubin, Total 3.1 mg/dL (0.2-1.0); Blood Urea Nitrogen 13 mg/dL (7-18); Carbon Dioxide 25 mmol/L (21-32); Chloride 113 mmol/L (98-107); GFR African American 86 mL/min; GFR Non-African American 71 mL/min; Glucose 95 mg/dL (74-106); INR 1.38 (0.9-1.15); Partial Thromboplastin Time 36.7 sec (24.6-33.4)
[2022-04-10 17:44] LABS: Albumin 1.8 g/dL (3.4-5.0); Magnesium 2.1 mg/dL (1.6-2.6); Total Protein 5.3 g/dL (6.4-8.2)
[2022-04-10] MEDS ORDERED: LACTULOSE 20Gm/30ML SOLN PO ONE (19:30)
[2022-04-10 20:05] LABS: Basophils # (auto) 0 10 ^3/uL (0-0.2); Eosinophils # (auto) 0.1 10 ^3/uL (0-0.8); Neutrophils # (auto) 1.3 10 ^3/uL (1.6-8.6)
[2022-04-10 20:07] LABS: Basophils % (auto) 1.1 % (0.0-2.0); Eosinophils % (auto) 3.8 % (0.0-7.0); Hematocrit 36.5 % (41.0-53.0); Hemoglobin 13.3 g/dL (13.5-17.5); Lymphocytes # (auto) 0.5 10 ^3/uL (0.4-5.4); Mean Corpuscular Hemoglobin 39.2 pg (28.0-32.0); Mean Corpuscular Volume 107.5 fL (80.0-100.0); Monocytes # (auto) 0.4 10 ^3/uL (0-1.3); Monocytes % (auto) 15.3 % (0.0-12.0); Neutrophils % (auto) 56.8 % (37.0-80.0); Nucleated Red Blood Cells % 0.8 %; Red Blood Cells 3.39 10^6/uL (4.5-5.90); Red Cell Distribution Width 17.7 % (11.8-14.3); White Blood Cell 2.3 10^3/uL (4.4-10.8)
[2022-04-10 20:13] LABS: Mean Corpuscular Hgb Conc. 36.5 g/dL (32.0-36.0)
[2022-04-10] MEDS: POTASSIUM CHL 20MEQ/100ML 100 ML IV SCH (21:30)
[2022-04-10] MEDS ORDERED: ONDANSETRON HCL 4 MG/2 ML VIAL IV PRN (21:45)
[2022-04-10] MEDS ORDERED: carBAMazepine 200 MG TAB PO SCH (22:00)
[2022-04-11] MEDS ORDERED: POTASSIUM CHL 20MEQ/100ML 100 ML IV ONE (05:19)
[2022-04-11] MEDS: POTASSIUM CHL 20MEQ/100ML 100 ML IV SCH (05:22)
[2022-04-11] MEDS: GABAPENTIN 100 MG CAP PO SCH ×3 (05:22→13:52)
[2022-04-11] MEDS: rifAXIMin 550 MG TAB PO SCH ×2 (05:23→08:16)
[2022-04-11] MEDS: LACTULOSE 20Gm/30ML SOLN PO SCH ×4 (05:23→18:30)
[2022-04-11 06:39] LABS: Basophils # (auto) 0 10 ^3/uL (0-0.2); Eosinophils # (auto) 0.1 10 ^3/uL (0-0.8); Hemoglobin 13.4 g/dL (13.5-17.5); Lymphocytes # (auto) 0.5 10 ^3/uL (0.4-5.4); Monocytes # (auto) 0.3 10 ^3/uL (0-1.3); Neutrophils # (auto) 1.1 10 ^3/uL (1.6-8.6); White Blood Cell 2.1 10^3/uL (4.4-10.8)
[2022-04-11 06:42] LABS: Basophils % (auto) 1.2 % (0.0-2.0); Eosinophils % (auto) 3.9 % (0.0-7.0); Hematocrit 36.4 % (41.0-53.0); Lymphocytes % (auto) 25.3 % (10.0-50.0); Mean Corpuscular Hemoglobin 40.6 pg (28.0-32.0); Mean Corpuscular Volume 110.7 fL (80.0-100.0); Monocytes % (auto) 16.6 % (0.0-12.0); Nucleated Red Blood Cells % 0.1 %; Red Blood Cells 3.29 10^6/uL (4.5-5.90); Red Cell Distribution Width 17.8 % (11.8-14.3)
[2022-04-11 07:04] LABS: BUN/Creatinine Ratio 12.3; Calcium 8.3 mg/dL (8.5-10.1)
[2022-04-11 07:07] LABS: Bilirubin, Total 3.6 mg/dL (0.2-1.0); Total Protein 5.5 g/dL (6.4-8.2)
[2022-04-11 07:18] LABS: Mean Corpuscular Hgb Conc. 36.7 g/dL (32.0-36.0)
[2022-04-11] MEDS ORDERED: POTASSIUM EFFERVESENT TAB 25 MEQ PO ONE (08:00)
[2022-04-11] MEDS: POTASSIUM CHL 20 Meq TABLET PO SCH (08:11)
[2022-04-11] MEDS: carBAMazepine 200 MG TAB PO SCH (08:11)
[2022-04-11] MEDS: SPIRONOLACTONE 25 MG TAB PO SCH (08:12)
[2022-04-11] MEDS: PANTOPRAZOLE 40 MG TAB PO SCH (08:12)
[2022-04-11] MEDS ORDERED: ENALAPRIL MALEATE 2.5 MG TAB PO SCH (10:00)
[2022-04-11] MEDS ORDERED: FUROSEMIDE 40 MG TAB PO SCH (10:00)
[2022-04-11 15:07] LABS: BUN/Creatinine Ratio 10.9; Calcium 8.5 mg/dL (8.5-10.1); Magnesium 2.1 mg/dL (1.6-2.6); Potassium 3.4 mmol/L (3.5-5.1)
[2022-04-11 15:10] LABS: Bilirubin, Total 3.2 mg/dL (0.2-1.0); Total Protein 5.8 g/dL (6.4-8.2)
[2022-04-11] MEDS ORDERED: POTASSIUM CHL 20 Meq TABLET PO ONE (18:15)
[2022-04-11 22:30] VITALS: BP 114/70
[2022-04-11 23:12] VITALS: BP 114/70
[2022-04-12] MEDS: rifAXIMin 550 MG TAB PO SCH ×3 (01:57→22:49)
[2022-04-12] MEDS: GABAPENTIN 100 MG CAP PO SCH ×4 (01:57→22:56)
[2022-04-12] MEDS: LACTULOSE 20Gm/30ML SOLN PO SCH ×5 (01:58→23:05)
[2022-04-12 05:00] VITALS: BP 97/59
[2022-04-12 06:17] LABS: BUN/Creatinine Ratio 11.7; Potassium 3.4 mmol/L (3.5-5.1)
[2022-04-12 09:00] VITALS: BP 101/69
[2022-04-12] MEDS ORDERED: FUROSEMIDE 40 MG TAB PO SCH (10:00)
[2022-04-12] MEDS: SPIRONOLACTONE 25 MG TAB PO SCH (10:07)
[2022-04-12] MEDS: carBAMazepine 200 MG TAB PO SCH (10:07)
[2022-04-12] MEDS: PANTOPRAZOLE 40 MG TAB PO SCH (10:07)
[2022-04-12] MEDS: POTASSIUM CHL 20 Meq TABLET PO SCH (10:07)
[2022-04-12] MEDS ORDERED: LACTULOSE 20Gm/30ML SOLN PO ONE ×2 (11:45→16:00)
[2022-04-12 12:59] VITALS: BP 105/62
[2022-04-12 17:15] VITALS: BP 113/73
[2022-04-12 20:00] VITALS: BP 100/61
[2022-04-12 22:00] VITALS: BP 100/61
[2022-04-13 05:00] VITALS: BP 111/68
[2022-04-13] MEDS: LACTULOSE 20Gm/30ML SOLN PO SCH ×2 (06:04→12:00)
[2022-04-13] MEDS: GABAPENTIN 100 MG CAP PO SCH ×2 (06:10→14:00)
[2022-04-13 06:54] LABS: BUN/Creatinine Ratio 10.9; Calcium 7.7 mg/dL (8.5-10.1); Potassium 3.5 mmol/L (3.5-5.1)
[2022-04-13 08:00] VITALS: BP 102/68
[2022-04-13 08:01] LABS: Basophils # (auto) 0 10 ^3/uL (0-0.2); Eosinophils # (auto) 0.2 10 ^3/uL (0-0.8); Hemoglobin 12.1 g/dL (13.5-17.5); Lymphocytes # (auto) 0.6 10 ^3/uL (0.4-5.4); Monocytes # (auto) 0.3 10 ^3/uL (0-1.3); Neutrophils # (auto) 0.8 10 ^3/uL (1.6-8.6)
[2022-04-13 08:02] LABS: Basophils % (auto) 0.8 % (0.0-2.0); Eosinophils % (auto) 10.8 % (0.0-7.0); Hematocrit 33.8 % (41.0-53.0); Lymphocytes % (auto) 31.7 % (10.0-50.0); Mean Corpuscular Hemoglobin 38.5 pg (28.0-32.0); Mean Corpuscular Hgb Conc. 35.9 g/dL (32.0-36.0); Mean Corpuscular Volume 107.3 fL (80.0-100.0); Monocytes % (auto) 16.9 % (0.0-12.0); Neutrophils % (auto) 39.8 % (37.0-80.0); Nucleated Red Blood Cells % 0.2 %; Red Blood Cells 3.15 10^6/uL (4.5-5.90); Red Cell Distribution Width 17.1 % (11.8-14.3)
[2022-04-13] MEDS: SPIRONOLACTONE 25 MG TAB PO SCH (08:58)
[2022-04-13] MEDS: rifAXIMin 550 MG TAB PO SCH (08:58)
[2022-04-13] MEDS: carBAMazepine 200 MG TAB PO SCH (08:58)
[2022-04-13] MEDS: PANTOPRAZOLE 40 MG TAB PO SCH (08:58)
[2022-04-13] MEDS ORDERED: LACT10SO70 PO (11:45)
[2022-04-13 12:00] VITALS: BP 102/55
[2022-04-13 16:00] VITALS: BP 107/63
== END 2022-04-13 16:00 | disposition home or self-care (01) | DRG 100 ==
LOC: ER 16:30 → EDBD 16:30 → OVERFLOW 21:38 → WEST WING 04-11 22:20
PROVIDERS: ADMIT Nurse Practitioner; ATTEND Internal Medicine
PROC: 4A00X4Z Measurement of Central Nervous Electrical Activity, External Approach (ICD-10-PCS; principal; 2022-04-10)
DX: G40.209 Localization-related (focal) (partial) symptomatic epilepsy and epileptic syndromes with complex partial seizures, not intractable, without status epilepticus (principal); E43 Unspecified severe protein-calorie malnutrition; G93.41 Metabolic encephalopathy; D61.818 Other pancytopenia; D68.4 Acquired coagulation factor deficiency; K70.31 Alcoholic cirrhosis of liver with ascites; K76.82 Hepatic encephalopathy; K72.90 Hepatic failure, unspecified without coma; E87.6 Hypokalemia; D64.9 Anemia, unspecified; E87.5 Hyperkalemia; G50.0 Trigeminal neuralgia; K43.9 Ventral hernia without obstruction or gangrene; Z20.822 Contact with and (suspected) exposure to COVID-19; F10.10 Alcohol abuse, uncomplicated; Y90.9 Presence of alcohol in blood, level not specified; I12.9 Hypertensive chronic kidney disease with stage 1 through stage 4 chronic kidney disease, or unspecified chronic kidney disease; N18.31 Chronic kidney disease, stage 3a; Z79.899 Other long term (current) drug therapy; Z79.84 Long term (current) use of oral hypoglycemic drugs; Z86.73 Personal history of transient ischemic attack (TIA), and cerebral infarction without residual deficits; Z90.49 Acquired absence of other specified parts of digestive tract; Z82.49 Family history of ischemic heart disease and other diseases of the circulatory system; Z68.29 Body mass index [BMI] 29.0-29.9, adult
CPT/HCPCS: 36415; 70450; 70551; 71045; 80048; 80053; 82140; 83735; 83880; 84484; 85025; 85610; 85730; 87426; 93005; 95819; 97163; G0378; J3480

== ENCOUNTER 2022-09-04 15:44 | Inpatient (IN) | payer MEDICARE, MEDICAID ==
[~2022-09-04] VITALS: Ht 167.6 cm; Wt 98.7 kg
[~2022-09-04 15:44] MED LIST changes: +DOCU-265 PO; -DOCU100C10 PO; +ENAL1TAB42 PO; -ENAL2.5T7 PO; +GABA-1250 PO; -GABA300C10 PO; +LACT10SO70 PO
[2022-09-04 16:29] VITALS: PULSE 66; RESP 18; O2SAT 96
[2022-09-04 16:50] LABS: Basophils # (auto) 0 10 ^3/uL (0-0.2); Eosinophils # (auto) 0.2 10 ^3/uL (0-0.8); Hemoglobin 13.7 g/dL (13.5-17.5); Lymphocytes # (auto) 0.7 10 ^3/uL (0.4-5.4); Mean Corpuscular Hemoglobin 37.5 pg (28.0-32.0); Mean Corpuscular Hgb Conc. 34.3 g/dL (32.0-36.0); Monocytes # (auto) 0.3 10 ^3/uL (0-1.3); Red Blood Cells 3.66 10^6/uL (4.5-5.90)
[2022-09-04 16:52] LABS: Lymphocytes % (auto) 25.7 % (10.0-50.0); Mean Corpuscular Volume 109.3 fL (80.0-100.0); Monocytes % (auto) 11.9 % (0.0-12.0); Neutrophils # (auto) 1.4 10 ^3/uL (1.6-8.6); Neutrophils % (auto) 55.4 % (37.0-80.0); Nucleated Red Blood Cells % 0.1 %; White Blood Cell 2.5 10^3/uL (4.4-10.8)
[2022-09-04 17:11] LABS: Albumin 1.8 g/dL (3.4-5.0); Calcium 7.3 mg/dL (8.5-10.1); Potassium 3.9 mmol/L (3.5-5.1)
[2022-09-04 17:15] LABS: BUN/Creatinine Ratio 11.9 (10.0-20.0); Total Protein 4.9 g/dL (6.4-8.2)
[2022-09-04] MEDS ORDERED: LACTULOSE 20Gm/30ML SOLN PO ONE (18:00)
[2022-09-04 18:33] LABS: Urine Bacteria NONE SEEN /hpf (None Seen); Urine Blood Negative /uL (Negative); Urine Specific Gravity 1.013 (1.001-1.035); Urine WBC <1 /hpf (0 - 3)
[2022-09-04 19:40] VITALS: PULSE 63; RESP 20; O2SAT 95
[2022-09-04] MEDS ORDERED: ONDANSETRON HCL 4 MG/2 ML VIAL IV PRN (21:30)
[2022-09-04] MEDS: GABAPENTIN 300 MG CAP PO SCH (22:15)
[2022-09-05] MEDS ORDERED: FUROSEMIDE 40 MG/4 ML VIAL IV ONE (01:15)
[2022-09-05] MEDS: GABAPENTIN 300 MG CAP PO SCH ×3 (07:00→21:04)
[2022-09-05] MEDS: FUROSEMIDE 20 MG TAB PO SCH ×2 (07:02→18:33)
[2022-09-05 07:28] LABS: Basophils # (auto) 0 10 ^3/uL (0-0.2); Eosinophils # (auto) 0.2 10 ^3/uL (0-0.8); Hemoglobin 13.6 g/dL (13.5-17.5); Mean Corpuscular Hgb Conc. 34.8 g/dL (32.0-36.0); Monocytes # (auto) 0.3 10 ^3/uL (0-1.3); Neutrophils # (auto) 0.9 10 ^3/uL (1.6-8.6)
[2022-09-05 07:30] LABS: Basophils % (auto) 1.2 % (0.0-2.0); Eosinophils % (auto) 10.9 % (0.0-7.0); Lymphocytes # (auto) 0.6 10 ^3/uL (0.4-5.4); Lymphocytes % (auto) 27.8 % (10.0-50.0); Mean Corpuscular Hemoglobin 38.1 pg (28.0-32.0); Mean Corpuscular Volume 109.4 fL (80.0-100.0); Monocytes % (auto) 16.7 % (0.0-12.0); Neutrophils % (auto) 43.4 % (37.0-80.0); Nucleated Red Blood Cells % 0.2 %; Red Blood Cells 3.57 10^6/uL (4.5-5.90); Red Cell Distribution Width 16.2 % (11.8-14.3); White Blood Cell 2.1 10^3/uL (4.4-10.8)
[2022-09-05 07:45] VITALS: PULSE 64; RESP 16; O2SAT 98
[2022-09-05 07:49] LABS: Albumin 1.8 g/dL (3.4-5.0); Calcium 7.4 mg/dL (8.5-10.1); Potassium 3.4 mmol/L (3.5-5.1)
[2022-09-05 07:52] LABS: BUN/Creatinine Ratio 12.8 (10.0-20.0); Bilirubin, Total 2.1 mg/dL (0.2-1.0); Total Protein 4.9 g/dL (6.4-8.2)
[2022-09-05 09:08] LABS: INR 1.36 (0.9-1.15); Partial Thromboplastin Time 35.9 SEC (24.5-34.5)
[2022-09-05] MEDS: carBAMazepine 200 MG TAB PO SCH (09:50)
[2022-09-05] MEDS: LACTULOSE 20Gm/30ML SOLN PO SCH ×2 (09:50→21:04)
[2022-09-05] MEDS: ENALAPRIL MALEATE 2.5 MG TAB PO SCH (09:51)
[2022-09-05] MEDS ORDERED: SPIRONOLACTONE 25 MG TAB PO SCH (10:00)
[2022-09-05 11:28] VITALS: PULSE 62; RESP 26; O2SAT 98
[2022-09-05 18:49] VITALS: PULSE 88; RESP 18; O2SAT 97
[2022-09-05 22:00] VITALS: BP 115/75; PULSE 69; RESP 18; TEMP 97.9; O2SAT 98
[2022-09-05] MEDS: cefTRIAXone 1GM/50ML D5W 50 ML IV SCH (23:22)
[2022-09-06] VITALS (8 sets, daily range): BP systolic 96–116; BP diastolic 50–72; PULSE 65–71; RESP 16–19; TEMP 97.9–98.9; O2SAT 93–96
[2022-09-06 05:40] LABS: Basophils # (auto) 0 10 ^3/uL (0-0.2); Basophils % (auto) 1.3 % (0.0-2.0); Eosinophils # (auto) 0.2 10 ^3/uL (0-0.8); Monocytes # (auto) 0.3 10 ^3/uL (0-1.3); Neutrophils # (auto) 1.1 10 ^3/uL (1.6-8.6)
[2022-09-06 05:42] LABS: Eosinophils % (auto) 9.1 % (0.0-7.0); Hematocrit 37.4 % (41.0-53.0); Lymphocytes # (auto) 0.5 10 ^3/uL (0.4-5.4); Lymphocytes % (auto) 25.6 % (10.0-50.0); Mean Corpuscular Hgb Conc. 34.7 g/dL (32.0-36.0); Mean Corpuscular Volume 109.6 fL (80.0-100.0); Monocytes % (auto) 14.5 % (0.0-12.0); Neutrophils % (auto) 49.5 % (37.0-80.0); Nucleated Red Blood Cells % 0.2 %; Red Blood Cells 3.41 10^6/uL (4.5-5.90); White Blood Cell 2.1 10^3/uL (4.4-10.8)
[2022-09-06] MEDS: GABAPENTIN 300 MG CAP PO SCH ×3 (05:50→22:04)
[2022-09-06] MEDS: FUROSEMIDE 20 MG TAB PO SCH ×2 (05:50→19:55)
[2022-09-06 06:07] LABS: Potassium 3.5 mmol/L (3.5-5.1)
[2022-09-06 06:18] LABS: Albumin 1.7 g/dL (3.4-5.0); BUN/Creatinine Ratio 14.8 (10.0-20.0); Bilirubin, Total 1.8 mg/dL (0.2-1.0); Calcium 7.1 mg/dL (8.5-10.1); Magnesium 2.2 mg/dL (1.6-2.6); Total Protein 4.6 g/dL (6.4-8.2)
[2022-09-06] MEDS: LACTULOSE 20Gm/30ML SOLN PO SCH ×2 (08:55→22:04)
[2022-09-06] MEDS: carBAMazepine 200 MG TAB PO SCH (08:56)
[2022-09-06] MEDS: ENALAPRIL MALEATE 2.5 MG TAB PO SCH (08:58)
[2022-09-06] MEDS ORDERED: IOHEXOL 300 MG/ML 100ML BOTTLE IJ ONE (09:01)
[2022-09-06] MEDS: cefTRIAXone 1GM/50ML D5W 50 ML IV SCH (20:42)
[2022-09-07 05:00] VITALS: BP 102/63; PULSE 64; RESP 17; TEMP 98; O2SAT 94
[2022-09-07] MEDS: GABAPENTIN 300 MG CAP PO SCH ×2 (05:51→14:00)
[2022-09-07] MEDS: FUROSEMIDE 20 MG TAB PO SCH (05:52)
[2022-09-07 06:08] LABS: Basophils # (auto) 0 10 ^3/uL (0-0.2); Eosinophils # (auto) 0.2 10 ^3/uL (0-0.8); Lymphocytes # (auto) 0.5 10 ^3/uL (0.4-5.4); Monocytes # (auto) 0.3 10 ^3/uL (0-1.3); Neutrophils # (auto) 0.9 10 ^3/uL (1.6-8.6)
[2022-09-07 06:13] LABS: Basophils % (auto) 1.4 % (0.0-2.0); Hemoglobin 12.7 g/dL (13.5-17.5); Lymphocytes % (auto) 25.2 % (10.0-50.0); Mean Corpuscular Hemoglobin 38.5 pg (28.0-32.0); Mean Corpuscular Hgb Conc. 35.2 g/dL (32.0-36.0); Mean Corpuscular Volume 109.3 fL (80.0-100.0); Monocytes % (auto) 16.9 % (0.0-12.0); Neutrophils % (auto) 46.5 % (37.0-80.0); Red Blood Cells 3.29 10^6/uL (4.5-5.90); Red Cell Distribution Width 15.6 % (11.8-14.3)
[2022-09-07 06:35] LABS: BUN/Creatinine Ratio 13.4 (10.0-20.0); Calcium 7.1 mg/dL (8.5-10.1); Potassium 3.6 mmol/L (3.5-5.1)
[2022-09-07 08:00] VITALS: PULSE 68; RESP 16; O2SAT 93
[2022-09-07 09:02] VITALS: BP 106/64; PULSE 61; RESP 17; TEMP 97.9; O2SAT 94
[2022-09-07] MEDS: LACTULOSE 20Gm/30ML SOLN PO SCH (09:20)
[2022-09-07] MEDS: carBAMazepine 200 MG TAB PO SCH (09:20)
[2022-09-07] MEDS: ENALAPRIL MALEATE 2.5 MG TAB PO SCH (10:00)
[2022-09-07] MEDS ORDERED: FURO1TAB31 PO (10:46)
[2022-09-07] MEDS ORDERED: LACT10SO3 PO (10:46)
[2022-09-07 11:39] VITALS: BP 106/64; PULSE 61; RESP 17; TEMP 36.6; O2SAT 94
[2022-09-07 13:30] VITALS: BP 109/62; PULSE 69; RESP 18; TEMP 97.8; O2SAT 95
== END 2022-09-07 16:00 | disposition home or self-care (01) | DRG 441 ==
LOC: ER 15:44 → OVERFLOW 21:38 → CENTRAL 09-05 17:55
PROVIDERS: ADMIT Internal Medicine; ATTEND Internal Medicine
DX: K76.82 Hepatic encephalopathy (principal); E43 Unspecified severe protein-calorie malnutrition; D61.818 Other pancytopenia; E72.20 Disorder of urea cycle metabolism, unspecified; K76.6 Portal hypertension; R18.8 Other ascites; Z82.49 Family history of ischemic heart disease and other diseases of the circulatory system; K72.10 Chronic hepatic failure without coma; K74.60 Unspecified cirrhosis of liver; K43.9 Ventral hernia without obstruction or gangrene; N28.89 Other specified disorders of kidney and ureter; Z86.73 Personal history of transient ischemic attack (TIA), and cerebral infarction without residual deficits; Z90.49 Acquired absence of other specified parts of digestive tract
CPT/HCPCS: 36415; 74176; 74177; 76705; 80048; 80053; 81001; 82140; 83690; 83735; 83880; 84484; 85025; 85610; 85730; G0378; J0696

== ENCOUNTER 2022-10-19 11:56 | Emergency (ER) | payer MEDICARE, MEDICAID ==
[~2022-10-19] VITALS: Ht 167.6 cm; Wt 100.0 kg
[~2022-10-19 11:56] MED LIST changes: -AMOX250C3 PO; -LACT10SO70 PO
[2022-10-19] MEDS ORDERED: PANT40TA2 PO (14:55)
[2022-10-19] MEDS ORDERED: SPIR50TA2 PO (14:55)
[2022-10-19] MEDS ORDERED: PANTOPRAZOLE 40 MG TAB PO ONE (15:00)
[2022-10-19] MEDS ORDERED: SPIRONOLACTONE 25 MG TAB PO ONE (15:00)
[2022-10-19 16:05] VITALS: BP 129/74; PULSE 65; RESP 15; TEMP 98.3; O2SAT 95
== END 2022-10-19 16:24 | disposition home or self-care (01) ==
LOC: ER 11:56
DX: R60.0 Localized edema (principal); K74.60 Unspecified cirrhosis of liver; Z79.899 Other long term (current) drug therapy

== ENCOUNTER 2022-11-19 10:11 | Inpatient (IN) | payer MEDICARE, MEDICAID ==
[~2022-11-19] VITALS: Ht 170.2 cm; Wt 92.3 kg
[~2022-11-19 10:11] MED LIST changes: +SPIR50TA2 PO
[2022-11-19 10:45] VITALS: PULSE 67; RESP 14; O2SAT 97
[2022-11-19 11:04] LABS: Basophils # (auto) 0 10 ^3/uL (0-0.2); Basophils % (auto) 0.5 % (0.0-2.0); Eosinophils # (auto) 0.1 10 ^3/uL (0-0.8); Lymphocytes # (auto) 0.7 10 ^3/uL (0.4-5.4); Monocytes # (auto) 0.4 10 ^3/uL (0-1.3); Red Cell Distribution Width 15.6 % (11.8-14.3); White Blood Cell 3.1 10^3/uL (4.4-10.8)
[2022-11-19 11:07] LABS: Hematocrit 40.1 % (41.0-53.0); Hemoglobin 13.8 g/dL (13.5-17.5); Lymphocytes % (auto) 21.9 % (10.0-50.0); Mean Corpuscular Hemoglobin 38.2 pg (28.0-32.0); Mean Corpuscular Hgb Conc. 34.5 g/dL (32.0-36.0); Mean Corpuscular Volume 110.7 fL (80.0-100.0); Monocytes % (auto) 14.1 % (0.0-12.0); Neutrophils # (auto) 1.9 10 ^3/uL (1.6-8.6); Neutrophils % (auto) 60.5 % (37.0-80.0); Nucleated Red Blood Cells % 0.3 %; Red Blood Cells 3.63 10^6/uL (4.5-5.90)
[2022-11-19 11:19] LABS: INR 2.01 (0.9-1.15); Partial Thromboplastin Time 56.6 SEC (24.5-34.5); Prothrombin Time 20.2 sec (9.3-11.8)
[2022-11-19 11:20] LABS: Alanine Aminotransferase 35 U/L (7-40); Albumin 2.4 g/dL (3.2-4.8); Alkaline Phosphatase 131 U/L (46-116); Anion Gap 6 (5-15); Aspartate Aminotransferase 54 U/L (13-40); BUN/Creatinine Ratio 10.1 (10.0-20.0); Blood Urea Nitrogen 11 mg/dL (9-23); Calcium 8.2 mg/dL (8.7-10.4); Carbon Dioxide 22 mmol/L (20-30); Chloride 112 mmol/L (98-107); Glucose 102 mg/dL (74-106); Potassium 4.1 mmol/L (3.5-5.1); Sodium 140 mmol/L (136-145)
[2022-11-19 11:21] LABS: Bilirubin, Total 2.7 mg/dL (0.2-1.0); Total Protein 5.9 g/dL (5.7-8.2)
[2022-11-19 11:41] LABS: Platelet Estimate Decreased
[2022-11-19 11:43] LABS: Anisocytosis Slight; Macrocytosis Moderate
[2022-11-19] MEDS ORDERED: LORazepam 2MG/ML-1ML VIAL ONE (12:13)
[2022-11-19] MEDS ORDERED: LORazepam 2MG/ML-1ML VIAL IV ONE (12:15)
[2022-11-19] MEDS ORDERED: SODIUM CHLORIDE 0.9% 1,000 ML IV ONE (12:45)
[2022-11-19] MEDS ORDERED: LACTULOSE 20Gm/30ML SOLN PO ONE (13:00)
[2022-11-19 13:30] LABS: Magnesium 1.9 mg/dL (1.6-2.6)
[2022-11-19 16:57] LABS: Urine Bacteria NONE SEEN /hpf (None Seen); Urine Blood Negative /uL (Negative); Urine Clarity Clear (Clear); Urine Color Yellow (Yellow); Urine Protein, UAD Negative (Negative); Urine Specific Gravity 1.015 (1.001-1.035); Urine WBC 2 /hpf (0 - 3); Urine pH 7.5 (5.0-8.0)
[2022-11-19 17:04] LABS: Amphetamine Screen, Urine Neg (NEGATIVE); Barbiturate Scree,Urine Neg (NEGATIVE); Benzodiazephine Screen, Urine Neg (NEGATIVE); Cocaine Screen, Urine Neg (NEGATIVE); Opiate Scree,Urine Neg (NEGATIVE); Phencyclidine Screen, Urine Neg (NEGATIVE)
[2022-11-19 17:05] LABS: Cannabinoid Screen, Urine Neg (NEGATIVE)
[2022-11-19] MEDS ORDERED: ONDANSETRON HCL 4 MG/2 ML VIAL IV ONE (17:15)
[2022-11-19] MEDS ORDERED: MORPHINE SULFATE INJ 2 MG/ml SYRG IV ONE (17:15)
[2022-11-19] MEDS ORDERED: DOCUSATE SOD 100 MG CAP PO PRN (18:45)
[2022-11-19] MEDS ORDERED: MORPHINE SULFATE INJ 2 MG/ml SYRG IV PRN (18:45)
[2022-11-19] MEDS ORDERED: ACETAMINOPHEN 325 MG TAB PO PRN (18:45)
[2022-11-19] MEDS ORDERED: NITROGLYCERIN 0.4 MG SL TAB SL PRN (18:45)
[2022-11-19] MEDS ORDERED: FUROSEMIDE 40 MG/4 ML VIAL IV ONE (19:00)
[2022-11-19 19:43] LABS: Triglycerides 55 mg/dL (< 150)
[2022-11-19 19:44] LABS: LDL Cholesterol 66 mg/dL (< 100)
[2022-11-19 19:45] LABS: Cholesterol 123 mg/dL (< 200); HDL Cholesterol 38 mg/dL (40-59)
[2022-11-19] MEDS: GABAPENTIN 300 MG CAP PO SCH (22:18)
[2022-11-19] MEDS: rifAXIMin 550 MG TAB PO SCH (22:18)
[2022-11-19] MEDS: LACTULOSE 20Gm/30ML SOLN PO SCH (23:57)
[2022-11-20 05:45] LABS: Alanine Aminotransferase 32 U/L (7-40); Alkaline Phosphatase 108 U/L (46-116); Anion Gap 10 (5-15); BUN/Creatinine Ratio 10.4 (10.0-20.0); Blood Urea Nitrogen 11 mg/dL (9-23); Carbon Dioxide 21 mmol/L (20-30); Chloride 112 mmol/L (98-107); Glucose 75 mg/dL (74-106); Potassium 3.8 mmol/L (3.5-5.1); Sodium 143 mmol/L (136-145)
[2022-11-20] MEDS: GABAPENTIN 300 MG CAP PO SCH ×3 (05:45→21:26)
[2022-11-20] MEDS: LACTULOSE 20Gm/30ML SOLN PO SCH ×3 (05:45→17:29)
[2022-11-20 05:47] LABS: Albumin 2.2 g/dL (3.2-4.8); Aspartate Aminotransferase 51 U/L (13-40); Bilirubin, Total 3.5 mg/dL (0.2-1.0); Total Protein 5.4 g/dL (5.7-8.2)
[2022-11-20 07:05] LABS: Basophils # (auto) 0 10 ^3/uL (0-0.2); Basophils % (auto) 0.7 % (0.0-2.0); Eosinophils # (auto) 0.2 10 ^3/uL (0-0.8); Eosinophils % (auto) 8.4 % (0.0-7.0); Hematocrit 38.8 % (41.0-53.0); Hemoglobin 13.6 g/dL (13.5-17.5); Lymphocytes # (auto) 0.5 10 ^3/uL (0.4-5.4); Lymphocytes % (auto) 20.5 % (10.0-50.0); Mean Corpuscular Hemoglobin 38.7 pg (28.0-32.0); Mean Corpuscular Hgb Conc. 35.1 g/dL (32.0-36.0); Mean Corpuscular Volume 110.1 fL (80.0-100.0); Monocytes # (auto) 0.3 10 ^3/uL (0-1.3); Neutrophils # (auto) 1.5 10 ^3/uL (1.6-8.6); Neutrophils % (auto) 58.4 % (37.0-80.0); Nucleated Red Blood Cells % 0.3 %; Red Blood Cells 3.52 10^6/uL (4.5-5.90); Red Cell Distribution Width 15.5 % (11.8-14.3); White Blood Cell 2.6 10^3/uL (4.4-10.8)
[2022-11-20 08:01] LABS: Anisocytosis Slight; Macrocytosis Moderate; Tear Drop Cells FEW
[2022-11-20 08:02] LABS: Platelet Estimate Decrea
[2022-11-20 08:37] VITALS: PULSE 67; RESP 18; O2SAT 98
[2022-11-20] MEDS: rifAXIMin 550 MG TAB PO SCH ×2 (09:50→21:26)
[2022-11-20] MEDS: SPIRONOLACTONE 25 MG TAB PO SCH (09:50)
[2022-11-20] MEDS: FUROSEMIDE 20 MG/2 ML VIAL IV SCH (09:50)
[2022-11-20] MEDS: ENALAPRIL MALEATE 2.5 MG TAB PO SCH (09:51)
[2022-11-20] MEDS: CARBAMAZEPINE 100 MG PO SCH (09:53)
[2022-11-20 10:20] VITALS: BP 118/76; PULSE 70; RESP 16; TEMP 97.6; O2SAT 94
[2022-11-20 12:47] VITALS: BP 118/76; PULSE 70; RESP 16; TEMP 97.6; O2SAT 94
[2022-11-20 14:39] LABS: Body Fluid Red Blood Cells 2750 CUMM (0-2000); Body Fluid White Blood Cells 375 CUMM (0-200)
[2022-11-20 15:03] LABS: Body Fluid Polymorphonuclear 3 % (0-25)
[2022-11-20 15:14] LABS: Body Fluid pH 8
[2022-11-20 17:01] VITALS: BP 114/78; PULSE 65; RESP 18; TEMP 98; O2SAT 95
[2022-11-20 20:00] VITALS: O2SAT 96
[2022-11-20 22:00] VITALS: BP 118/75; PULSE 80; RESP 20; TEMP 97.6; O2SAT 95
[2022-11-21] VITALS (7 sets, daily range): BP systolic 105–125; BP diastolic 60–82; PULSE 62–64; RESP 16–19; TEMP 97.6–98.2; O2SAT 96–100
[2022-11-21] MEDS ORDERED: VANCOMYCIN 1GM/250ML 250 ML IV ONE (03:30)
[2022-11-21] MEDS ORDERED: VANCOMYCIN PER PHARMACY 0 MG IV SCH (03:30)
[2022-11-21] MEDS: GABAPENTIN 300 MG CAP PO SCH ×3 (05:58→21:34)
[2022-11-21] MEDS: LACTULOSE 20Gm/30ML SOLN PO SCH ×4 (05:58→17:57)
[2022-11-21 06:07] LABS: INR 1.42 (0.9-1.15); Prothrombin Time 14.6 sec (9.3-11.8)
[2022-11-21 06:22] LABS: Basophils # (auto) 0 10 ^3/uL (0-0.2); Eosinophils # (auto) 0.2 10 ^3/uL (0-0.8); Hemoglobin 11.7 g/dL (13.5-17.5); Lymphocytes # (auto) 0.6 10 ^3/uL (0.4-5.4); Neutrophils # (auto) 1.2 10 ^3/uL (1.6-8.6); Nucleated Red Blood Cells % 0.1 %; White Blood Cell 2.4 10^3/uL (4.4-10.8)
[2022-11-21 06:24] LABS: Basophils % (auto) 0.9 % (0.0-2.0); Eosinophils % (auto) 9.2 % (0.0-7.0); Hematocrit 32.9 % (41.0-53.0); Lymphocytes % (auto) 24.9 % (10.0-50.0); Mean Corpuscular Hemoglobin 38.8 pg (28.0-32.0); Mean Corpuscular Hgb Conc. 35.5 g/dL (32.0-36.0); Mean Corpuscular Volume 109.5 fL (80.0-100.0); Monocytes # (auto) 0.3 10 ^3/uL (0-1.3); Monocytes % (auto) 14.3 % (0.0-12.0); Neutrophils % (auto) 50.7 % (37.0-80.0); Red Blood Cells 3.01 10^6/uL (4.5-5.90); Red Cell Distribution Width 15.5 % (11.8-14.3)
[2022-11-21 06:56] LABS: Platelet Estimate 75
[2022-11-21 06:57] LABS: Anisocytosis Slight; Macrocytosis Moderate; Ovalocytes FEW
[2022-11-21 07:02] LABS: Alanine Aminotransferase 28 U/L (7-40); Albumin 2.1 g/dL (3.2-4.8); Alkaline Phosphatase 113 U/L (46-116); Anion Gap 5 (5-15); Aspartate Aminotransferase 46 U/L (13-40); BUN/Creatinine Ratio 9.3 (10.0-20.0); Blood Urea Nitrogen 11 mg/dL (9-23); Calcium 7.7 mg/dL (8.7-10.4); Carbon Dioxide 23 mmol/L (20-30); Chloride 110 mmol/L (98-107); Glucose 88 mg/dL (74-106); Magnesium 1.6 mg/dL (1.6-2.6); Phosphorus 3.8 mg/dL (2.4-5.1); Sodium 138 mmol/L (136-145)
[2022-11-21 07:03] LABS: Bilirubin, Total 2.6 mg/dL (0.2-1.0); Total Protein 5.2 g/dL (5.7-8.2)
[2022-11-21] MEDS: SPIRONOLACTONE 25 MG TAB PO SCH (09:34)
[2022-11-21] MEDS: rifAXIMin 550 MG TAB PO SCH ×2 (09:34→21:34)
[2022-11-21] MEDS: FUROSEMIDE 20 MG/2 ML VIAL IV SCH (09:35)
[2022-11-21] MEDS: ENALAPRIL MALEATE 2.5 MG TAB PO SCH (09:35)
[2022-11-21] MEDS: CARBAMAZEPINE 100 MG PO SCH (09:53)
[2022-11-21 10:07] LABS: Protein, Body Fluid 1.7 g/dL (.)
[2022-11-21] MEDS: VANCOMYCIN 1GM/250ML 250 ML IV SCH (21:34)
[2022-11-22 05:00] VITALS: BP 111/74; PULSE 64; RESP 19; TEMP 97.8; O2SAT 98
[2022-11-22] MEDS: MORPHINE SULFATE INJ 2 MG/ml SYRG IV PRN ×2 (05:01→09:36)
[2022-11-22] MEDS: GABAPENTIN 300 MG CAP PO SCH ×2 (06:01→14:00)
[2022-11-22] MEDS: LACTULOSE 20Gm/30ML SOLN PO SCH ×3 (06:01→11:00)
[2022-11-22 08:15] VITALS: O2SAT 97
[2022-11-22] MEDS: FUROSEMIDE 20 MG/2 ML VIAL IV SCH (09:36)
[2022-11-22] MEDS: CARBAMAZEPINE 100 MG PO SCH (10:00)
[2022-11-22] MEDS: rifAXIMin 550 MG TAB PO SCH (11:00)
[2022-11-22] MEDS: SPIRONOLACTONE 25 MG TAB PO SCH (11:00)
[2022-11-22] MEDS: ENALAPRIL MALEATE 2.5 MG TAB PO SCH (11:00)
[2022-11-22] MEDS: VANCOMYCIN 1GM/250ML 250 ML IV SCH (15:00)
[2022-11-22 15:01] VITALS: BP 123/75; PULSE 60; RESP 19; TEMP 98; O2SAT 93
== END 2022-11-22 15:00 | disposition home or self-care (01) | DRG 441 ==
LOC: ER 10:11 → EDBD 10:11 → EDUNIT# 10:11 → TELE 18:42 → EDBD 18:42 → TELE-CENTR 11-20 10:17 → CENTRAL 11-21 10:05
PROVIDERS: ADMIT Nurse Practitioner Family; ATTEND Internal Medicine
PROC: 0W9G3ZX Drainage of Peritoneal Cavity, Percutaneous Approach, Diagnostic (ICD-10-PCS; principal; 2022-11-20)
DX: K76.82 Hepatic encephalopathy (principal); E43 Unspecified severe protein-calorie malnutrition; K70.31 Alcoholic cirrhosis of liver with ascites; D53.9 Nutritional anemia, unspecified; D69.6 Thrombocytopenia, unspecified; E66.01 Morbid (severe) obesity due to excess calories; I50.9 Heart failure, unspecified; J32.0 Chronic maxillary sinusitis; J44.9 Chronic obstructive pulmonary disease, unspecified; K46.9 Unspecified abdominal hernia without obstruction or gangrene; Z86.73 Personal history of transient ischemic attack (TIA), and cerebral infarction without residual deficits; Z91.199 Patient's noncompliance with other medical treatment and regimen due to unspecified reason; Z68.31 Body mass index [BMI] 31.0-31.9, adult; Z90.49 Acquired absence of other specified parts of digestive tract
CPT/HCPCS: 36415; 70450; 71045; 74176; 76705; 76942; 80053; 80061; 80307; 81001; 82140; 82306; 82565; 83690; 83735; 83880; 83986; 84100; 84443; 85025; 85610; 85730; 87040; 87077; 87086; 87186; 87205; 89051; 93005; 93306; 96374; 96375; G0378; J2405

== ENCOUNTER 2022-11-27 06:14 | Inpatient (IN) | payer MEDICARE, MEDICAID ==
[~2022-11-27] VITALS: Ht 167.6 cm; Wt 100.0 kg
[~2022-11-27 06:14] MED LIST changes: -[UNRECOGNIZED DRUG - CODE] PO
[2022-11-27 08:06] LABS: Alanine Aminotransferase 48 U/L (7-40); Alkaline Phosphatase 137 U/L (46-116); Anion Gap 12 (5-15); Aspartate Aminotransferase 72 U/L (13-40); BUN/Creatinine Ratio 14.2 (10.0-20.0); Bilirubin, Total 5.8 mg/dL (0.2-1.0); Blood Urea Nitrogen 21 mg/dL (9-23); Calcium 9.3 mg/dL (8.5-10.1); Carbon Dioxide 19 mmol/L (20-30); Chloride 104 mmol/L (98-107); Glucose 122 mg/dL (74-106); Potassium 4.3 mmol/L (3.5-5.1); Sodium 135 mmol/L (136-145)
[2022-11-27 08:20] LABS: Rapid Influenza A Negative (Negative); Rapid Influenza B Negative (Negative)
[2022-11-27 08:29] LABS: COVID19 ANTIGEN SOFIA FIA NEGATIVE (NEGATIVE)
[2022-11-27 08:42] LABS: Basophils % (auto) 0.1 % (0.0-2.0); Eosinophils % (auto) 0.3 % (0.0-7.0); Lymphocytes # (auto) 0.8 10 ^3/uL (0.4-5.4); Monocytes # (auto) 0.6 10 ^3/uL (0-1.3); Monocytes % (auto) 7.7 % (0.0-12.0); Neutrophils # (auto) 6.6 10 ^3/uL (1.6-8.6); Neutrophils % (auto) 81.9 % (37.0-80.0); Nucleated Red Blood Cells % 0.3 %; White Blood Cell 8.1 10^3/uL (4.4-10.8)
[2022-11-27 08:43] LABS: Basophils # (auto) 0 10 ^3/uL (0-0.2); Eosinophils # (auto) 0 10 ^3/uL (0-0.8); Hematocrit 44.1 % (41.0-53.0); Hemoglobin 15.8 g/dL (13.5-17.5); Mean Corpuscular Volume 109.2 fL (80.0-100.0); Red Blood Cells 4.04 10^6/uL (4.5-5.90)
[2022-11-27 08:44] LABS: Mean Corpuscular Hgb Conc. 35.8 g/dL (32.0-36.0); Red Cell Distribution Width 15.7 % (11.8-14.3)
[2022-11-27 09:10] LABS: Lipase 48 U/L (12-53)
[2022-11-27 10:00] VITALS: PULSE 84; RESP 12; O2SAT 94
[2022-11-27] MEDS ORDERED: PROCHLORPERAZINE EDISYLATE 5 MG/ML 2ML VIAL IM ONE (11:15)
[2022-11-27] MEDS ORDERED: SODIUM CHLORIDE 0.9% 500 ML IVB ONE (11:30)
[2022-11-27] MEDS ORDERED: PANTOPRAZOLE 40 MG/10 ML VIAL INJ IV ONE (12:15)
[2022-11-27] MEDS ORDERED: HALOPERIDOL LACTATE 5 MG/ML INJ VIAL IM ONE (12:30)
[2022-11-27 12:36] LABS: Basophils # (auto) 0 10 ^3/uL (0-0.2); Eosinophils # (auto) 0 10 ^3/uL (0-0.8); Lymphocytes # (auto) 0.7 10 ^3/uL (0.4-5.4); Monocytes # (auto) 0.7 10 ^3/uL (0-1.3)
[2022-11-27 12:38] LABS: Basophils % (auto) 0.3 % (0.0-2.0); Eosinophils % (auto) 0.1 % (0.0-7.0); Hematocrit 44.6 % (41.0-53.0); Hemoglobin 15.9 g/dL (13.5-17.5); Lymphocytes % (auto) 9.6 % (10.0-50.0); Mean Corpuscular Hemoglobin 39.5 pg (28.0-32.0); Mean Corpuscular Hgb Conc. 35.6 g/dL (32.0-36.0); Mean Corpuscular Volume 110.8 fL (80.0-100.0); Neutrophils # (auto) 6.2 10 ^3/uL (1.6-8.6); Nucleated Red Blood Cells % 0.3 %; Red Blood Cells 4.02 10^6/uL (4.5-5.90); White Blood Cell 7.7 10^3/uL (4.4-10.8)
[2022-11-27] MEDS ORDERED: ONDANSETRON HCL 4 MG/2 ML VIAL IV PRN (13:00)
[2022-11-27] MEDS ORDERED: ACETAMINOPHEN 325 MG TAB PO PRN (13:00)
[2022-11-27] MEDS ORDERED: SODIUM CHLORIDE 0.9% 1,000 ML IV SCH (13:00)
[2022-11-27 13:12] LABS: INR 1.42 (0.9-1.15); Prothrombin Time 14.6 sec (9.3-11.8)
[2022-11-27] MEDS ORDERED: LIDOCAINE VISCOUS 2% 15ML UD MT ONE (13:45)
[2022-11-27] MEDS ORDERED: LIDOCAINE HCL 2% TOP JELLY 5ML TOP ONE (13:45)
[2022-11-27] MEDS ORDERED: LORazepam 2MG/ML-1ML VIAL IV ONE (14:15)
[2022-11-27 14:40] LABS: Macrocytosis Moderate; Platelet Estimate Adequate
[2022-11-27] MEDS ORDERED: OCTREOTIDE ACETATE 500 MCG in SODIUM CHL 0.9% 99 ML IV SCH (15:30)
[2022-11-27] MEDS ORDERED: PANTOPRAZOLE 80 MG in SODIUM CHL 0.9% 100 ML IV ONE (15:30)
[2022-11-27] MEDS ORDERED: OCTREOTIDE ACETATE 100 MCG in SODIUM CHL 0.9% 50 ML IV ONE (15:30)
[2022-11-27 15:37] LABS: Alanine Aminotransferase 40 U/L (7-40); Albumin 2.9 g/dL (3.2-4.8); Alkaline Phosphatase 138 U/L (46-116); Anion Gap 16 (5-15); Aspartate Aminotransferase 71 U/L (13-40); BUN/Creatinine Ratio 12.4 (10.0-20.0); Blood Urea Nitrogen 21 mg/dL (9-23); Carbon Dioxide 16 mmol/L (20-30); Chloride 104 mmol/L (98-107); Glucose 132 mg/dL (74-106); Lipase 47 U/L (12-53); Potassium 4.3 mmol/L (3.5-5.1); Sodium 136 mmol/L (136-145)
[2022-11-27 15:38] LABS: Bilirubin, Total 4.1 mg/dL (0.2-1.0); Total Protein 6.7 g/dL (5.7-8.2)
[2022-11-27] MEDS: PANTOPRAZOLE 40mg/50ML NS AE 50 ML IV SCH ×2 (17:38→20:26)
[2022-11-27] MEDS ORDERED: LACTULOSE 20Gm/30ML SOLN PO SCH (18:00)
[2022-11-27 19:00] LABS: Basophils # (auto) 0 10 ^3/uL (0-0.2); Basophils % (auto) 0.1 % (0.0-2.0); Eosinophils # (auto) 0 10 ^3/uL (0-0.8); Eosinophils % (auto) 0.1 % (0.0-7.0); Hematocrit 44.5 % (41.0-53.0); Hemoglobin 15.3 g/dL (13.5-17.5); Lymphocytes # (auto) 0.7 10 ^3/uL (0.4-5.4); Lymphocytes % (auto) 10.2 % (10.0-50.0); Mean Corpuscular Hemoglobin 38.2 pg (28.0-32.0); Mean Corpuscular Hgb Conc. 34.3 g/dL (32.0-36.0); Mean Corpuscular Volume 111.5 fL (80.0-100.0); Monocytes # (auto) 0.9 10 ^3/uL (0-1.3); Monocytes % (auto) 12.5 % (0.0-12.0); Neutrophils # (auto) 5.5 10 ^3/uL (1.6-8.6); Neutrophils % (auto) 77.1 % (37.0-80.0); Nucleated Red Blood Cells % 0.5 %; Red Blood Cells 3.99 10^6/uL (4.5-5.90); Red Cell Distribution Width 16.3 % (11.8-14.3); White Blood Cell 7.1 10^3/uL (4.4-10.8)
[2022-11-27 19:15] VITALS: PULSE 92; RESP 15; O2SAT 96
[2022-11-27 19:59] LABS: Anisocytosis Slight; Macrocytosis Moderate; Platelet Estimate Adequate
[2022-11-27 21:12] VITALS: BP 118/68; PULSE 78; RESP 13; TEMP 97.9; O2SAT 96
[2022-11-27 21:33] LABS: Urine Bacteria NONE SEEN /hpf (None Seen); Urine Blood 1+ /uL (Negative); Urine Clarity Clear (Clear); Urine Color Yellow (Yellow); Urine Hyaline Cast MANY /lpf (0 - 2); Urine Mucus FEW (None Seen); Urine Protein, UAD TRACE (Negative); Urine Specific Gravity 1.022 (1.001-1.035); Urine Urobilinogen Normal (Negative); Urine WBC 1 /hpf (0 - 3); Urine pH 5.5 (5.0-8.0)
[2022-11-27] MEDS ORDERED: rifAXIMin 550 MG TAB PO SCH (22:00)
[2022-11-28] MEDS ORDERED: PANTOPRAZOLE 40 MG/10 ML VIAL INJ IV SCH (10:00)
[2022-11-28] MEDS ORDERED: SPIRONOLACTONE 25 MG TAB PO SCH (10:00)
[2022-11-28] MEDS ORDERED: ENOXAPARIN SOD 40 MG/0.4 ML SYRINGE SC SCH (10:00)
[2022-11-28] MEDS ORDERED: SPIRONOLACTONE PO SCH (10:00)
== END 2022-11-27 21:25 | disposition short-term general hospital (02) | DRG 432 ==
LOC: ER 06:14 → OVERFLOW 12:59
PROVIDERS: ADMIT Nurse Practitioner Family; ATTEND Nurse Practitioner Family
DX: K70.30 Alcoholic cirrhosis of liver without ascites (principal); E43 Unspecified severe protein-calorie malnutrition; K76.6 Portal hypertension; K92.2 Gastrointestinal hemorrhage, unspecified; K56.609 Unspecified intestinal obstruction, unspecified as to partial versus complete obstruction; N17.9 Acute kidney failure, unspecified; Z20.822 Contact with and (suspected) exposure to COVID-19; K76.82 Hepatic encephalopathy; E66.01 Morbid (severe) obesity due to excess calories; I10 Essential (primary) hypertension; Z68.35 Body mass index [BMI] 35.0-35.9, adult; Z82.49 Family history of ischemic heart disease and other diseases of the circulatory system
CPT/HCPCS: 36415; 71045; 74176; 76775; 80053; 81001; 82140; 83690; 84484; 85025; 85610; 85730; 86850; 86900; 86901; 87426; 87804; 93005; 96361; 96372; 96374; 96375; C9113; G0378

== ENCOUNTER 2023-01-01 12:02 | Inpatient (IN) | payer MEDICARE, MEDICAID ==
[~2023-01-01] VITALS: Ht 167.6 cm; Wt 90.6 kg
[2023-01-01 13:21] LABS: Basophils # (auto) 0 10 ^3/uL (0-0.2); Hemoglobin 12.3 g/dL (13.5-17.5); Lymphocytes # (auto) 0.8 10 ^3/uL (0.4-5.4); Neutrophils # (auto) 1.4 10 ^3/uL (1.6-8.6); Nucleated Red Blood Cells % 0.1 %; White Blood Cell 2.7 10^3/uL (4.4-10.8)
[2023-01-01 13:25] LABS: Eosinophils # (auto) 0.2 10 ^3/uL (0-0.8); Eosinophils % (auto) 5.8 % (0.0-7.0); Hematocrit 36.1 % (41.0-53.0); Lymphocytes % (auto) 29.8 % (10.0-50.0); Mean Corpuscular Hemoglobin 37.5 pg (28.0-32.0); Mean Corpuscular Volume 110.5 fL (80.0-100.0); Monocytes # (auto) 0.4 10 ^3/uL (0-1.3); Monocytes % (auto) 13.2 % (0.0-12.0); Neutrophils % (auto) 50.2 % (37.0-80.0); Red Blood Cells 3.27 10^6/uL (4.5-5.90); Red Cell Distribution Width 15.1 % (11.8-14.3)
[2023-01-01 13:35] LABS: Alanine Aminotransferase 45 U/L (7-40); Albumin 2.2 g/dL (3.2-4.8); Alkaline Phosphatase 174 U/L (46-116); Anion Gap 5 (5-15); Aspartate Aminotransferase 79 U/L (13-40); BUN/Creatinine Ratio 15.5 (10.0-20.0); Bilirubin, Total 1.8 mg/dL (0.2-1.0); Blood Urea Nitrogen 18 mg/dL (9-23); Carbon Dioxide 25 mmol/L (20-30); Chloride 106 mmol/L (98-107); Glucose 100 mg/dL (74-106); Potassium 4.7 mmol/L (3.5-5.1); Sodium 136 mmol/L (136-145)
[2023-01-01 13:36] LABS: Total Protein 5.5 g/dL (5.7-8.2)
[2023-01-01 14:06] LABS: INR 1.35 (0.9-1.15); Prothrombin Time 13.9 sec (9.3-11.8)
[2023-01-01 14:45] LABS: Platelet Estimate Decreased
[2023-01-01] MEDS ORDERED: DOCUSATE SOD 100 MG CAP PO PRN (17:30)
[2023-01-01] MEDS: LACTULOSE 20Gm/30ML SOLN PO SCH (20:15)
[2023-01-02] VITALS (8 sets, daily range): BP systolic 97–110; BP diastolic 59–62; PULSE 61–75; RESP 18–20; TEMP 97.4–98.2; O2SAT 95–100
[2023-01-02] MEDS: rifAXIMin 550 MG TAB PO SCH ×3 (00:52→21:54)
[2023-01-02] MEDS: LACTULOSE 20Gm/30ML SOLN PO SCH ×4 (00:52→22:00)
[2023-01-02] MEDS: GABAPENTIN 300 MG CAP PO SCH ×4 (00:52→21:54)
[2023-01-02] MEDS ORDERED: INFLUENZA QUAD 2023-2024 0.5 ML SYRG IM ONE (03:00)
[2023-01-02] MEDS ORDERED: PNEUMOCOCCAL VACC POLYS 25 MCG/0.5 ML VIAL IM ONE (03:00)
[2023-01-02 06:40] LABS: Alanine Aminotransferase 35 U/L (7-40); Albumin 2.1 g/dL (3.2-4.8); Alkaline Phosphatase 98 U/L (46-116); Anion Gap 5 (5-15); Aspartate Aminotransferase 73 U/L (13-40); BUN/Creatinine Ratio 12.4 (10.0-20.0); Bilirubin, Total 2.1 mg/dL (0.2-1.0); Blood Urea Nitrogen 14 mg/dL (9-23); Calcium 7.6 mg/dL (8.7-10.4); Carbon Dioxide 22 mmol/L (20-30); Chloride 109 mmol/L (98-107); Glucose 76 mg/dL (74-106); Potassium 4.4 mmol/L (3.5-5.1); Sodium 136 mmol/L (136-145); Total Protein 5.2 g/dL (5.7-8.2)
[2023-01-02 07:21] LABS: White Blood Cell 2.6 10^3/uL (4.4-10.8)
[2023-01-02 07:24] LABS: Basophils # (auto) 0 10 ^3/uL (0-0.2); Eosinophils # (auto) 0.2 10 ^3/uL (0-0.8); Eosinophils % (auto) 7.1 % (0.0-7.0); Hematocrit 34.7 % (41.0-53.0); Lymphocytes # (auto) 0.9 10 ^3/uL (0.4-5.4); Lymphocytes % (auto) 35.1 % (10.0-50.0); Mean Corpuscular Hemoglobin 38.6 pg (28.0-32.0); Mean Corpuscular Hgb Conc. 34.5 g/dL (32.0-36.0); Mean Corpuscular Volume 111.7 fL (80.0-100.0); Monocytes # (auto) 0.3 10 ^3/uL (0-1.3); Monocytes % (auto) 11.5 % (0.0-12.0); Neutrophils # (auto) 1.2 10 ^3/uL (1.6-8.6); Neutrophils % (auto) 45.3 % (37.0-80.0); Nucleated Red Blood Cells % 0.2 %; Red Cell Distribution Width 14.9 % (11.8-14.3)
[2023-01-02] MEDS: PANTOPRAZOLE 40 MG TAB PO SCH (09:55)
[2023-01-02] MEDS ORDERED: FUROSEMIDE 40 MG TAB PO SCH (10:00)
[2023-01-02] MEDS ORDERED: FUROSEMIDE 20 MG/2 ML VIAL IV ONE (10:00)
[2023-01-02] MEDS ORDERED: SPIRONOLACTONE 25 MG TAB PO SCH (10:00)
[2023-01-02] MEDS ORDERED: ENALAPRIL MALEATE 2.5 MG TAB PO SCH (10:00)
[2023-01-02] MEDS: SPIRONOLACTONE 25 MG TAB PO SCH (10:00)
[2023-01-02 10:53] LABS: Urine WBC None Seen /hpf (0 - 3)
[2023-01-02 11:15] LABS: Urine Bacteria NONE SEEN /hpf (None Seen); Urine Blood Negative /uL (Negative); Urine Clarity Clear (Clear); Urine Color Yellow (Yellow); Urine Protein, UAD Negative (Negative); Urine Specific Gravity 1.011 (1.001-1.035); Urine Urobilinogen Normal (Negative)
[2023-01-02 12:43] LABS: Platelet Estimate Decreased
[2023-01-02 12:45] LABS: Macrocytosis Marked
[2023-01-02] MEDS: FUROSEMIDE 20 MG/2 ML VIAL IV SCH (17:55)
[2023-01-03 05:00] VITALS: BP 100/59; PULSE 69; RESP 19; TEMP 98; O2SAT 96
[2023-01-03] MEDS: GABAPENTIN 300 MG CAP PO SCH ×2 (05:59→15:35)
[2023-01-03] MEDS: FUROSEMIDE 20 MG/2 ML VIAL IV SCH (06:00)
[2023-01-03] MEDS: LACTULOSE 20Gm/30ML SOLN PO SCH ×2 (06:00→15:36)
[2023-01-03 06:31] LABS: Anion Gap 7 (5-15); Basophils # (auto) 0 10 ^3/uL (0-0.2); Carbon Dioxide 22 mmol/L (20-30); Chloride 107 mmol/L (98-107); Eosinophils # (auto) 0.2 10 ^3/uL (0-0.8); Lymphocytes # (auto) 0.7 10 ^3/uL (0.4-5.4); Mean Corpuscular Volume 113.6 fL (80.0-100.0); Monocytes # (auto) 0.4 10 ^3/uL (0-1.3); Neutrophils # (auto) 1.4 10 ^3/uL (1.6-8.6); Nucleated Red Blood Cells % 0.2 %; Sodium 136 mmol/L (136-145); White Blood Cell 2.7 10^3/uL (4.4-10.8)
[2023-01-03 06:33] LABS: Calcium 7.9 mg/dL (8.5-10.1)
[2023-01-03 06:37] LABS: BUN/Creatinine Ratio 12.5 (10.0-20.0); Blood Urea Nitrogen 16 mg/dL (9-23); Glucose 83 mg/dL (74-106)
[2023-01-03 08:00] VITALS: PULSE 70; RESP 20; O2SAT 96
[2023-01-03 08:13] LABS: Eosinophils % (auto) 6.3 % (0.0-7.0); Hematocrit 36.6 % (41.0-53.0); Hemoglobin 12.2 g/dL (13.5-17.5); Lymphocytes % (auto) 26.4 % (10.0-50.0); Mean Corpuscular Hemoglobin 37.7 pg (28.0-32.0); Mean Corpuscular Hgb Conc. 33.2 g/dL (32.0-36.0); Monocytes % (auto) 13.4 % (0.0-12.0); Neutrophils % (auto) 52.9 % (37.0-80.0); Red Blood Cells 3.23 10^6/uL (4.5-5.90); Red Cell Distribution Width 15.6 % (11.8-14.3)
[2023-01-03 08:39] LABS: Macrocytosis Marked; Platelet Estimate Decreased
[2023-01-03] MEDS: SPIRONOLACTONE 25 MG TAB PO SCH (10:00)
[2023-01-03] MEDS: PANTOPRAZOLE 40 MG TAB PO SCH (10:18)
[2023-01-03] MEDS: rifAXIMin 550 MG TAB PO SCH (10:18)
[2023-01-03] MEDS ORDERED: LACT10SO3 PO (10:32)
[2023-01-03 13:00] VITALS: BP 107/63; PULSE 55; RESP 18; TEMP 98.2; O2SAT 97
[2023-01-03 13:30] VITALS: BP 103/60; PULSE 69; RESP 19; TEMP 98; O2SAT 96
== END 2023-01-03 16:30 | disposition home or self-care (01) | DRG 291 ==
LOC: ER 12:02 → OVERFLOW 17:28 → CENTRAL 23:18
PROVIDERS: ADMIT Nurse Practitioner Family; ATTEND Internal Medicine
DX: I11.0 Hypertensive heart disease with heart failure (principal); I50.33 Acute on chronic diastolic (congestive) heart failure; D61.818 Other pancytopenia; E44.0 Moderate protein-calorie malnutrition; E72.20 Disorder of urea cycle metabolism, unspecified; R18.8 Other ascites; K72.10 Chronic hepatic failure without coma; K76.82 Hepatic encephalopathy; E66.01 Morbid (severe) obesity due to excess calories; Z23 Encounter for immunization; J44.9 Chronic obstructive pulmonary disease, unspecified; D69.6 Thrombocytopenia, unspecified; K43.9 Ventral hernia without obstruction or gangrene; K74.60 Unspecified cirrhosis of liver; R74.01 Elevation of levels of liver transaminase levels; Z86.73 Personal history of transient ischemic attack (TIA), and cerebral infarction without residual deficits; Z82.49 Family history of ischemic heart disease and other diseases of the circulatory system; Z68.32 Body mass index [BMI] 32.0-32.9, adult; Z90.49 Acquired absence of other specified parts of digestive tract
CPT/HCPCS: 36415; 70450; 74176; 76705; 80048; 80053; 81001; 82140; 82962; 83880; 84484; 85025; 85610; 87081; 93005; 93970; 97163; G0378

== ENCOUNTER 2023-04-22 11:12 | Inpatient (IN) | payer MEDICARE, MEDICAID ==
[~2023-04-22] VITALS: Ht 167.6 cm; Wt 97.0 kg
[2023-04-22 12:00] LABS: Basophils # (auto) 0 10 ^3/uL (0-0.2); Eosinophils # (auto) 0.1 10 ^3/uL (0-0.8); Hemoglobin 11.7 g/dL (13.5-17.5); Lymphocytes # (auto) 0.7 10 ^3/uL (0.4-5.4)
[2023-04-22 12:02] LABS: Basophils % (auto) 0.6 % (0.0-2.0); Eosinophils % (auto) 1.5 % (0.0-7.0); Hematocrit 34.6 % (41.0-53.0); Lymphocytes % (auto) 16.6 % (10.0-50.0); Mean Corpuscular Hemoglobin 38.1 pg (28.0-32.0); Mean Corpuscular Hgb Conc. 33.7 g/dL (32.0-36.0); Monocytes # (auto) 0.6 10 ^3/uL (0-1.3); Monocytes % (auto) 13.5 % (0.0-12.0); Neutrophils % (auto) 67.8 % (37.0-80.0); Nucleated Red Blood Cells % 0.5 %; Red Blood Cells 3.07 10^6/uL (4.5-5.90); Red Cell Distribution Width 16.8 % (11.8-14.3); White Blood Cell 4.4 10^3/uL (4.4-10.8)
[2023-04-22 12:19] LABS: INR 1.43 (0.9-1.15); Prothrombin Time 14.7 sec (9.3-11.8)
[2023-04-22 12:21] LABS: Alanine Aminotransferase 36 U/L (7-40); Albumin 2.1 g/dL (3.2-4.8); Alkaline Phosphatase 90 U/L (46-116); Anion Gap 6 (5-15); Aspartate Aminotransferase 56 U/L (13-40); BUN/Creatinine Ratio 17.9 (10.0-20.0); Blood Urea Nitrogen 19 mg/dL (9-23); Calcium 7.7 mg/dL (8.7-10.4); Carbon Dioxide 23 mmol/L (20-30); Chloride 108 mmol/L (98-107); Glucose 85 mg/dL (74-106); Lipase 36 U/L (12-53); Potassium 4.1 mmol/L (3.5-5.1); Sodium 137 mmol/L (136-145)
[2023-04-22 12:22] LABS: Bilirubin, Total 2.5 mg/dL (0.2-1.0)
[2023-04-22 12:57] LABS: Anisocytosis Slight; Macrocytosis Moderate; Platelet Estimate Decreased
[2023-04-22 15:20] VITALS: PULSE 85; RESP 19; O2SAT 97
[2023-04-22] MEDS ORDERED: GI COCKTAIL PO PRN (16:00)
[2023-04-22] MEDS ORDERED: DOCUSATE SOD 100 MG CAP PO PRN (16:00)
[2023-04-22 16:19] VITALS: BP 108/65; PULSE 85; RESP 19; TEMP 97.6; O2SAT 97
[2023-04-22 16:23] VITALS: O2SAT 97
[2023-04-22 17:02] LABS: Cholesterol 119 mg/dL (< 200)
[2023-04-22 17:44] LABS: Triglycerides 66 mg/dL (< 150)
[2023-04-22 17:45] LABS: LDL Cholesterol 61 mg/dL (< 100)
[2023-04-22 17:46] LABS: HDL Cholesterol 42 mg/dL (40-59)
[2023-04-22] MEDS ORDERED: LACTULOSE 20Gm/30ML SOLN PO PRN (18:00)
[2023-04-22] MEDS: ENOXAPARIN SOD 40 MG/0.4 ML SYRINGE SC ONE (18:37)
[2023-04-22 22:00] VITALS: BP 119/78; PULSE 59; RESP 20; TEMP 97.7; O2SAT 97
[2023-04-22] MEDS: rifAXIMin 550 MG TAB PO SCH (22:23)
[2023-04-22] MEDS: GABAPENTIN 300 MG CAP PO SCH (22:23)
[2023-04-23] VITALS (11 sets, daily range): BP systolic 95–125; BP diastolic 53–84; PULSE 58–88; RESP 16–21; TEMP 97.5–98.4; O2SAT 95–100
[2023-04-23 05:31] LABS: Basophils # (auto) 0 10 ^3/uL (0-0.2); Eosinophils # (auto) 0.1 10 ^3/uL (0-0.8); Hemoglobin 11.1 g/dL (13.5-17.5); Mean Corpuscular Hgb Conc. 34.6 g/dL (32.0-36.0); Mean Corpuscular Volume 110.4 fL (80.0-100.0); Monocytes # (auto) 0.4 10 ^3/uL (0-1.3); White Blood Cell 2.7 10^3/uL (4.4-10.8)
[2023-04-23 05:34] LABS: Basophils % (auto) 0.5 % (0.0-2.0); Eosinophils % (auto) 4.1 % (0.0-7.0); Hematocrit 32.1 % (41.0-53.0); Lymphocytes # (auto) 0.6 10 ^3/uL (0.4-5.4); Lymphocytes % (auto) 23.6 % (10.0-50.0); Mean Corpuscular Hemoglobin 38.3 pg (28.0-32.0); Monocytes % (auto) 14.8 % (0.0-12.0); Neutrophils # (auto) 1.6 10 ^3/uL (1.6-8.6); Nucleated Red Blood Cells % 0.2 %; Red Blood Cells 2.91 10^6/uL (4.5-5.90); Red Cell Distribution Width 16.8 % (11.8-14.3)
[2023-04-23 05:47] LABS: Alanine Aminotransferase 34 U/L (7-40); Alkaline Phosphatase 84 U/L (46-116); Anion Gap 5 (5-15); Aspartate Aminotransferase 46 U/L (13-40); BUN/Creatinine Ratio 15.7 (10.0-20.0); Bilirubin, Total 2.2 mg/dL (0.2-1.0); Blood Urea Nitrogen 14 mg/dL (9-23); Calcium 7.6 mg/dL (8.5-10.1); Carbon Dioxide 23 mmol/L (20-30); Chloride 110 mmol/L (98-107); Glucose 80 mg/dL (74-106); Potassium 3.7 mmol/L (3.5-5.1); Sodium 138 mmol/L (136-145); Total Protein 4.6 g/dL (5.7-8.2)
[2023-04-23 06:21] LABS: Anisocytosis Slight; Giant Platelets Few; Large Platelets FEW; Macrocytosis Marked; Platelet Estimate Decreased
[2023-04-23] MEDS: ALBUTEROL SULF 2.5 MG/0.5ML(0.5%) NEB SOLN NEB PRN (07:51)
[2023-04-23] MEDS: ACETAMINOPHEN 325 MG TAB PO PRN (09:38)
[2023-04-23] MEDS: ENOXAPARIN SOD 40 MG/0.4 ML SYRINGE SC SCH (10:00)
[2023-04-23] MEDS: SPIRONOLACTONE 25 MG TAB PO SCH ×2 (10:00→21:10)
[2023-04-23] MEDS: ENALAPRIL MALEATE 2.5 MG TAB PO SCH (10:00)
[2023-04-23] MEDS: PANTOPRAZOLE 40 MG TAB PO SCH (13:26)
[2023-04-23 14:46] LABS: Body Fluid Polymorphonuclear 0 % (0-25); Body Fluid Red Blood Cells 1390 CUMM (0-2000); Body Fluid White Blood Cells 138 CUMM (0-200)
[2023-04-23] MEDS: FUROSEMIDE 20 MG/2 ML VIAL IV ONE (16:48)
[2023-04-23] MEDS ORDERED: FUROSEMIDE 20 MG/2 ML VIAL IV SCH (18:00)
[2023-04-23] MEDS: FUROSEMIDE 20 MG/2 ML VIAL IV SCH (18:29)
[2023-04-24] VITALS (9 sets, daily range): BP systolic 98–153; BP diastolic 55–93; PULSE 63–70; RESP 15–20; TEMP 98–98.5; O2SAT 94–97
[2023-04-24 07:14] LABS: Anion Gap 8 (5-15); Carbon Dioxide 22 mmol/L (20-30); Chloride 108 mmol/L (98-107); Potassium 3.6 mmol/L (3.5-5.1); Sodium 138 mmol/L (136-145)
[2023-04-24 07:16] LABS: Calcium 7.4 mg/dL (8.5-10.1)
[2023-04-24 07:21] LABS: Blood Urea Nitrogen 20 mg/dL (9-23); Glucose 78 mg/dL (74-106)
[2023-04-24] MEDS ORDERED: FUROSEMIDE 20 MG/2 ML VIAL IV ONE (12:45)
[2023-04-24] MEDS: FUROSEMIDE 20 MG/2 ML VIAL IV ONE (12:51)
[2023-04-24 13:07] LABS: Protein, Body Fluid 1.2 g/dL (.)
[2023-04-24 16:08] LABS: Urine Bacteria FEW /hpf (None Seen); Urine Blood Negative /uL (Negative); Urine Clarity Clear (Clear); Urine Color Colorless (Yellow); Urine Protein, UAD Negative (Negative); Urine Specific Gravity 1.005 (1.001-1.035); Urine Urobilinogen Normal (Negative); Urine WBC <1 /hpf (0 - 3)
[2023-04-25] VITALS (8 sets, daily range): BP systolic 99–109; BP diastolic 59–65; PULSE 63–76; RESP 14–19; TEMP 97.6–98.7; O2SAT 96–100
[2023-04-25 06:23] LABS: Chloride 108 mmol/L (98-107); Potassium 3.6 mmol/L (3.5-5.1); Sodium 138 mmol/L (136-145)
[2023-04-25 06:24] LABS: Anion Gap 5 (5-15); Calcium 7.5 mg/dL (8.5-10.1); Carbon Dioxide 25 mmol/L (20-30)
[2023-04-25 06:29] LABS: BUN/Creatinine Ratio 13.9 (10.0-20.0); Blood Urea Nitrogen 17 mg/dL (9-23); Glucose 77 mg/dL (74-106)
[2023-04-25] MEDS: ceFAZolin 1GM/50ML 50 ML IV SCH (13:47)
[2023-04-26] VITALS (8 sets, daily range): BP systolic 101–128; BP diastolic 61–81; PULSE 61–71; RESP 16–20; TEMP 97.4–98.6; O2SAT 96–100
[2023-04-26] MEDS: GABAPENTIN 100 MG CAP PO SCH (21:25)
[2023-04-26] MEDS: CEPHALEXIN 250 MG CAP PO SCH (21:25)
[2023-04-27] VITALS (10 sets, daily range): BP systolic 96–133; BP diastolic 59–76; PULSE 51–81; RESP 16–18; TEMP 97.6–98.1; O2SAT 93–98
[2023-04-27 14:59] LABS: Chloride 106 mmol/L (98-107); Potassium 3.9 mmol/L (3.5-5.1); Sodium 135 mmol/L (136-145)
[2023-04-27 15:00] LABS: Anion Gap 3 (5-15); Carbon Dioxide 26 mmol/L (20-30)
[2023-04-27 15:01] LABS: Calcium 7.9 mg/dL (8.5-10.1)
[2023-04-27 15:06] LABS: Blood Urea Nitrogen 17 mg/dL (9-23); Glucose 77 mg/dL (74-106)
[2023-04-28] VITALS (8 sets, daily range): BP systolic 102–114; BP diastolic 64–74; PULSE 66–79; RESP 16–20; TEMP 36.9; O2SAT 96–99
[2023-04-28] MEDS ORDERED: SPIR25TA PO (15:21)
[2023-04-28] MEDS ORDERED: GAB100C PO (15:21)
[2023-04-28] MEDS ORDERED: FURO1TAB31 PO (15:21)
== END 2023-04-28 18:45 | disposition home or self-care (01) | DRG 432 ==
LOC: ER 11:12 → OVERFLOW 15:52 → WEST WING 18:10
PROVIDERS: ADMIT Nurse Practitioner Family; ATTEND Internal Medicine
PROC: 0W9G3ZZ Drainage of Peritoneal Cavity, Percutaneous Approach (ICD-10-PCS; principal; 2023-04-23)
DX: K70.31 Alcoholic cirrhosis of liver with ascites (principal); I50.33 Acute on chronic diastolic (congestive) heart failure; E44.0 Moderate protein-calorie malnutrition; L03.115 Cellulitis of right lower limb; I11.0 Hypertensive heart disease with heart failure; I48.91 Unspecified atrial fibrillation; J44.9 Chronic obstructive pulmonary disease, unspecified; F10.10 Alcohol abuse, uncomplicated; Y90.9 Presence of alcohol in blood, level not specified; E66.01 Morbid (severe) obesity due to excess calories; K43.9 Ventral hernia without obstruction or gangrene; D64.9 Anemia, unspecified; D69.6 Thrombocytopenia, unspecified; Z68.34 Body mass index [BMI] 34.0-34.9, adult; Z79.899 Other long term (current) drug therapy; Z86.73 Personal history of transient ischemic attack (TIA), and cerebral infarction without residual deficits; Z90.49 Acquired absence of other specified parts of digestive tract; Z86.718 Personal history of other venous thrombosis and embolism; E87.70 Fluid overload, unspecified
CPT/HCPCS: 36415; 71045; 71275; 74176; 76705; 76942; 80048; 80053; 80061; 81001; 82140; 83690; 83880; 83986; 84443; 84484; 85025; 85379; 85610; 87205; 89051; 93005; 93306; 93970; 94640; 97110; 97116; 97163; 97530; G0378